=== PATIENT | female | born 1955 | race Caucasian/White ===

== ENCOUNTER 2018-12-08 11:05 | Outpatient (CLI) | payer OTHER ==
[2018-12-08] MEDS ORDERED: ISOVUE-370 76%-LOCM 1 ML ONE (15:22)
--- NOTE | 2018-12-08 16:18 | CT ---
Exam: Chest CT with contrast Abdomen CT with contrast Pelvic CT with contrast HISTORY: Breast cancer with new suspicious bone lesion. Evaluate for metastatic disease. Correlation: Abdomen and pelvic CT performed at [facility] in [place] 11/25/2018 COMPARISON: None FINDINGS: Chest CT: Mediastinum: No mass, lymphadenopathy or hematoma. Aorta: Normal caliber. No periaortic fat stranding Heart: Upper normal heart size. No significant pericardial fluid Trachea and central bronchi: Patent Pleural spaces: Small bilateral effusions Right lung: Minimal dependent atelectatic changes. Left lung:Minimal dependent atelectatic changes. Pneumothorax: None Abdomen CT: Gallbladder: Surgically absent Portal vein: Patent Liver: Enhancing focus in the anterior segment right hepatic lobe. Vessels course through this and a flash filling hemangioma is suspected.. Spleen: Appropriate enhancement Pancreas: Appropriate enhancement Adrenal glands: Appropriate enhancement Lymphadenopathy: No gastrohepatic, retrocrural or periportal lymphadenopathy Kidneys: Symmetric enhancement. Bilaterally no obstructive uropathy. Hypodensity in the upper pole of the left kidney and lower pole the right kidney are compatible with renal cortical cysts. Mesentery: No mass, lymphadenopathy, free air or free fluid Alimentary canal: No evidence of bowel obstruction. Normal caliber small bowel loops. Ileocecal junct ion is normal. Scattered fecal material in a nondistended, nondilated colon. Pelvis CT: Surgically absent uterus. No pelvic mass, lymphadenopathy, free air or free fluid. Unremarkable urina ry bladder. Osseous structures:Diffuse osseous metastases involving all of the thoracic and lumbar vertebra as we ll as multiple ribs. There is also diffuse bony metastases in the pelvis and sacrum. No evidence of a pathologic fracture. Central spinal canal is patent. IMPRESSION: 1. Diffuse osseous metastases. No pathologic fracture 2. Increased triangular-shaped density of the right hepatic lobe with vessels coursing through this region, likely representing a Bharath lesion. 3. Bilateral renal cortical cysts. No evidence of bowel obstruction 4. Dependent atelectatic changes in the lung bases Transcribed Date/Time: 12/08/2018 4:41 PM
== END 2018-12-08 11:06 | disposition home or self-care (01) ==
LOC: BICCT 11:05
PROVIDERS: ATTEND Internal Medicine Hematology & Oncology
DX: C50.919 Malignant neoplasm of unspecified site of unspecified female breast (principal); C79.51 Secondary malignant neoplasm of bone; K76.89 Other specified diseases of liver; N28.1 Cyst of kidney, acquired; R93.7 Abnormal findings on diagnostic imaging of other parts of musculoskeletal system; R97.8 Other abnormal tumor markers
CPT/HCPCS: 71260; 74177; Q9966

== ENCOUNTER 2018-12-15 10:23 | Outpatient (CLI) | payer OTHER ==
--- NOTE | 2018-12-15 15:40 | NM ---
WHOLE BODY BONE SCAN: HISTORY: Breast cancer with bone metastases RADIOPHARMACEUTICAL: 30 mCi technetium 99m-MDP injected intravenously COMPARISON: None CORRELATION: CT chest, abdomen and pelvis from 12/08/2018 FINDINGS: There is intense uptake in the axial skeleton particularly the spine and pelvis. There is heterogenei ty with foci of increased uptake in the skull and ribs and proximal femurs. Tracer excretion through the kidneys is within normal limits. IMPRESSION: Widespread osseous metastatic disease.
== END 2018-12-15 10:24 | disposition home or self-care (01) ==
LOC: NM 10:23
PROVIDERS: ATTEND Internal Medicine Hematology & Oncology
DX: C50.412 Malignant neoplasm of upper-outer quadrant of left female breast (principal); C79.51 Secondary malignant neoplasm of bone; R93.7 Abnormal findings on diagnostic imaging of other parts of musculoskeletal system
CPT/HCPCS: 78306; A9503

== ENCOUNTER 2018-12-23 11:15 | Outpatient (CLI) | payer OTHER ==
--- NOTE | 2018-12-23 14:55 | MRI ---
MRI THORACIC SPINE WITH AND WITHOUT CONTRAST: HISTORY: Metastatic breast cancer. COMPARISON: None. CORRELATION: Chest, abdomen, and pelvic CT 12/08/2018. FINDINGS: Diffuse T1 marrow signal hypointensity throughout the thoracic spine and lumbar spine. There is heter ogeneous enhancement at T7, T9, T10, T11. There is abnormal T1 marrow signal hypointensity at T12. Postcontrast images do not demonstrate any abnormal enhancement within the thecal sac including the c auda equina and conus medullaris. Mediastinum and lung parenchyma are grossly unremarkable. Small right sided pleural effusions, incomp letely evaluated. The thoracic cord has normal size and signal intensity. No cord expansion. No cord malacia. No abnorm al enhancement. Conus medullaris terminates at the T12-L1 disc space. T3-T4: Central/right paracentral disc protrusion. Mild central canal stenosis. T9 vertebral body: Mild central canal stenosis secondary to mild retropulsion from pathologic involve ment of the T9 vertebral body. T10: Moderate central canal stenosis secondary to retropulsion from a pathologic fracture at T10. Mild irregularity involving the posterior superior aspect of L1 due to pathologic fracture and result ant retropulsion. IMPRESSION: 1. Extensive osseous involvement of the visualized thoracic and upper lumbar vertebrae. There appear to be pathologic fractures at T7, T9 and T10. Mild retropulsion with associated mild central canal stenosis as described above. No additional pathologic fractures are appreciated. Varying degrees of central canal stenosis as detailed above. No abnormal enhancement with regards to the spinal cord. 2. Diffuse T1 marrow signal hypointensity. Heterogeneous enhancement is noted involving the pedicles and spinous processes throughout the thoracic spine. Transcribed Date/Time: 12/23/2018 3:06 PM
--- NOTE | 2018-12-23 15:17 | MRI ---
MRI LUMBAR SPINE WITH AND WITHOUT CONTRAST: Date: 12/23/18 INDICATION: Bone metastasis. History of breast cancer. T11 fracture. Comparison made to bone scan from 12/15/18 which exhibited diffuse abnormal activity throughout thora cic and lumbar spine. Comparison made to MRI lumbar spine dated 11/09/13. FINDINGS: There is diffuse abnormal signal throughout the visualized thoracic and lumbar vertebra. All visualiz ed vertebra exhibited abnormal low T1 signal. All vertebral bodies show abnormal enhancement on the p ostcontrast images. There are anterior compression deformities involving T10 and T11. Loss of height at T10 estimated in the 20% range. Loss of height at T11 estimated at 25-30%. Slight retropulsion at both of these levels effacing the thecal sac. At T11-T12, bony retropulsion compressions the thecal sac and abuts the conus. There is left foramina l encroachment. At T12-L1, no significant disc bulge. No central canal or foraminal stenosis. At L1-2, no significant disc bulge. Mild facet hypertrophy. No central canal or foraminal stenosis. At L2-3, mild disc bulge. Facet hypertrophy. No central canal or foraminal stenosis. At L3-4, mild disc bulge. Annular fissure with lateral bulge to the left. No significant central jocelyne l or foraminal stenosis. At L4-5, mild disc bulge. Facet hypertrophy. No significant central canal or foraminal stenosis. At L5-S1, mild disc bulge. Annular fissure with asymmetric bulge to the right. No central canal or fo raminal stenosis. IMPRESSION: Diffuse abnormal signal in all visualized thoracic, lumbar, and sacral vertebra consistent with diffu se metastatic involvement. Anterior compression deformities at T10 and T11 as described above. Mild r etropulsion at T10 and T11. The retropulsion abuts the conus at T11. There is diffuse involvement of posterior elements at all levels and involvement of the visualized sacrum bilaterally. POS: [facility]
== END 2018-12-23 11:16 | disposition home or self-care (01) ==
LOC: SCSMRI 11:15
PROVIDERS: ATTEND Neurological Surgery
DX: C79.51 Secondary malignant neoplasm of bone (principal); S22.080A Wedge compression fracture of T11-T12 vertebra, initial encounter for closed fracture
CPT/HCPCS: 72157; 72158

== ENCOUNTER 2018-12-26 09:39 | Inpatient (IN) | payer OTHER ==
[2018-12-26] MEDS ORDERED: Ondansetron PF 4 MG/2 ML Vial ONE ×3 (10:17→11:42)
[2018-12-26 11:11] LABS: Hemoglobin 10.6 g/dL (12.0-16.0); Mean Corpuscular HGB CONC 34.2 g/dL (32.0-36.0); Mean Corpuscular Hemoglobin 30.5 pg (27.0-31.0); Mean Corpuscular Volume 89.2 fL (78.0-98.0); Mean Platelet Volume 7.4 fL (7.4-10.4); Platelet Count 196 thou/uL (130-400); RBC Distribution Width 14.2 % (11.5-14.5); Red Blood Cell (RBC) Count 3.49 mill/uL (4.20-5.40)
[2018-12-26 11:28] LABS: ALT (SGPT) 43 U/L (8-55); AST (SGOT) 85 U/L (5-34); Albumin 3.8 g/dL (3.4-4.8); Alkaline Phosphatase 301 U/L (40-150); Anion Gap 19 mmol/L (10-20); BUN (Urea Nitrogen) 68 mg/dL (9.8-20.1); Bilirubin, Total 0.8 mg/dL (0.2-1.2); Calc. Creatinine Clearance 0 mL/min (70-130); Carbon Dioxide 27 mmol/L (23-31); Chloride 95 mmol/L (98-107); Estimated GFR-MDRD 16; Glucose 150 mg/dL (80-115); Magnesium 2.2 mg/dL (1.6-2.6); Potassium 3.4 mmol/L (3.5-5.1); Protein, Total 7.8 g/dL (6.0-8.3); Sodium 138 mmol/L (136-145)
[2018-12-26 11:30] LABS: Troponin I Less than 0.010 ng/mL (< 0.028)
[2018-12-26 11:32] LABS: Band 8 % (5-11); Calcium 15.6 mg/dL (7.8-10.44); Lymphocytes 13 % (21-51); MDiff Complete? YES; Metamyelocyte 1 % (0-0); Monocytes 5 % (0-10); Neutrophil 70 % (42-75); Nucleated RBC 1 % (0); Ovalocytes SLIGHT = 2-5 cells (100X) (0-1/hpf); Platelet Morphology Comment Appears Adequate; Polychromasia MODERATE = 3-4 cells (100X) (0-2/hpf); Reactive Lymphocytes 3 % (0-10); Tear Drops SLIGHT = 2-5 cells (100X) (0-1/hpf); White Blood Cell (WBC) Count 26.6 thou/uL (4.8-10.8)
[2018-12-26] MEDS ORDERED: HYDROmorphone 0.5 MG/0.5 ML SYRINGE ONE ×2 (11:41→11:42)
[2018-12-26] MEDS ORDERED: Sodium Chloride 0.9% 1,000 ML IV SCH (11:45)
[2018-12-26] MEDS ORDERED: Zoledronic Acid 4 MG in Sodium Chloride 0.9% 100 ML IVPB SCH (12:30)
[2018-12-26] MEDS ORDERED: Calcitonin,Salmon,Synthetic 200 UNITS/ML SC SCH (12:30)
[2018-12-26] MEDS: Sodium Chloride 0.9% 1,000 ML IV SCH ×2 (12:32→19:55)
[2018-12-26 13:11] LABS: Phosphorus 5.5 mg/dL (2.3-4.7)
[2018-12-26] MEDS ORDERED: Labetalol HCl 100 MG/20 ML VIAL SLOW IVP PRN (13:29)
[2018-12-26] MEDS ORDERED: Morphine 2 MG/ML SYRINGE SLOW IVP PRN (13:29)
[2018-12-26] MEDS ORDERED: Polyethylene Glycol 3350 17 GM Packet PO PRN (13:29)
[2018-12-26] MEDS: Calcitonin,Salmon,Synthetic 200 UNITS/ML SC SCH (13:32)
[2018-12-26] MEDS ORDERED: ALPRAZolam 0.25 MG TAB PO PRN (14:04)
[2018-12-26] MEDS ORDERED: HYDROcodone/Acetaminophen 5/325 mg Tablet PO PRN (14:04)
[2018-12-26] MEDS: Ondansetron PF 4 MG/2 ML Vial IVP PRN ×2 (15:35→22:38)
--- NOTE | 2018-12-26 16:32 | HP ---
PRIMARY CARE PHYSICIAN: Rafal Rodriguez. PRIMARY ONCOLOGIST: Dr. Marin. CHIEF COMPLAINT: Nausea, vomiting. HISTORY OF PRESENT ILLNESS: The patient is a 63-year-old female with breast cancer in the past, presented to the hospital with above complaints. Recently, the patient was found to have lytic lesion in the bones. She was scheduled for a bone biopsy today. However, around 7:00 am today she developed sudden onset of nausea along with several episodes of vomiting. The vomitus contained food which she had eaten. No abdominal pain, diarrhea, constipation, hematemesis, melena, or hematochezia reported. She denies any heartburn or jaundice. No recent changes in her medications. No fever, chills, dysuria, hematuria, urgency, or vertigo reported. PAST MEDICAL HISTORY: Breast cancer in the past, treated with chemotherapy. PAST SURGICAL HISTORY: 1. Cholecystectomy. 2. Hysterectomy. 3. Breast lumpectomy. ALLERGIES: THE PATIENT DENIES ANY DRUG ALLERGIES. CURRENT HOME MEDICATIONS: The patient is unable to recall all of her home medications. Family to bring accurate list of medications. SOCIAL HISTORY: The patient currently lives at home with her family. No smoking, alcohol, or drug use. FAMILY HISTORY: Positive for mother with ovarian cancer. Father with lung cancer. REVIEW OF SYSTEMS: All other review of systems were reviewed and were found negative. PHYSICAL EXAMINATION: VITAL SIGNS: In the emergency room showed temperature 97.5, respirations of 18, pulse of 91, blood pressure of 103/56, O2 saturation 91% on room air. GENERAL: A 63-year-old ill-appearing female. Current pain level is 1/10. HEENT: Head, atraumatic and normocephalic. Sclerae anicteric. Dry mucous membranes. No oral lesion. NECK: Supple. No JVD appreciated. No carotid bruit. LUNGS: Showed diminished air entry at bilateral bases. No wheezing, rales, or rhonchi. HEART: S1 and S2 present. Tachycardic. No rubs or gallops. ABDOMEN: Soft, nontender. Bowel sounds present. No rebound or guarding. No costovertebral angle tenderness. EXTREMITIES: No edema or calf tenderness. NEUROLOGIC: Grossly nonfocal. Moves all 4 extremities. Power was 5/5 in all extremities. PSYCHIATRY: Alert, awake oriented x3. SKIN: Warm and dry. LYMPH NODES: No palpable lymph nodes in the neck. PERIPHERAL VASCULAR: Radial pulses palpable bilaterally. MUSCULOSKELETAL no joint swelling tenderness. LABORATORY FINDINGS: Calcium 15.6 with phosphorus 5.5, alkaline phosphatase 301. Troponin was negative. Potassium was 3.4, sodium 138, chloride 95, bicarb 27. WBC of 26.6 with 70% neutrophils, hemoglobin 10.6. Recent bone scan by my review showed widespread osseous metastatic disease. EKG by my review showed sinus tachycardia without significant ST-T wave changes. IMPRESSION: 1. Severe hypercalcemia suspected to be secondary to metastatic disease. 2. Dehydration with acute kidney injury on chronic kidney disease stage 3. 3. Acute Metabolic Encephalopathy 4. Hypokalemia/Hyperphosphatemia. 5. Anemia, suspected chronic. 6. Leukocytosis unlikely to be infectious. 7. History of breast cancer in the past. 8. Sinus tachycardia secondary to dehydration. 9. Anxiety. 10. Constipation. 11. Chronic low back pain/ T11 Compression fracture PLAN: The patient will be monitored on the telemetry unit due to significant hypercalcemia. We will continue aggressive IV hydration. We will check vitamin D and PTH as well. We will start her on calcitonin as well as Zolendronic acid. Oncology consultation. We will hold Lovenox due to possible bone biopsy. Please note, the patient was scheduled for bone biopsy today. We will treat constipation. Urinalysis will be done. Recheck labs in a.m. Clear liquid diet and advance as tolerated. Plan of care was discussed with the patient and the family at the bedside. They stated understanding. CODE STATUS: Full code. Job ID: [id number] MTDD
[2018-12-26] MEDS ORDERED: Ondansetron HCl/PF 8 MG in Sodium Chloride 0.9% 50 ML IVPB PRN (17:50)
[2018-12-26 20:15] LABS: Bacteria/HPF 3+ HPF (None Seen); Bilirubin Negative (Negative); Blood, Urine Trace (Negative); Clarity Clear (Clear); Glucose, Urine (Dipstick) 70 mg/dL (Negative); Leukocyte Negative Leu/uL (Negative); Nitrite Negative (Negative); Protein, Urine (Dipstick) 20 mg/dL (Neg-Trace); RBC/HPF 0-3 HPF (0-3); Squamous Epithelial None Seen HPF (0-3); Urobilinogen Normal mg/dL (Less than 2)
[2018-12-26] MEDS ORDERED: Senokot S 8.6-50 MG TAB PO SCH (21:00)
[2018-12-26] MEDS ORDERED: Famotidine/PF 20 mg/2ml Vial SLOW IVP SCH (21:00)
[2018-12-26] MEDS: Senokot S 8.6-50 MG TAB PO SCH (22:18)
[2018-12-26] MEDS: HYDROcodone/Acetaminophen 10/325 mg Tablet PO PRN (22:19)
[2018-12-26] MEDS: Polyethylene Glycol 3350 17 GM Packet PO SCH (22:19)
[2018-12-26] MEDS: clonazePAM 1 MG TAB PO SCH (22:22)
[2018-12-26] MEDS: Famotidine 20 MG TAB PO SCH (22:22)
--- NOTE | 2018-12-27 00:26 | CON ---
DATE OF CONSULTATION: REASON FOR CONSULT: Breast cancer. HISTORY OF PRESENT ILLNESS: Ms. Chu is a 63-year-old female who had breast cancer initially diagnosed in 2016. She underwent treatment with chemotherapy and Femara for 5 years. She last saw Dr. Moura in 2011 and was followed by her PCP with annual mammograms. She began to have back pain 3 to 4 weeks ago and had a CT scan which showed diffuse mild appearance of her bone marrow throughout the lumbar spine and pelvis. There was a wedge compression deformity at T11. She then underwent a CT of the chest, abdomen, and pelvis, and a bone scan which showed diffuse bone mets throughout the skeleton. Her pain was a 10/10. She had a back brace ordered. Plan was to have an iliac biopsy for diagnosis. Today, unfortunately, she began to have nausea and was sent to the emergency room. Her lab on arrival showed a calcium of 15.6 and a creatinine of 2.96. Her last creatinine on 12/02 was normal. She was started on IV hydration, given Zometa and calcitonin and admitted for hypercalcemia. She complains of pain in her back with any movement. She does continue to have nausea and has had intermittent emesis since arrival. PAST MEDICAL HISTORY: 1. Invasive lobular carcinoma of the left breast status post lumpectomy, chemotherapy. 2. New T11 fracture with bone mets. 3. Dyslipidemia. 4. Migraines. 5. Spondylosis. PAST SURGICAL HISTORY: 1. Cholecystectomy. 2. DAVE-BSO. 3. Partial mastectomy and sentinel node sampling. ALLERGIES: NO KNOWN DRUG ALLERGIES. HOME MEDICATIONS: 1. Pravastatin 40 mg daily. 2. [place] 10/325 p.r.n. 3. MS Contin 30 mg b.i.d. 4. Klonopin 1 mg at bedtime. FAMILY HISTORY: Mother had cervical cancer. Father had lung, prostate, and bladder cancer. SOCIAL HISTORY: , has 2 children. Lives with her spouse. No alcohol, tobacco, or illicit drug use. REVIEW OF SYSTEMS: Positive for constipation, back pain, and nausea. Otherwise, 10-point review of systems is negative. PHYSICAL EXAMINATION: VITAL SIGNS: Temperature is 98.6, pulse is 117, respiratory rate 18, BP is 130/74, she is 96% on 2 L. GENERAL: This is a well-developed, well-nourished female, in no acute distress. HEENT: Normocephalic, atraumatic. Pupils are equal and reactive to light. NECK: Supple. CV: Regular rate and rhythm. LUNGS: Clear to auscultation. ABDOMEN: Soft and nontender. Bowel sounds are positive. EXTREMITIES: No clubbing, cyanosis, or edema. SKIN: No rash. HEMATOLOGICAL: No petechiae or purpura. NEUROLOGIC: Nonfocal. PSYCH: She is alert and oriented and appropriate. PERTINENT LABORATORY DATA AND X-RAYS: Current WBCs 26.6, hemoglobin 10.6, hematocrit 31.1, and platelet count 196,000, she has 70% neutrophils, 8% bands, 13% lymphocytes. Sodium 138, potassium 3.4, chloride 95, CO2 is 27, BUN is 68, creatinine 2.96, calcium 15.6, phosphorus 5.5, magnesium 2.2, bilirubin 0.8, AST is 85, ALT is 43, alkaline phosphatase is 301. Troponin is negative. Serum total protein 7.8, albumin 3.8, globulin 4.0, PTH is 21.7, vitamin D is normal. ASSESSMENT: 1. Diffuse osseous bone metastases. 2. Hypercalcemia. 3. Nausea and vomiting. 4. Intractable pain. DISCUSSION: The patient has received treatment for hypercalcemia. She continues on IV fluids. We will recheck her creatinine in the morning. Her baseline is a normal value. She is on IV morphine for pain with p.r.n. [place]. If her creatinine is improved in the morning, I will resume her MS Contin b.i.d. We will increase her dose of Zofran. We do want a biopsy of her iliac bone lesion prior to discharge to confirm malignancy. She has a followup appointment with Dr. Patricio for radiation for pain. Case has been discussed with Dr. Marin, who will see the patient and follow. Thank you for the consult. Job ID: [id number]
[2018-12-27] MEDS: HYDROcodone/Acetaminophen 10/325 mg Tablet PO PRN (02:49)
[2018-12-27] MEDS: Calcitonin,Salmon,Synthetic 200 UNITS/ML SC SCH ×2 (02:50→17:38)
[2018-12-27] MEDS: Sodium Chloride 0.9% 1,000 ML IV SCH ×4 (03:52→14:08)
[2018-12-27 04:26] LABS: ALT (SGPT) 39 U/L (8-55); AST (SGOT) 78 U/L (5-34); Alkaline Phosphatase 219 U/L (40-150); Anion Gap 14 mmol/L (10-20); BUN (Urea Nitrogen) 48 mg/dL (9.8-20.1); Bilirubin, Total 0.5 mg/dL (0.2-1.2); Calc. Creatinine Clearance 25 mL/min (70-130); Calcium 10.9 mg/dL (7.8-10.44); Carbon Dioxide 26 mmol/L (23-31); Chloride 108 mmol/L (98-107); Estimated GFR-MDRD 25; Glucose 102 mg/dL (80-115); Potassium 3.7 mmol/L (3.5-5.1); Sodium 144 mmol/L (136-145)
[2018-12-27 06:01] LABS: #Basophils 0.1 thou/uL (0.0-0.2); #Eosinphils 0.1 thou/uL (0.0-0.7); #Lymphocytes 3.9 thou/uL (1.20-3.40); #Monocytes 1.6 thou/uL (0.11-0.59); #Neutrophils 14.5 thou/uL (1.40-6.50); %Basophils 0.3 % (0.0-1.0); %Eosinophils 0.7 % (0.0-10.0); %Lymphocytes 19.4 % (21.0-51.0); %Monocytes 7.9 % (0.0-10.0); %Neutrophils 71.7 % (42.0-75.0); Hemoglobin 8.5 g/dL (12.0-16.0); Mean Corpuscular HGB CONC 33.3 g/dL (32.0-36.0); Mean Corpuscular Hemoglobin 30.5 pg (27.0-31.0); Mean Corpuscular Volume 91.5 fL (78.0-98.0); Mean Platelet Volume 6.9 fL (7.4-10.4); Platelet Count 165 thou/uL (130-400); RBC Distribution Width 14.4 % (11.5-14.5); Red Blood Cell (RBC) Count 2.77 mill/uL (4.20-5.40); White Blood Cell (WBC) Count 20.2 thou/uL (4.8-10.8)
[2018-12-27 08:28] LABS: INR-International Normal Ratio 1.1; Prothrombin Time 14.4 SEC (12.0-14.7)
[2018-12-27 08:29] LABS: PTT 32.2 SEC (22.9-36.1)
[2018-12-27] MEDS ORDERED: Fleet Enema 133 ML BOT PR SCH (08:45)
[2018-12-27] MEDS ORDERED: Prevnar 13-Val Conj/PF 0.5 ML SYRINGE IM ONE (09:00)
[2018-12-27] MEDS ORDERED: Morphine 4 MG/ML VIAL SLOW IVP SCH (09:00)
[2018-12-27] MEDS ORDERED: Enoxaparin Sodium 30 MG/0.3 ML SYRINGE SC SCH (09:00)
[2018-12-27] MEDS: Bisacodyl 10 MG SUPP PR SCH (09:30)
[2018-12-27] MEDS: Polyethylene Glycol 3350 17 GM Packet PO SCH (09:30)
[2018-12-27] MEDS: Senokot S 8.6-50 MG TAB PO SCH ×2 (09:31→21:33)
[2018-12-27] MEDS ORDERED: Sodium Bicarbonate 2.5 MEQ/5 ML VIAL ONE (12:39)
--- NOTE | 2018-12-27 12:59 | PDOC.HOSPP ---
- Subjective Encounter Date: 12/27/18 Encounter Time: 11:30 Subjective: Patient seen and examined for Hypercalcemia. Feels better. NPO for bone biopsy today. Nausea +. No new complaints. No overnight events - Objective Vital Signs & Weight: Vital Signs (12 hours) Temp Pulse Resp BP BP Pulse Ox 12/27/18 11:30 99 F 101 H 20 117/66 93 L 12/27/18 10:32 95 12/27/18 08:35 114/63 12/27/18 08:26 98.9 F 101 H 14 109/63 98 12/27/18 08:00 98 12/27/18 03:47 99.0 F 98 16 110/63 98 Weight Weight 121 lb 1.6 oz I&O: 12/26/18 12/27/18 12/28/18 06:59 06:59 06:59 Intake Total 50 Output Total 1550 Balance -1500 Result Diagrams: 12/27/18 05:55 12/27/18 03:36 Additional Labs: Laboratory Tests 12/26/18 12/26/18 12:43 12:43 25-OH Vitamin D Total 36.3 PTH Intact 21.7 EKG Reviewed by me: Yes (Tele SR) Hospitalist ROS - Review of Systems Respiratory: denies: cough, dry, shortness of breath, hemoptysis, SOB with excertion, pleuritic pain, sputum, wheezing, other Cardiovascular: denies: chest pain, palpitations, orthopnea, paroxysmal noc. dyspnea, edema, light headedness, other - Medication Medications: Active Medications Generic Name Dose Route Start Last Admin Trade Name Freq PRN Reason Stop Dose Admin Hydrocodone Bitart/Acetaminophen 1 tab 12/26/18 16:19 12/27/18 02:49 [place] 10/325 PO 1 tab Q4H PRN Administration Severe Pain (7-10) Bisacodyl 10 mg 12/27/18 09:00 12/27/18 09:30 Dulcolax NE Not Given DAILY REBEKAH Calcitonin [place] 200 units 12/26/18 13:00 12/27/18 02:50 [place] SC 12/28/18 01:01 180 unit 0100,1300 REBEKAH Administration Clonazepam 1 mg 12/26/18 21:00 12/26/18 22:22 Klonopin PO 1 mg Q24HR ERBEKAH Administration Famotidine 20 mg 12/26/18 21:00 12/26/18 23:25 Pepcid SLOW IVP Not Given QPM REBEKAH Famotidine 20 mg 12/26/18 21:00 12/26/18 22:22 Pepcid PO 20 mg QPM REBEKAH Administration Sodium Chloride 1,000 mls @ 200 mls/hr 12/26/18 12:22 12/27/18 09:29 Normal Saline 0.9% IV 1,000 mls .Q5H REBEKAH Administration Ondansetron HCl 4 mg 12/26/18 13:27 12/26/18 22:38 Zofran IVP 4 mg Q6H PRN Administration Nausea/Vomiting Polyethylene Glycol 17 gm 12/26/18 21:00 12/27/18 09:30 Miralax PO Not Given BID REBEKAH Senna/Docusate Sodium 2 tab 12/26/18 21:00 12/27/18 09:31 Senokot S PO Not Given BID REBEKAH - Exam General Appearance: NAD Neck: supple, no JVD Heart: RRR, no gallops, no rubs, normal peripheral pulses Respiratory: CTAB, no wheezes, no rales, no ronchi Gastrointestinal: soft, non-tender, non-distended, normal bowel sounds Extremities: no cyanosis, no clubbing, no edema Neurological: no new deficit Psychiatric: normal affect, A&O x 3 Hosp A/P - Plan IMPRESSION: 1. Severe hypercalcemia suspected to be secondary to metastatic disease. s/p Zoledronic acid and Calcitonin 2. Dehydration with acute kidney injury on chronic kidney disease stage 3. 3. Acute Metabolic Encephalopathy 4. Hypokalemia/Hyperphosphatemia. 5. Anemia, suspected chronic. 6. Leukocytosis unlikely to be infectious. 7. History of breast cancer in the past. 8. Sinus tachycardia secondary to dehydration. 9. Anxiety. 10. Constipation. 11. Chronic low back pain/ T11 Compression fracture PLAN: Reduce IVF to 150 ml/hr Add Lactulose Bone biopsy today AM labs Consult Neurosurgery for activity recommendation due to compression fracture
[2018-12-27] MEDS ORDERED: Fentanyl 100 MCG/2 ML VIAL ONE (13:01)
[2018-12-27] MEDS ORDERED: Morphine Sulfate 2 MG/ML SYRINGE SLOW IVP PRN (14:22)
[2018-12-27] MEDS ORDERED: Ondansetron HCl/PF 4 MG/2 ML Vial IVP PRN (14:22)
[2018-12-27] MEDS ORDERED: Promethazine HCl 25 MG/ML VIAL SLOW IVP PRN (14:22)
[2018-12-27] MEDS ORDERED: PACU-Morphine 4MG/ML VIAL SLOW IVP PRN (14:22)
[2018-12-27] MEDS ORDERED: Promethazine HCl 25 MG/ML VIAL IM PRN (14:22)
[2018-12-27] MEDS ORDERED: Meperidine HCl/PF 25 MG/ML VIAL SLOW IVP PRN (14:22)
[2018-12-27] MEDS ORDERED: HYDROmorphone 2 MG/ML VIAL SLOW IVP PRN (14:22)
--- NOTE | 2018-12-27 15:16 | CT ---
CT-guided bone biopsy HISTORY: Diffuse sclerotic metastatic disease. FINDINGS: Anesthesia was administered per the anesthesia department. After explaining the procedure a nd answering all questions, limited CT imaging of the pelvis was performed. Sterile technique, buffered local anesthesia, CT guidance, and a posterior approach were used to carefully advance a 11- gauge bone biopsy needle to the posterior aspect of the left iliac bone. Care was taken to avoid the sacroiliac joint. A 11-gauge specimen was obtained with the bone marrow biopsy kit. Specimen adequacy was confirmed by Dr. Lockett from pathology, and a second sample was requested. A seco nd pass was made, again yielding a good core of tissue. Needle was removed. Postprocedure imaging shows no evidence of complication. Patient tolerated procedure well and was returned in unchanged con dition. IMPRESSION: Technically successful CT-guided pelvic bone biopsy. Pathology is pending.
[2018-12-27] MEDS ORDERED: Ondansetron PF 4 MG/2 ML Vial ONE (16:56)
[2018-12-27] MEDS ORDERED: Lidocaine 1% PF 5 ML VIAL ONE (16:56)
[2018-12-27] MEDS ORDERED: Glycopyrrolate 0.2 MG/ML 5 ML SYRINGE ONE (16:56)
[2018-12-27] MEDS ORDERED: Rocuronium Bromide 10 MG/ML (10ML VIAL) ONE (16:56)
[2018-12-27] MEDS ORDERED: ePHEDrine 50 MG/ML VIAL ONE (16:56)
[2018-12-27] MEDS ORDERED: PHENYLEPHRINE-NS 100 MCG/ML 10 ML SYRINGE ONE (16:56)
[2018-12-27] MEDS ORDERED: Succinylcholine Chloride 20 MG/ML 10 ml SYRINGE FS ONE (16:56)
[2018-12-27] MEDS ORDERED: Dexamethasone 20 MG/5 ML VIAL ONE (16:56)
[2018-12-27] MEDS ORDERED: PROPOFOL 200 MG/20 ML VIAL ONE (16:56)
--- NOTE | 2018-12-27 18:38 | PDOC.MOPN ---
Interval History: Pt c/o continued pain which is 1-2/10 when lying flat and not moving but 10/10 when she does. She has nausea and severe constipation. She has had 1 BM in the last 2 weeks. Her last BM was like "concrete" so she has not been taking her stool softeners because she doesn't want to go through that again. Also with generalized weakness, especially in the legs. - Vital Signs Vital Signs: Vital Signs (12 hours) Temp Pulse Pulse Resp BP BP Pulse Ox 12/27/18 15:43 98.9 F 96 18 127/73 99 12/27/18 15:04 97.5 F L 106 H 18 146/86 H 99 12/27/18 11:30 99 F 101 H 20 117/66 93 L 12/27/18 10:32 95 12/27/18 08:35 114/63 12/27/18 08:34 98 112/68 12/27/18 08:26 98.9 F 101 H 14 109/63 98 12/27/18 08:00 98 Weight Admit Weight 121 lb 1.6 oz Weight 121 lb 1.6 oz - Physical Exam General: Alert, Oriented x3, Cooperative, No acute distress HEENT: EOMI Lungs: Normal air movement Cardiovascular: Regular rate Abdomen: Soft, No tenderness Neurological: Cranial nerves 3-12 NL - Labs Result Diagrams: 12/27/18 05:55 12/27/18 03:36 Lab results: Laboratory Results - last 24 hr 12/27/18 08:15: PT 14.4, INR 1.1, APTT 32.2 12/27/18 05:55: WBC 20.2 H, RBC 2.77 L, Hgb 8.5 L, Hct 25.4 L, MCV 91.5, MCH 30.5, MCHC 33.3, RDW 14.4, Plt Count 165, MPV 6.9 L, Neutrophils % 71.7, Lymphocytes % 19.4 L, Monocytes % 7.9, Eosinophils % 0.7, Basophils % 0.3, Neutrophils # 14.5 H, Lymphocytes # 3.9 H, Monocytes # 1.6 H, Eosinophils # 0.1 , Basophils # 0.1 12/27/18 03:36: Sodium 144, Potassium 3.7, Chloride 108 H, Carbon Dioxide 26, Anion Gap 14, BUN 48 H, Creatinine 2.04 H, Estimated GFR (MDRD) 25, Glucose 102 , Calcium 10.9 H, Total Bilirubin 0.5, AST 78 H, ALT 39, Alkaline Phosphatase 219 H, Serum Total Protein 6.0, Albumin 3.0 L, Globulin 3.0, Albumin/Globulin Ratio 1.0 L 12/26/18 20:00: Urine Color Light-Yellow, Urine Clarity Clear, Urine pH 6.0, Ur Specific [place] 1.012, Urine Protein 20, Urine Glucose (UA) 70 A, Urine Ketones Negative, Urine Blood Trace A, Urine Nitrite Negative, Urine Bilirubin Negative, Urine Urobilinogen Normal, Ur Leukocyte Esterase Negative, Urine RBC 0 -3, Urine WBC 4-6 A, Ur Squamous Epith Cells None Seen, Urine Bacteria 3+ A, Hyaline Casts 0-3 A/P - Problem (1) Hypercalcemia of malignancy Current Visit: Yes Code(s): E83.52 - HYPERCALCEMIA Status: Acute (2) Bone metastases Current Visit: Yes Code(s): C79.51 - SECONDARY MALIGNANT NEOPLASM OF BONE Status: Acute - Plan Plan: Enema today, encourage compliance with bowel regimen Bone biopsy today [place], Morphine prn pain; restart MS Contin tomorrow pending further improvement in creatinine Dr. Patricio will do simulation today or tomorrow in order to move forward with palliative XRT cont IVF for hypercalcemia - dramatically improved
[2018-12-27] MEDS: Morphine 4 MG/ML VIAL SLOW IVP PRN (20:41)
[2018-12-27] MEDS: Famotidine 20 MG TAB PO SCH ×2 (21:33→22:28)
[2018-12-27] MEDS: clonazePAM 1 MG TAB PO SCH (21:33)
[2018-12-28] MEDS: Polyethylene Glycol 3350 17 GM Packet PO SCH ×3 (00:36→21:40)
[2018-12-28] MEDS: Sodium Chloride 0.9% 1,000 ML IV SCH (00:36)
[2018-12-28] MEDS: Calcitonin,Salmon,Synthetic 200 UNITS/ML SC SCH (02:20)
[2018-12-28 05:47] LABS: #Eosinphils 0.4 thou/uL (0.0-0.7); #Lymphocytes 3.8 thou/uL (1.20-3.40); #Monocytes 1.3 thou/uL (0.11-0.59); #Neutrophils 12.3 thou/uL (1.40-6.50); %Basophils 0.3 % (0.0-1.0); %Eosinophils 2.4 % (0.0-10.0); %Lymphocytes 21.1 % (21.0-51.0); %Monocytes 7.4 % (0.0-10.0); %Neutrophils 68.8 % (42.0-75.0); Hemoglobin 7.6 g/dL (12.0-16.0); Mean Corpuscular Volume 91.2 fL (78.0-98.0); Mean Platelet Volume 6.8 fL (7.4-10.4); Platelet Count 186 thou/uL (130-400); RBC Distribution Width 14.8 % (11.5-14.5); Red Blood Cell (RBC) Count 2.44 mill/uL (4.20-5.40); White Blood Cell (WBC) Count 17.8 thou/uL (4.8-10.8)
[2018-12-28 06:13] LABS: ALT (SGPT) 39 U/L (8-55); AST (SGOT) 80 U/L (5-34); Albumin 2.9 g/dL (3.4-4.8); Alkaline Phosphatase 208 U/L (40-150); Anion Gap 13 mmol/L (10-20); BUN (Urea Nitrogen) 28 mg/dL (9.8-20.1); Bilirubin, Total 0.4 mg/dL (0.2-1.2); Calc. Creatinine Clearance 37 mL/min (70-130); Calcium 8.4 mg/dL (7.8-10.44); Carbon Dioxide 22 mmol/L (23-31); Chloride 112 mmol/L (98-107); Estimated GFR-MDRD 39; Globulin 2.8 g/dL (2.4-3.5); Glucose 116 mg/dL (80-115); Potassium 3.1 mmol/L (3.5-5.1); Protein, Total 5.7 g/dL (6.0-8.3); Sodium 144 mmol/L (136-145)
[2018-12-28] MEDS: Potassium Chloride 20 MEQ TAB PO SCH ×2 (07:57→08:19)
[2018-12-28] MEDS: HYDROcodone/Acetaminophen 10/325 mg Tablet PO PRN ×2 (07:58→17:05)
[2018-12-28] MEDS: Ondansetron PF 4 MG/2 ML Vial IVP PRN ×2 (07:58→14:23)
[2018-12-28] MEDS: 1/2 NS w/KCL 20 mEq 1,000 ML IV SCH (08:50)
[2018-12-28] MEDS ORDERED: Mineral Oil ENEMA PR SCH (09:30)
[2018-12-28] MEDS: Morphine ER 30 MG TAB PO SCH ×2 (10:01→21:41)
[2018-12-28] MEDS: Bisacodyl 10 MG SUPP PR SCH (10:11)
[2018-12-28] MEDS: Senokot S 8.6-50 MG TAB PO SCH ×2 (11:06→21:41)
--- NOTE | 2018-12-28 11:33 | PDOC.HOSPP ---
- Subjective Encounter Date: 12/28/18 Encounter Time: 09:00 Subjective: Patient seen and examined for gen weakness/hypercalcemia. Constipated/nausea +. No new complaints. No overnight events - Objective Vital Signs & Weight: Vital Signs (12 hours) Temp Pulse Pulse Pulse Resp BP BP 12/28/18 09:39 106 H 95 102/61 100/61 12/28/18 07:59 98.7 F 106 H 20 12/28/18 03:50 97.9 F 112 H 16 12/28/18 00:49 88 12/27/18 23:48 98.1 F 90 16 BP Pulse Ox 12/28/18 09:39 12/28/18 07:59 111/67 95 12/28/18 03:50 115/66 96 12/28/18 00:49 105/56 L 12/27/18 23:48 89/56 L 96 Weight Admit Weight 121 lb 1.6 oz Weight 121 lb 11.2 oz I&O: 12/27/18 12/28/18 12/29/18 06:59 06:59 06:59 Intake Total 50 3909 1300 Output Total 1550 1300 850 Balance -1500 2609 450 Result Diagrams: 12/28/18 04:40 12/28/18 04:40 EKG Reviewed by me: Yes (Tele SR) Hospitalist ROS - Review of Systems Respiratory: denies: cough, dry, shortness of breath, hemoptysis, SOB with excertion, pleuritic pain, sputum, wheezing, other Cardiovascular: denies: chest pain, palpitations, orthopnea, paroxysmal noc. dyspnea, edema, light headedness, other Gastrointestinal: denies: nausea, vomiting, abdominal pain, diarrhea, constipation, melena, hematochezia, other - Medication Medications: Active Medications Generic Name Dose Route Start Last Admin Trade Name Freq PRN Reason Stop Dose Admin Hydrocodone Bitart/Acetaminophen 1 tab 12/26/18 16:19 12/28/18 07:58 [place] 10/325 PO 1 tab Q4H PRN Administration Severe Pain (7-10) Bisacodyl 10 mg 12/27/18 09:00 12/28/18 10:11 Dulcolax [place] Not Given DAILY REBEKAH Clonazepam 1 mg 12/26/18 21:00 12/27/18 21:33 Klonopin PO 1 mg Q24HR REBEKAH Administration Famotidine 20 mg 12/26/18 21:00 12/27/18 22:28 Pepcid PO 20 mg QPM REBEKAH Administration Potassium Chloride/Sodium Chloride 1,000 mls @ 75 mls/hr 12/28/18 06:30 12/28 08:50 1/2 Ns W/Kcl 20 Meq IV 1,000 mls .[id number] REBEKAH Administration Lactulose 10 gm 12/27/18 15:00 12/28/18 08:58 Lactulose PO 10 gm TID REBEKAH Administration Mineral Oil 133 ml 12/28/18 09:30 12/28/18 10:48 Fleet Mineral Oil VA 12/28/18 11:30 Not Given NOW [facility] Morphine Sulfate 4 mg 12/26/18 17:50 12/27/18 20:41 Morphine SLOW IVP 4 mg Q4H PRN Administration Moderate to Severe Pain (6-10) Morphine Sulfate 30 mg 12/28/18 09:00 12/28/18 10:01 Ms Contin PO Not Given Q12HR [facility] Ondansetron HCl 4 mg 12/26/18 13:27 12/28/18 07:58 Zofran IVP 4 mg Q6H PRN Administration Nausea/Vomiting Polyethylene Glycol 17 gm 12/26/18 21:00 12/28/18 11:06 Miralax PO Not Given BID [facility] Senna/Docusate Sodium 2 tab 12/26/18 21:00 12/28/18 11:06 Senokot S PO Not Given BID [facility] - Exam General Appearance: NAD Neck: no JVD Heart: RRR, no gallops Respiratory: CTAB, no rales Gastrointestinal: soft, non-distended Extremities: no edema Hosp A/P - Plan IMPRESSION: 1. Severe hypercalcemia suspected to be secondary to metastatic disease. s/p Zoledronic acid and Calcitonin 2. Dehydration with acute kidney injury on chronic kidney disease stage 3. 3. Acute Metabolic Encephalopathy 4. Hypokalemia/Hyperphosphatemia. 5. Anemia, suspected chronic. 6. Leukocytosis unlikely to be infectious. 7. History of breast cancer in the past. 8. Sinus tachycardia secondary to dehydration. 9. Anxiety. 10. Constipation. 11. Chronic low back pain/ T11 Compression fracture PLAN: Cont IVF Replace potassium AM Labs Treat constipation Brace for compression fracture Bone biopsy report pending AM labs
[2018-12-28] MEDS: Morphine 4 MG/ML VIAL SLOW IVP PRN (14:23)
[2018-12-28] MEDS ORDERED: Methyl Salicylate/Menthol 85 GM TUBE TOP PRN (18:36)
[2018-12-28] MEDS: Simethicone Chewable 80 MG TAB PO PRN (21:41)
[2018-12-28] MEDS: clonazePAM 1 MG TAB PO SCH (21:42)
[2018-12-28] MEDS: Famotidine 20 MG TAB PO SCH (21:42)
[2018-12-29] MEDS: 1/2 NS w/KCL 20 mEq 1,000 ML IV SCH ×2 (00:33→17:17)
[2018-12-29] MEDS: Simethicone Chewable 80 MG TAB PO PRN (05:54)
[2018-12-29] MEDS: HYDROcodone/Acetaminophen 10/325 mg Tablet PO PRN ×2 (05:54→13:11)
[2018-12-29 06:17] VITALS: BMI 21.1
--- NOTE | 2018-12-29 08:07 | CON ---
DATE OF CONSULTATION: HISTORY OF PRESENT ILLNESS: Ms. Chu is a 63-year-old female, who presented to the emergency department on Wednesday for generalized weakness, pain, nausea, and vomiting. She has known breast cancer that was treated in 2005. She has been doing well until approximately October when she started having lumbar back pain and thoracic back pain. Workup has been done showing metastasis to her bones. We saw her in the office on December 19 of this month, wanting to know if there is any surgical intervention that we could offer her. She has compression fractures in T11 and T10 and lytic lesions in 7 to 10 vertebra that would need treatment. At this point, we recommended bracing with a clamshell brace. The patient was admitted on Wednesday. She was supposed to get a biopsy on Wednesday, however, that was delayed until yesterday. Neurosurgery has been consulted for these compression fractures. She is currently resting in hospital bed when I see her. Her and her son are at the bedside. She seems to be in relatively good spirits. However, if she moves upper or lower extremities or tries to sit up more, she has an extreme pain in her back. She has not been able to get out of bed and not eating, most of the time she has not been walking since approximately Wednesday due to pain. She is scheduled to start radiation tomorrow and is hoping that this will make a significant difference in her pain. When she is not moving, her pain is relatively well controlled with pain medication. She is able to move all 4 extremities well, however, any resistance does cause increased pain in her spine. She has normal sensation in her extremities as well . REVIEW OF SYSTEMS: A 10-point review of systems has been completed and is negative other than stated in the above HPI. PAST MEDICAL HISTORY: Breast cancer, hyperlipidemia. PAST SURGICAL HISTORY: Cholecystectomy, hysterectomy, breast cancer. FAMILY HISTORY: Father was , diagnosed with cancer. Mother was , diagnosed with cancer. SOCIAL HISTORY: Former smoker, quit over 40 years ago. She is . She has children. She drinks alcohol occasionally. Denies other illicit drug use. MEDICATIONS: Klonopin, hydrocodone-acetaminophen. ALLERGIES: NO KNOWN DRUG ALLERGIES. PHYSICAL EXAMINATION: VITAL SIGNS: Temperature 97.4, heart rate 96, respirations 16, O2 saturations 95% on room air, blood pressure 101/55. CONSTITUTIONAL: The patient is awake, alert, and oriented. She does appear to be in pain, but nontoxic. HEENT. Head is normocephalic and atraumatic. Pupils are equal, round, and reactive to light. Extraocular movements are intact. Hearing is intact. Moist mucous membranes. RESPIRATIONS: Normal work of breathing on room air. Symmetric chest rise. EXTREMITIES: Upper and lower extremities have normal range of motion. Generalized weakness due to increased pain. She has strong contact worker lithography strength, biceps, triceps, deltoids, and more hip flexion and extension, knee flexion, extension, dorsiflexion, plantar flexion, but pain is increased with these motions. She has normal sensation bilaterally. Reflexes are symmetric. NEUROLOGIC: The patient is awake, alert, and oriented x3. Speech is spontaneous and fluent. Normal fund of knowledge. Cranial nerves are tested and intact. There are no lateralizing sensory or motor deficits. ASSESSMENT/PLAN: Ms. 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 She is in significant pain due to this cancer and has been unable to walk. She had significant nausea and vomiting and medications are helping now that she is in the hospital and on IV fluids as well. She had a biopsy done yesterday, starting radiation today. We have ordered a clamshell thoracolumbar brace for support. This should give her better support than her previous brace that was not controlling her pain. Regular kyphoplasty is not recommended at this time. The brace and radiation should help significantly. There is an [employer] bone tumor ablation system by [employer] that could possibly be used for this patient; however, [facility] does not have this. If the patient desires treatment with this product, she will need to be transferred to [facility]. This procedure is a combination that kills the tumor and provides kyphoplasty. She has 7 to 10 vertebra with tumor in it. This would be an extensive treatment. At this time, there is no other neurosurgical interventions that are necessary and if there are any other questions, please contact the neurosurgery team. Job ID: [id number]
[2018-12-29] MEDS: Polyethylene Glycol 3350 17 GM Packet PO SCH ×2 (10:10→22:05)
[2018-12-29] MEDS: Bisacodyl 10 MG SUPP PR SCH (10:10)
[2018-12-29] MEDS: Morphine ER 30 MG TAB PO SCH ×2 (10:11→22:05)
[2018-12-29] MEDS: Senokot S 8.6-50 MG TAB PO SCH ×2 (10:11→22:08)
[2018-12-29] MEDS: Ondansetron ODT 4 MG TAB PO PRN ×2 (10:16→16:37)
--- NOTE | 2018-12-29 10:27 | PDOC.MOPN ---
Interval History: Patient better with MS Contin, norco. Still no BM - Vital Signs Vital Signs: Vital Signs (12 hours) Temp Pulse Resp BP Pulse Ox 12/29/18 07:53 99.2 F 116 H 20 106/62 91 L 12/29/18 06:43 92 L 12/29/18 04:00 99.2 F 112 H 18 121/68 91 L 12/28/18 23:41 98.8 F 116 H 18 110/62 93 L Weight Admit Weight 121 lb 1.6 oz Weight 122 lb 14.4 oz - Physical Exam General: Alert, Oriented x3, No acute distress HEENT: Atraumatic, PERRLA, EOMI, Mucous membr. moist/pink Lungs: Clear to auscultation, Normal air movement Cardiovascular: Regular rate, Normal S1, Normal S2, No murmurs, Gallops, Rubs Abdomen: Other Extremities: No clubbing, No cyanosis, No edema, Normal pulses, No tenderness/ swelling Skin: No rashes, No breakdown, No significant lesion Neurological: Normal speech Psych/Mental Status: Mental status NL - Labs Result Diagrams: 12/28/18 04:40 12/28/18 04:40 Status: lab reviewed by me A/P - Problem (1) Breast cancer metastasized to bone Current Visit: Yes Code(s): C50.919 - MALIGNANT NEOPLASM OF UNSP SITE OF UNSPECIFIED FEMALE BREAST; C79.51 - SECONDARY MALIGNANT NEOPLASM OF BONE Status: Acute (2) Bone metastases Current Visit: Yes Code(s): C79.51 - SECONDARY MALIGNANT NEOPLASM OF BONE Status: Acute (3) Hypercalcemia of malignancy Current Visit: Yes Code(s): E83.52 - HYPERCALCEMIA Status: Acute - Plan Plan: Miralax today, encourage compliance with bowel regimen Bone biopsy results pending [place], Morphine prn pain; continue MS Contin palliative XRT cont IVF for hypercalcemia - dramatically improved
[2018-12-29 12:21] LABS: Hemoglobin 8.1 g/dL (12.0-16.0); Mean Corpuscular HGB CONC 35.1 g/dL (32.0-36.0); Mean Corpuscular Hemoglobin 31.5 pg (27.0-31.0); Mean Corpuscular Volume 89.7 fL (78.0-98.0); Mean Platelet Volume 6.4 fL (7.4-10.4); Platelet Count 188 thou/uL (130-400); RBC Distribution Width 14.9 % (11.5-14.5); Red Blood Cell (RBC) Count 2.58 mill/uL (4.20-5.40); White Blood Cell (WBC) Count 19.6 thou/uL (4.8-10.8)
[2018-12-29 12:40] LABS: ALT (SGPT) 41 U/L (8-55); AST (SGOT) 77 U/L (5-34); Albumin 2.9 g/dL (3.4-4.8); Alkaline Phosphatase 204 U/L (40-150); Anion Gap 9 mmol/L (10-20); BUN (Urea Nitrogen) 19 mg/dL (9.8-20.1); Bilirubin, Total 0.6 mg/dL (0.2-1.2); Calc. Creatinine Clearance 51 mL/min (70-130); Calcium 8.3 mg/dL (7.8-10.44); Carbon Dioxide 24 mmol/L (23-31); Chloride 108 mmol/L (98-107); Estimated GFR-MDRD 56; Globulin 2.7 g/dL (2.4-3.5); Glucose 93 mg/dL (80-115); Potassium 3.3 mmol/L (3.5-5.1); Protein, Total 5.6 g/dL (6.0-8.3); Sodium 138 mmol/L (136-145)
--- NOTE | 2018-12-29 12:45 | PDOC.HOSPP ---
- Subjective Encounter Date: 12/29/18 Encounter Time: 12:00 Subjective: Patient seen and examined for gen weakness/hypercalcemia. No BM. No new complaints. No overnight events - Objective Vital Signs & Weight: Vital Signs (12 hours) Temp Pulse Resp BP Pulse Ox 12/29/18 08:00 92 L 12/29/18 07:53 99.2 F 116 H 20 106/62 91 L 12/29/18 06:43 92 L 12/29/18 04:00 99.2 F 112 H 18 121/68 91 L Weight Admit Weight 111 lb Weight 122 lb 14.4 oz I&O: 12/28/18 12/29/18 12/30/18 06:59 06:59 06:59 Intake Total 3909 5250 240 Output Total 1300 2350 Balance 2609 2900 240 Result Diagrams: 12/29/18 10:58 12/29/18 10:58 EKG Reviewed by me: Yes (Tele SR) Hospitalist ROS - Review of Systems Respiratory: denies: cough, dry, shortness of breath, hemoptysis, SOB with excertion, pleuritic pain, sputum, wheezing, other Cardiovascular: denies: chest pain, palpitations, orthopnea, paroxysmal noc. dyspnea, edema, light headedness, other - Medication Medications: Active Medications Generic Name Dose Route Start Last Admin Trade Name Freq PRN Reason Stop Dose Admin Hydrocodone Bitart/Acetaminophen 1 tab 12/26/18 16:19 12/29/18 05:54 [facility] 10/325 PO 1 tab Q4H PRN Administration Severe Pain (7-10) Bisacodyl 10 mg 12/27/18 09:00 12/29/18 10:10 Dulcolax OK Not Given DAILY REBEKAH Clonazepam 1 mg 12/26/18 21:00 12/28/18 21:42 Klonopin PO 1 mg Q24HR REBEKAH Administration Famotidine 20 mg 12/26/18 21:00 12/28/18 21:42 Pepcid PO 20 mg QPM REBEKAH Administration Potassium Chloride/Sodium Chloride 1,000 mls @ 75 mls/hr 12/28/18 06:30 12/29 00:33 1/2 Ns W/Kcl 20 Meq IV 1,000 mls .[id number] REBEKAH Administration Lactulose 10 gm 12/27/18 15:00 12/29/18 10:10 Lactulose PO Not Given TID REBEKAH Menthol/Methyl Salicylate 0 gm 12/28/18 18:36 12/29/18 00:27 Muscle Rub Cream (Bengay) TOP 85 gm QID PRN Administration Muscle Pain Morphine Sulfate 4 mg 12/26/18 17:50 12/28/18 14:23 Morphine SLOW IVP 4 mg Q4H PRN Administration Moderate to Severe Pain (6-10) Morphine Sulfate 30 mg 12/28/18 09:00 12/29/18 10:11 Ms Contin PO 30 mg Q12HR REBEKAH Administration Ondansetron HCl 4 mg 12/26/18 13:27 12/29/18 10:16 Zofran Odt PO 4 mg Q6H PRN Administration Nausea/Vomiting Ondansetron HCl 4 mg 12/26/18 13:27 12/28/18 14:23 Zofran IVP 4 mg Q6H PRN Administration Nausea/Vomiting Polyethylene Glycol 17 gm 12/26/18 21:00 12/29/18 10:10 Miralax PO 17 gm BID REBEKAH Administration Senna/Docusate Sodium 2 tab 12/26/18 21:00 12/29/18 10:11 Senokot S PO 2 tab BID REBEKAH Administration Simethicone 80 mg 12/28/18 20:41 12/29/18 05:54 Mylicon Chewable PO 80 mg PCHS PRN Administration Gas Pain - Exam General Appearance: NAD Neck: supple, no JVD Heart: RRR, no gallops Respiratory: CTAB, no rales Gastrointestinal: soft, non-tender, normal bowel sounds Extremities: no edema Psychiatric: normal affect, A&O x 3 Hosp A/P - Plan IMPRESSION: 1. Severe hypercalcemia suspected to be secondary to metastatic disease. s/p Zoledronic acid and Calcitonin 2. Dehydration with acute kidney injury on chronic kidney disease stage 3. 3. Acute Metabolic Encephalopathy - improved 4. Hypokalemia/Hyperphosphatemia. 5. Anemia, suspected chronic. 6. Leukocytosis unlikely to be infectious. 7. History of breast cancer in the past. 8. Sinus tachycardia secondary to dehydration. 9. Anxiety. 10. Constipation. 11. Chronic low back pain/ T11 Compression fracture PLAN: Cont 1/2 NS with KCL @ 75 ml/hr AM Labs Cont Lactulose/Sen-s and Miralax Brace for compression fracture pending Await Bone biopsy report pending labs
[2018-12-29 13:18] LABS: Anisocytosis SLIGHT = 6-15 cells (100X) (0-5/hpf); Band 7 % (5-11); Basophilic Stippling SLIGHT = 1-2 cells (100X) (None Seen); Lymphocytes 23 % (21-51); MDiff Complete? YES; Metamyelocyte 2 % (0-0); Monocytes 4 % (0-10); Myelocyte 2 % (0-0); Neutrophil 62 % (42-75); Nucleated RBC 3 % (0); Ovalocytes SLIGHT = 2-5 cells (100X) (0-1/hpf); Platelet Morphology Comment Appears Adequate; Polychromasia SLIGHT = 2-3 cells (100X) (0-2/hpf); Spherocytes SLIGHT = 1-5 cells (100X) (None Seen)
[2018-12-29] MEDS: Ondansetron PF 4 MG/2 ML Vial IVP PRN ×2 (14:41→22:13)
[2018-12-29] MEDS: Morphine 4 MG/ML VIAL SLOW IVP PRN ×2 (14:41→20:39)
[2018-12-29] MEDS: clonazePAM 1 MG TAB PO SCH (22:05)
[2018-12-29] MEDS: Acetaminophen 325 MG TAB PO PRN (22:07)
[2018-12-29] MEDS: Famotidine 20 MG TAB PO SCH (22:08)
[2018-12-30 04:55] LABS: Anion Gap 11 mmol/L (10-20); BUN (Urea Nitrogen) 17 mg/dL (9.8-20.1); Calc. Creatinine Clearance 64 mL/min (70-130); Calcium 8.1 mg/dL (7.8-10.44); Carbon Dioxide 21 mmol/L (23-31); Chloride 108 mmol/L (98-107); Estimated GFR-MDRD 72; Glucose 91 mg/dL (80-115); Potassium 3.2 mmol/L (3.5-5.1); Sodium 137 mmol/L (136-145)
[2018-12-30 04:56] LABS: Band 5 % (5-11); Hemoglobin 8.4 g/dL (12.0-16.0); Lymphocytes 16 % (21-51); MDiff Complete? YES; Mean Corpuscular HGB CONC 35.1 g/dL (32.0-36.0); Mean Corpuscular Hemoglobin 31.3 pg (27.0-31.0); Mean Corpuscular Volume 89.2 fL (78.0-98.0); Mean Platelet Volume 6.1 fL (7.4-10.4); Metamyelocyte 5 % (0-0); Monocytes 2 % (0-10); Neutrophil 72 % (42-75); Nucleated RBC 8 % (0); Platelet Count 164 thou/uL (130-400); Platelet Morphology Comment Appears Adequate; Red Blood Cell (RBC) Count 2.67 mill/uL (4.20-5.40); White Blood Cell (WBC) Count 19.6 thou/uL (4.8-10.8)
[2018-12-30] MEDS: Morphine ER 30 MG TAB PO SCH ×2 (09:34→20:42)
[2018-12-30] MEDS: 1/2 NS w/KCL 20 mEq 1,000 ML IV SCH ×3 (09:34→20:45)
[2018-12-30] MEDS: Ondansetron PF 4 MG/2 ML Vial IVP PRN ×2 (09:36→14:40)
[2018-12-30] MEDS: HYDROcodone/Acetaminophen 10/325 mg Tablet PO PRN ×3 (10:31→19:14)
[2018-12-30] MEDS ORDERED: Promethazine 25 MG TAB PO PRN (12:18)
[2018-12-30] MEDS ORDERED: Morphine 4 MG/ML VIAL SLOW IVP SCH (12:30)
--- NOTE | 2018-12-30 14:04 | RAD ---
ABDOMEN 2 VIEWS: Date: 12/30/18 HISTORY: Abdominal pain. No bowel movement for 2 weeks. FINDINGS/IMPRESSION: There are postop changes of cholecystectomy. No free air or differential fluid levels are seen. There is residual contrast in the colon. POS: TPC
--- NOTE | 2018-12-30 14:29 | PDOC.MOPN ---
Interval History: Pain controlled. Had XRT yesterday. Again later today. - Vital Signs Vital Signs: Vital Signs (12 hours) Temp Pulse Resp BP Pulse Ox 12/30/18 12:00 99.4 F 119 H 18 122/65 94 L 12/30/18 08:27 98.3 F 119 H 18 130/73 93 L 12/30/18 04:00 99.1 F 121 H 16 124/66 92 L Weight Admit Weight 111 lb Weight 122 lb 14.4 oz - Physical Exam General: Alert, Oriented x3, No acute distress HEENT: Atraumatic, PERRLA, EOMI, Mucous membr. moist/pink Lungs: Clear to auscultation, Normal air movement Cardiovascular: Regular rate, Normal S1, Normal S2, No murmurs, Gallops, Rubs Abdomen: No tenderness Extremities: No clubbing, No cyanosis, No edema, Normal pulses, No tenderness/ swelling Skin: No rashes, No breakdown, No significant lesion Neurological: Normal speech Psych/Mental Status: Mental status NL - Labs Result Diagrams: 12/30/18 04:19 12/30/18 04:19 Lab results: Laboratory Results - last 24 hr 12/30/18 04:19: WBC 19.6 H, RBC 2.67 L, Hgb 8.4 L, Hct 23.8 L, MCV 89.2, MCH 31.3 H, MCHC 35.1, RDW 15.0 H, Plt Count 164, MPV 6.1 L, Neutrophils % (Manual) 72, Band Neuts % (Manual) 5, Lymphocytes % (Manual) 16 L, Monocytes % (Manual) 2 , Metamyelocytes % (Man) 5 H, Nucleated RBCs # (Man) 8 H, Plt Morphology Comment Appears Adequate 12/30/18 04:19: Sodium 137, Potassium 3.2 L, Chloride 108 H, Carbon Dioxide 21 L , Anion Gap 11, BUN 17, Creatinine 0.81, Estimated GFR (MDRD) 72, Glucose 91, Calcium 8.1 Status: lab reviewed by me - Pathology Pathology: path pending A/P - Problem (1) Breast cancer metastasized to bone Current Visit: Yes Code(s): C50.919 - MALIGNANT NEOPLASM OF UNSP SITE OF UNSPECIFIED FEMALE BREAST; C79.51 - SECONDARY MALIGNANT NEOPLASM OF BONE Status: Acute (2) Bone metastases Current Visit: Yes Code(s): C79.51 - SECONDARY MALIGNANT NEOPLASM OF BONE Status: Acute (3) Hypercalcemia of malignancy Current Visit: Yes Code(s): E83.52 - HYPERCALCEMIA Status: Acute - Plan Plan: Continue pain medications continue XRT Mag citrate after radiation
[2018-12-30] MEDS: Morphine 4 MG/ML VIAL SLOW IVP PRN (14:39)
[2018-12-30] MEDS ORDERED: Magnesium Citrate 300 ML BOT PO SCH (16:00)
[2018-12-30] MEDS ORDERED: Mineral Oil ENEMA PR SCH (16:00)
[2018-12-30] MEDS: Polyethylene Glycol 3350 17 GM Packet PO SCH ×2 (16:08→20:49)
[2018-12-30] MEDS: Senokot S 8.6-50 MG TAB PO SCH ×2 (16:08→20:43)
[2018-12-30] MEDS: Bisacodyl 10 MG SUPP PR SCH (16:12)
--- NOTE | 2018-12-30 18:01 | PDOC.HOSPP ---
- Subjective Encounter Date: 12/30/18 Encounter Time: 18:45 Subjective: Patient seen and examined for hypercalcemia/bone mets. No new complaints. No overnight events - Objective Vital Signs & Weight: Vital Signs (12 hours) Temp Pulse Resp BP Pulse Ox 12/30/18 16:45 97.7 F 127 H 16 139/73 91 L 12/30/18 12:00 99.4 F 119 H 18 122/65 94 L 12/30/18 08:27 98.3 F 119 H 18 130/73 93 L Weight Admit Weight 111 lb Weight 122 lb 14.4 oz I&O: 12/29/18 12/30/18 12/31/18 06:59 06:59 06:59 Intake Total 5250 2020 Output Total 2350 250 375 Balance 2900 1770 -375 Result Diagrams: 12/30/18 04:19 12/31/18 03:59 Hospitalist ROS - Review of Systems Respiratory: denies: cough, dry, shortness of breath, hemoptysis, SOB with excertion, pleuritic pain, sputum, wheezing, other Cardiovascular: denies: chest pain, palpitations, orthopnea, paroxysmal noc. dyspnea, edema, light headedness, other Gastrointestinal: reports: constipation. denies: nausea, vomiting, abdominal pain, diarrhea, melena, hematochezia, other - Medication Medications: Active Medications Generic Name Dose Route Start Last Admin Trade Name Freq PRN Reason Stop Dose Admin Acetaminophen 650 mg 12/26/18 13:27 12/29/18 22:07 Tylenol PO 650 mg Q4H PRN Administration Headache/Fever/Mild Pain (1-3) Hydrocodone Bitart/Acetaminophen 1 tab 12/26/18 16:19 12/30/18 14:35 [place] 10/325 PO 1 tab Q4H PRN Administration Severe Pain (7-10) Bisacodyl 10 mg 12/27/18 09:00 12/30/18 16:12 Dulcolax [place] Not Given DAILY REBEKAH Clonazepam 1 mg 12/26/18 21:00 12/29/18 22:05 Klonopin PO 1 mg Q24HR REBEKAH Administration Famotidine 20 mg 12/26/18 21:00 12/29/18 22:08 Pepcid PO 20 mg QPM REBEKAH Administration Potassium Chloride/Sodium Chloride 1,000 mls @ 75 mls/hr 12/28/18 06:30 12/30 09:34 1/2 Ns W/Kcl 20 Meq IV 1,000 mls .[id number] REBEKAH Administration Lactulose 10 gm 12/27/18 15:00 12/30/18 16:30 Lactulose PO Not Given TID REBEKAH Menthol/Methyl Salicylate 0 gm 12/28/18 18:36 12/29/18 00:27 Muscle Rub Cream (Bengay) TOP 85 gm QID PRN Administration Muscle Pain Morphine Sulfate 4 mg 12/26/18 17:50 12/30/18 14:39 Morphine SLOW IVP 4 mg Q4H PRN Administration Moderate to Severe Pain (6-10) Morphine Sulfate 30 mg 12/28/18 09:00 12/30/18 09:34 Ms Contin PO 30 mg Q12HR REBEKAH Administration Ondansetron HCl 4 mg 12/26/18 13:27 12/29/18 16:37 Zofran Odt PO 4 mg Q6H PRN Administration Nausea/Vomiting Ondansetron HCl 4 mg 12/26/18 13:27 12/30/18 14:40 Zofran IVP 4 mg Q6H PRN Administration Nausea/Vomiting Polyethylene Glycol 17 gm 12/26/18 21:00 12/30/18 16:08 Miralax PO 17 gm BID REBEKAH Administration Potassium Chloride 20 meq 12/30/18 08:00 12/30/18 10:34 Klor-Con PO 20 meq BID-WM REBEKAH Administration Senna/Docusate Sodium 2 tab 12/26/18 21:00 12/30/18 16:08 Senokot S PO 2 tab BID REBEKAH Administration Simethicone 80 mg 12/28/18 20:41 12/29/18 05:54 Mylicon Chewable PO 80 mg PCHS PRN Administration Gas Pain - Exam General Appearance: NAD Heart: RRR, no rubs Respiratory: CTAB, no ronchi Gastrointestinal: soft, non-distended, normal bowel sounds Extremities: no edema Hosp A/P - Plan IMPRESSION: 1. Severe hypercalcemia suspected to be secondary to metastatic disease. s/p Zoledronic acid and Calcitonin 2. Dehydration with acute kidney injury on chronic kidney disease stage 3. 3. Acute Metabolic Encephalopathy - improved 4. Hypokalemia/Hyperphosphatemia. 5. Anemia, suspected chronic. 6. Leukocytosis unlikely to be infectious. 7. History of breast cancer in the past. 8. Sinus tachycardia secondary to dehydration. 9. Anxiety. 10. Constipation. 11. Chronic low back pain/ T11 Compression fracture PLAN: Cont IVF Bone biopsy report pending Pain control Enema Cont lactulose AM labs
[2018-12-30] MEDS: Famotidine 20 MG TAB PO SCH (20:42)
[2018-12-30] MEDS: clonazePAM 1 MG TAB PO SCH (22:30)
[2018-12-31] MEDS ORDERED: Aquaphor 10 GM TUBE TOP PRN (00:51)
[2018-12-31 04:25] LABS: Anion Gap 11 mmol/L (10-20); BUN (Urea Nitrogen) 12 mg/dL (9.8-20.1); Calc. Creatinine Clearance 73 mL/min (70-130); Calcium 8.3 mg/dL (7.8-10.44); Carbon Dioxide 22 mmol/L (23-31); Chloride 109 mmol/L (98-107); Estimated GFR-MDRD 84; Glucose 92 mg/dL (80-115); Potassium 3.7 mmol/L (3.5-5.1); Sodium 138 mmol/L (136-145)
[2018-12-31] MEDS: Morphine ER 30 MG TAB PO SCH ×2 (08:13→21:33)
[2018-12-31] MEDS: Morphine 4 MG/ML VIAL SLOW IVP PRN ×2 (08:14→15:59)
[2018-12-31] MEDS: Ondansetron PF 4 MG/2 ML Vial IVP PRN ×2 (08:14→15:59)
[2018-12-31] MEDS: Famotidine 20 MG TAB PO SCH ×2 (08:18→21:33)
[2018-12-31] MEDS: Senokot S 8.6-50 MG TAB PO SCH ×2 (09:00→21:33)
[2018-12-31] MEDS: Bisacodyl 10 MG SUPP PR SCH (09:00)
[2018-12-31] MEDS: 1/2 NS w/KCL 20 mEq 1,000 ML IV SCH ×2 (10:06→18:09)
--- NOTE | 2018-12-31 11:21 | PDOC.HOSPP ---
- Subjective Encounter Date: 12/31/18 Encounter Time: 10:45 Subjective: Patient seen and examined for Hypercalcemia. No CP or SOB. Had BM. No new complaints. No overnight events - Objective Vital Signs & Weight: Vital Signs (12 hours) Temp Pulse Resp BP Pulse Ox 12/31/18 08:47 98.9 F 121 H 18 126/71 91 L 12/30/18 23:48 99.2 F 117 H 16 110/67 94 L Weight Admit Weight 111 lb Weight 122 lb 14.4 oz I&O: 12/30/18 12/31/18 01/01/19 06:59 06:59 06:59 Intake Total 2019 114 Output Total 250 2375 Balance 1770 -1235 Result Diagrams: 12/30/18 04:19 12/31/18 03:59 Hospitalist ROS - Review of Systems Respiratory: denies: cough, dry, shortness of breath, hemoptysis, SOB with excertion, pleuritic pain, sputum, wheezing, other Cardiovascular: denies: chest pain, palpitations, orthopnea, paroxysmal noc. dyspnea, edema, light headedness, other - Medication Medications: Active Medications Generic Name Dose Route Start Last Admin Trade Name Freq PRN Reason Stop Dose Admin Acetaminophen 650 mg 12/26/18 13:27 12/29/18 22:07 Tylenol PO 650 mg Q4H PRN Administration Headache/Fever/Mild Pain (1-3) Hydrocodone Bitart/Acetaminophen 1 tab 12/26/18 16:19 12/30/18 19:14 [place] 10/325 PO 1 tab Q4H PRN Administration Severe Pain (7-10) Bisacodyl 10 mg 12/27/18 09:00 12/30/18 16:12 Dulcolax MD Not Given DAILY REBEKAH Clonazepam 1 mg 12/26/18 21:00 12/30/18 22:30 Klonopin PO 1 mg Q24HR REBEKAH Administration Famotidine 20 mg 12/31/18 09:00 12/31/18 08:18 Pepcid PO 20 mg BID REBEKAH Administration Menthol/Methyl Salicylate 0 gm 12/28/18 18:36 12/29/18 00:27 Muscle Rub Cream (Bengay) TOP 85 gm QID PRN Administration Muscle Pain Morphine Sulfate 4 mg 12/26/18 17:50 12/31/18 08:14 Morphine SLOW IVP 4 mg Q4H PRN Administration Moderate to Severe Pain (6-10) Morphine Sulfate 30 mg 12/28/18 09:00 12/31/18 08:13 Ms Contin PO 30 mg Q12HR REBEKAH Administration Ondansetron HCl 4 mg 12/26/18 13:27 12/29/18 16:37 Zofran Odt PO 4 mg Q6H PRN Administration Nausea/Vomiting Ondansetron HCl 4 mg 12/26/18 13:27 12/31/18 08:14 Zofran IVP 4 mg Q6H PRN Administration Nausea/Vomiting Senna/Docusate Sodium 2 tab 12/26/18 21:00 12/30/18 20:43 Senokot S PO 2 tab BID REBEKAH Administration Simethicone 80 mg 12/28/18 20:41 12/29/18 05:54 Mylicon Chewable PO 80 mg PCHS PRN Administration Gas Pain - Exam General Appearance: NAD Heart: RRR, no gallops, no rubs Heart - other findings: tachycardic Respiratory: CTAB, no rales Gastrointestinal: soft, non-tender, normal bowel sounds Extremities: no cyanosis, no edema Hosp A/P - Plan DVT proph w/lovenox, DVT proph w/SCDs IMPRESSION: 1. Severe hypercalcemia suspected to be secondary to metastatic disease. s/p Zoledronic acid and Calcitonin 2. Dehydration with acute kidney injury on chronic kidney disease stage 3. 3. Tachycardia 4. Hypokalemia/Hyperphosphatemia. 5. Anemia, suspected chronic. 6. Leukocytosis unlikely to be infectious. 7. History of breast cancer in the past. 8. Sinus tachycardia secondary to dehydration. 9. Anxiety. 10. Constipation. 11. Chronic low back pain/ T11 Compression fracture 12. Acute Metabolic Encephalopathy - improved PLAN: Cont IVF - reduce rate to 50 ml/hr Await Bone biopsy report EKG due to tachycardia DC lactulose
[2018-12-31] MEDS ORDERED: Polyethylene Glycol 3350 17 GM Packet PO SCH (12:15)
--- NOTE | 2018-12-31 12:19 | PDOC.MOPN ---
Interval History: Having bowel movements. pain controlled - Vital Signs Vital Signs: Vital Signs (12 hours) Temp Pulse Resp BP Pulse Ox 12/31/18 08:47 98.9 F 121 H 18 126/71 91 L Weight Admit Weight 111 lb Weight 122 lb 14.4 oz - Physical Exam General: Alert, Oriented x3, No acute distress HEENT: Atraumatic, PERRLA, EOMI, Mucous membr. moist/pink Lungs: Clear to auscultation, Normal air movement Cardiovascular: Regular rate, Normal S1, Normal S2, No murmurs, Gallops, Rubs Abdomen: Normal bowel sounds, Soft, No tenderness, No hepatospenomegaly, No masses Extremities: No clubbing, No cyanosis, No edema, Normal pulses, No tenderness/ swelling Skin: No rashes, No breakdown, No significant lesion Neurological: Normal speech Psych/Mental Status: Mental status NL - Labs Result Diagrams: 12/30/18 04:19 12/31/18 03:59 Lab results: Laboratory Results - last 24 hr 12/31/18 03:59: Sodium 138, Potassium 3.7, Chloride 109 H, Carbon Dioxide 22 L, Anion Gap 11, BUN 12, Creatinine 0.71, Estimated GFR (MDRD) 84, Glucose 92, Calcium 8.3 Status: lab reviewed by me A/P - Problem (1) Breast cancer metastasized to bone Current Visit: Yes Code(s): C50.919 - MALIGNANT NEOPLASM OF UNSP SITE OF UNSPECIFIED FEMALE BREAST; C79.51 - SECONDARY MALIGNANT NEOPLASM OF BONE Status: Acute (2) Bone metastases Current Visit: Yes Code(s): C79.51 - SECONDARY MALIGNANT NEOPLASM OF BONE Status: Acute (3) Hypercalcemia of malignancy Current Visit: Yes Code(s): E83.52 - HYPERCALCEMIA Status: Acute - Plan Plan: Continue XRT to spine pain control supportive care
--- NOTE | 2018-12-31 13:28 | EKG ---
Test Reason : Blood Pressure : / mmHG Vent. Rate : 105 BPM Atrial Rate : 105 BPM P-R Int : 172 ms QRS Dur : 084 ms QT Int : 328 ms P-R-T Axes : 047 050 026 degrees QTc Int : 433 ms Sinus tachycardia Otherwise normal ECG Confirmed by ZENOBIA COATES, BECKI ([id number]), editor in chief newspaper VEDA DUONG ([id number]) on 12/31/2018 1:28:02 PM Referred By: Confirmed By:BECKI FREGOSO MD
[2018-12-31] MEDS: Polyethylene Glycol 3350 17 GM Packet PO SCH (18:11)
[2018-12-31] MEDS ORDERED: Docusate 100 MG CAP PO SCH (21:00)
[2018-12-31] MEDS: HYDROcodone/Acetaminophen 10/325 mg Tablet PO PRN (21:13)
[2018-12-31] MEDS: Enoxaparin Sodium 30 MG/0.3 ML SYRINGE SC SCH (21:33)
[2018-12-31] MEDS: clonazePAM 1 MG TAB PO SCH (23:31)
[2019-01-01] MEDS: HYDROcodone/Acetaminophen 10/325 mg Tablet PO PRN ×4 (01:29→20:55)
[2019-01-01] MEDS: 1/2 NS w/KCL 20 mEq 1,000 ML IV SCH (05:25)
[2019-01-01] MEDS: Morphine ER 30 MG TAB PO SCH ×2 (10:03→20:47)
[2019-01-01] MEDS: Senokot S 8.6-50 MG TAB PO SCH ×2 (10:03→20:47)
[2019-01-01] MEDS: Polyethylene Glycol 3350 17 GM Packet PO SCH (10:03)
[2019-01-01] MEDS: Famotidine 20 MG TAB PO SCH ×2 (10:06→20:47)
--- NOTE | 2019-01-01 12:15 | PDOC.HOSPP ---
- Subjective Encounter Date: 01/01/19 Encounter Time: 11:00 Subjective: Patient seen and examined for gen weakness. Feels better. Having BMs. Back pain +. No other complaints. No overnight events - Objective Vital Signs & Weight: Vital Signs (12 hours) Temp Pulse Resp BP Pulse Ox 01/01/19 07:55 98.3 F 121 H 20 120/61 94 L 01/01/19 03:43 97.6 F 111 H 16 106/66 96 Weight Admit Weight 111 lb Weight 122 lb 14.4 oz I&O: 12/31/18 01/01/19 01/02/19 06:59 06:59 06:59 Intake Total 1140 480 Output Total 8848 7000 Balance -1235 -1220 Result Diagrams: 12/30/18 04:19 12/31/18 03:59 Hospitalist ROS - Review of Systems Respiratory: denies: cough, dry, shortness of breath, hemoptysis, SOB with excertion, pleuritic pain, sputum, wheezing, other Cardiovascular: denies: chest pain, palpitations, orthopnea, paroxysmal noc. dyspnea, edema, light headedness, other Gastrointestinal: denies: nausea, vomiting, abdominal pain, diarrhea, constipation, melena, hematochezia, other - Medication Medications: Active Medications Generic Name Dose Route Start Last Admin Trade Name Freq PRN Reason Stop Dose Admin Acetaminophen 650 mg 12/26/18 13:27 12/29/18 22:07 Tylenol PO 650 mg Q4H PRN Administration Headache/Fever/Mild Pain (1-3) Hydrocodone Bitart/Acetaminophen 1 tab 12/26/18 16:19 01/01/19 05:25 [place] 10/325 PO 1 tab Q4H PRN Administration Severe Pain (7-10) Bisacodyl 10 mg 12/27/18 09:00 12/31/18 09:00 Dulcolax MD Not Given DAILY REBEKAH Clonazepam 1 mg 12/26/18 21:00 12/31/18 23:31 Klonopin PO 1 mg Q24HR REBEKAH Administration Enoxaparin Sodium 30 mg 12/31/18 21:00 12/31/18 21:33 Lovenox SC 30 mg 2100 REBEKAH Administration Famotidine 20 mg 12/31/18 09:00 01/01/19 10:06 Pepcid PO 20 mg BID REBEKAH Administration Potassium Chloride/Sodium Chloride 1,000 mls @ 50 mls/hr 12/31/18 10:55 01/01 05:25 1/2 Ns W/Kcl 20 Meq IV 1,000 mls .Q20H REBEKAH Administration Menthol/Methyl Salicylate 0 gm 12/28/18 18:36 12/29/18 00:27 Muscle Rub Cream (Bengay) TOP 85 gm QID PRN Administration Muscle Pain Morphine Sulfate 4 mg 12/26/18 17:50 12/31/18 15:59 Morphine SLOW IVP 4 mg Q4H PRN Administration Moderate to Severe Pain (6-10) Morphine Sulfate 30 mg 12/28/18 09:00 01/01/19 10:03 Ms Contin PO 30 mg Q12HR REBEKAH Administration Ondansetron HCl 4 mg 12/26/18 13:27 12/29/18 16:37 Zofran Odt PO 4 mg Q6H PRN Administration Nausea/Vomiting Ondansetron HCl 4 mg 12/26/18 13:27 12/31/18 15:59 Zofran IVP 4 mg Q6H PRN Administration Nausea/Vomiting Polyethylene Glycol 17 gm 12/26/18 13:29 12/31/18 21:33 Miralax PO 17 gm DAILY PRN Administration Constipation Polyethylene Glycol 17 gm 01/01/19 09:00 01/01/19 10:03 Miralax PO 17 gm DAILY REBEKAH Administration Senna/Docusate Sodium 2 tab 12/26/18 21:00 01/01/19 10:03 Senokot S PO 2 tab BID REBEKAH Administration Simethicone 80 mg 12/28/18 20:41 12/29/18 05:54 Mylicon Chewable PO 80 mg PCHS PRN Administration Gas Pain - Exam General Appearance: NAD Neck: supple, no JVD Heart: RRR (tachycardic), no gallops Respiratory: CTAB, no rales Gastrointestinal: soft, non-distended, normal bowel sounds Extremities: no edema Neurological: no new deficit Hosp A/P - Plan DVT proph w/lovenox, DVT proph w/SCDs IMPRESSION: 1. Severe hypercalcemia suspected to be secondary to metastatic disease. s/p Zoledronic acid and Calcitonin 2. Dehydration with acute kidney injury on chronic kidney disease stage 3. 3. Sinus tachycardia - prob due to pain 4. Hypokalemia/Hyperphosphatemia. 5. Anemia, suspected chronic. 6. Leukocytosis unlikely to be infectious. 7. History of breast cancer in the past. 8. Sinus tachycardia secondary to dehydration. 9. Anxiety. 10. Constipation. 11. Chronic low back pain/ T11 Compression fracture 12. Acute Metabolic Encephalopathy - improved PLAN: Cont IVF @ 50 ml/hr Await Bone biopsy report Cont current pain meds Echo pending AM labs
[2019-01-01] MEDS: Bisacodyl 10 MG SUPP PR SCH (17:31)
[2019-01-01] MEDS: Enoxaparin Sodium 30 MG/0.3 ML SYRINGE SC SCH (20:47)
[2019-01-01] MEDS: clonazePAM 1 MG TAB PO SCH (20:48)
[2019-01-02] MEDS: 1/2 NS w/KCL 20 mEq 1,000 ML IV SCH (00:49)
[2019-01-02] MEDS: HYDROcodone/Acetaminophen 10/325 mg Tablet PO PRN ×4 (00:49→20:16)
[2019-01-02 05:57] LABS: ALT (SGPT) 40 U/L (8-55); AST (SGOT) 88 U/L (5-34); Albumin 2.6 g/dL (3.4-4.8); Alkaline Phosphatase 185 U/L (40-150); Anion Gap 9 mmol/L (10-20); BUN (Urea Nitrogen) 9 mg/dL (9.8-20.1); Bilirubin, Total 0.6 mg/dL (0.2-1.2); Calc. Creatinine Clearance 79 mL/min (70-130); Calcium 8.5 mg/dL (7.8-10.44); Carbon Dioxide 27 mmol/L (23-31); Chloride 107 mmol/L (98-107); Estimated GFR-MDRD Greater than 90; Globulin 2.8 g/dL (2.4-3.5); Glucose 88 mg/dL (80-115); Magnesium 1.7 mg/dL (1.6-2.6); Phosphorus 2.2 mg/dL (2.3-4.7); Potassium 3.7 mmol/L (3.5-5.1); Protein, Total 5.4 g/dL (6.0-8.3); Sodium 139 mmol/L (136-145)
[2019-01-02 06:04] LABS: Band 2 % (5-11); Eosinophils 3 % (0-10); Hemoglobin 8.4 g/dL (12.0-16.0); Hypochromia SLIGHT = 6-15 cells (100X) (0-5/hpf); Lymphocytes 16 % (21-51); MDiff Complete? YES; Mean Corpuscular HGB CONC 34.8 g/dL (32.0-36.0); Mean Corpuscular Hemoglobin 31.2 pg (27.0-31.0); Mean Corpuscular Volume 89.7 fL (78.0-98.0); Mean Platelet Volume 7.1 fL (7.4-10.4); Monocytes 5 % (0-10); Neutrophil 74 % (42-75); Nucleated RBC 5 % (0); Platelet Count 132 thou/uL (130-400); Platelet Morphology Comment Appears Adequate; RBC Distribution Width 15.7 % (11.5-14.5); Red Blood Cell (RBC) Count 2.68 mill/uL (4.20-5.40); White Blood Cell (WBC) Count 15.5 thou/uL (4.8-10.8)
[2019-01-02] MEDS: Morphine ER 30 MG TAB PO SCH ×2 (09:24→20:12)
[2019-01-02] MEDS ORDERED: Magnesium 2 GM/50 ML 2 GM in Premix Bag 1 BAG IVPB SCH (09:30)
[2019-01-02] MEDS: Morphine 4 MG/ML VIAL SLOW IVP PRN (12:33)
[2019-01-02] MEDS: Ondansetron PF 4 MG/2 ML Vial IVP PRN (12:34)
--- NOTE | 2019-01-02 13:38 | NM ---
EXAM: Nuclear medicine VQ scan COMPARISON: Chest x-ray 01/02/2019 HISTORY: Shortness of breath TECHNIQUE: A VQ scan was performed in standard fashion. Ventilation images were obtained using 4.8 mC i of xenon-[id number]. Perfusion images were obtained using 6.4 mCi of technetium 99m MAA. FINDINGS: Ventilation: Breath hold, equilibrium, and washout phases are unremarkable. No ventilatory defects ar e seen. No air trapping is seen. Perfusion: No small, medium, or large perfusion defects are seen. IMPRESSION: Normal VQ scan
--- NOTE | 2019-01-02 14:29 | RAD ---
CHEST TWO VIEWS: HISTORY: Persistent tachycardia. Abdominal pain. COMPARISON: Chest, abdomen and pelvis CT from 12/08/2018. FINDINGS: Bilateral vascular congestion and moderate bilateral pleural effusions developing since the prior CT. Heart size within normal limits in size. No confluent lobar pneumonia. IMPRESSION: 1. Developing vascular congestion and moderate bilateral pleural effusions with possible mild edema. 2. No new confluent lobar pneumonia. 3. Evidence for bone metastasis. Continued short-term followup for clearing or stability. POS: OFF
[2019-01-02] MEDS ORDERED: Morphine 4 MG/ML VIAL SLOW IVP SCH (14:30)
[2019-01-02] MEDS: Famotidine 20 MG TAB PO SCH ×2 (14:40→20:12)
[2019-01-02] MEDS: K-Phos Neutral 250 MG TAB PO SCH ×4 (14:40→23:59)
--- NOTE | 2019-01-02 14:49 | PDOC.MOPN ---
Interval History: Pain controlled with meds path confirms breast cancer continue XRT to spine workup in progress for elevated HR. - Vital Signs Vital Signs: Vital Signs (12 hours) Temp Pulse Resp BP Pulse Ox 01/02/19 08:03 98.3 F 118 H 18 120/68 97 Weight Admit Weight 111 lb Weight 122 lb 14.4 oz - Labs Result Diagrams: 01/02/19 05:17 01/02/19 05:17 Lab results: Laboratory Results - last 24 hr 01/02/19 05:17: WBC 15.5 H, RBC 2.68 L, Hgb 8.4 L, Hct 24.0 L, MCV 89.7, MCH 31.2 H, MCHC 34.8, RDW 15.7 H, Plt Count 132, MPV 7.1 L, Neutrophils % (Manual) 74, Band Neuts % (Manual) 2 L, Lymphocytes % (Manual) 16 L, Monocytes % (Manual ) 5, Eosinophils % (Manual) 3, Nucleated RBCs # (Man) 5 H, Hypochromia SLIGHT = 6-15 cells, Plt Morphology Comment Appears Adequate 01/02/19 05:17: Sodium 139, Potassium 3.7, Chloride 107, Carbon Dioxide 27, Anion Gap 9 L, BUN 9 L, Creatinine 0.66, Estimated GFR (MDRD) Greater than 90, Glucose 88, Calcium 8.5, Phosphorus 2.2 L, Magnesium 1.7, Total Bilirubin 0.6, AST 88 H, ALT 40, Alkaline Phosphatase 185 H, Serum Total Protein 5.4 L, Albumin 2.6 L, Globulin 2.8, Albumin/Globulin Ratio 0.9 L A/P - Problem (1) Breast cancer metastasized to bone Current Visit: Yes Code(s): C50.919 - MALIGNANT NEOPLASM OF UNSP SITE OF UNSPECIFIED FEMALE BREAST; C79.51 - SECONDARY MALIGNANT NEOPLASM OF BONE Status: Acute (2) Bone metastases Current Visit: Yes Code(s): C79.51 - SECONDARY MALIGNANT NEOPLASM OF BONE Status: Acute (3) Hypercalcemia of malignancy Current Visit: Yes Code(s): E83.52 - HYPERCALCEMIA Status: Acute
[2019-01-02] MEDS: Polyethylene Glycol 3350 17 GM Packet PO SCH (17:12)
[2019-01-02] MEDS: Senokot S 8.6-50 MG TAB PO SCH ×2 (17:14→20:12)
[2019-01-02] MEDS: Bisacodyl 10 MG SUPP PR SCH (17:20)
--- NOTE | 2019-01-02 17:31 | PDOC.HOSPP ---
- Subjective Encounter Date: 01/02/19 Encounter Time: 08:00 Subjective: Patient seen and examined for gen weakness/hypercalcemia. No CP or SOB. On O2 NC. No new complaints. No overnight events - Objective Vital Signs & Weight: Vital Signs (12 hours) Temp Pulse Resp BP Pulse Ox 01/02/19 08:03 98.3 F 118 H 18 120/68 97 Weight Admit Weight 111 lb Weight 122 lb 14.4 oz I&O: 01/01/19 01/02/19 01/03/19 06:59 06:59 06:59 Intake Total 480 480 Output Total 1700 6365 Balance -1220 -995 Result Diagrams: 01/02/19 05:17 01/02/19 05:17 Radiology Reviewed by me: Yes (CXR - pulm vas congestion) Hospitalist ROS - Review of Systems Respiratory: denies: cough, dry, shortness of breath, hemoptysis, SOB with excertion, pleuritic pain, sputum, wheezing, other Cardiovascular: denies: chest pain, palpitations, orthopnea, paroxysmal noc. dyspnea, edema, light headedness, other - Medication Medications: Active Medications Generic Name Dose Route Start Last Admin Trade Name Freq PRN Reason Stop Dose Admin Acetaminophen 650 mg 12/26/18 13:27 12/29/18 22:07 Tylenol PO 650 mg Q4H PRN Administration Headache/Fever/Mild Pain (1-3) Hydrocodone Bitart/Acetaminophen 1 tab 12/26/18 16:19 01/02/19 06:02 [place] 10/325 PO 1 tab Q4H PRN Administration Severe Pain (7-10) Alprazolam 0.25 mg 12/26/18 14:04 01/02/19 12:29 Xanax PO 0.25 mg BIDPRN PRN Administration Anxiety Bisacodyl 10 mg 12/27/18 09:00 01/02/19 17:20 Dulcolax DE Not Given DAILY REBEKAH Clonazepam 1 mg 12/26/18 21:00 01/01/19 20:48 Klonopin PO 1 mg Q24HR REBEKAH Administration Enoxaparin Sodium 30 mg 12/31/18 21:00 01/01/19 20:47 Lovenox SC 30 mg 2100 REBEKAH Administration Famotidine 20 mg 12/31/18 09:00 01/02/19 14:40 Pepcid PO 20 mg BID REBEKAH Administration Menthol/Methyl Salicylate 0 gm 12/28/18 18:36 12/29/18 00:27 Muscle Rub Cream (Bengay) TOP 85 gm QID PRN Administration Muscle Pain Morphine Sulfate 4 mg 12/26/18 17:50 01/02/19 12:33 Morphine SLOW IVP 4 mg Q4H PRN Administration Moderate to Severe Pain (6-10) Morphine Sulfate 30 mg 12/28/18 09:00 01/02/19 09:24 Ms Contin PO 30 mg Q12HR REBEKAH Administration Ondansetron HCl 4 mg 12/26/18 13:27 12/29/18 16:37 Zofran Odt PO 4 mg Q6H PRN Administration Nausea/Vomiting Ondansetron HCl 4 mg 12/26/18 13:27 01/02/19 12:34 Zofran IVP 4 mg Q6H PRN Administration Nausea/Vomiting Phosphorus 250 mg 01/02/19 08:00 01/02/19 14:40 Kphos Neutral PO 250 mg TID-WM REBEKAH Administration Polyethylene Glycol 17 gm 12/26/18 13:29 12/31/18 21:33 Miralax PO 17 gm DAILY PRN Administration Constipation Polyethylene Glycol 17 gm 01/01/19 09:00 01/02/19 17:12 Miralax PO 17 gm DAILY REBEKAH Administration Senna/Docusate Sodium 2 tab 12/26/18 21:00 01/02/19 17:14 Senokot S PO 2 tab BID REBEKAH Administration Simethicone 80 mg 12/28/18 20:41 12/29/18 05:54 Mylicon Chewable PO 80 mg PCHS PRN Administration Gas Pain - Exam General Appearance: NAD Neck: supple, no JVD Heart: RRR (tachycardic), no rubs Respiratory: CTAB, no rales Respiratory - other findings: dec AE at bases Gastrointestinal: soft, non-tender, normal bowel sounds Extremities: no edema Neurological: no new deficit Hosp A/P - Plan plan discussed w/ family, PT/OT, DVT proph w/lovenox IMPRESSION: 1. Severe hypercalcemia suspected to be secondary to metastatic disease. s/p Zoledronic acid and Calcitonin 2. Dehydration with acute kidney injury on chronic kidney disease stage 3. 3. Sinus tachycardia - prob due to pain 4. Acute hypoxic resp failure 5. Breast CA with mets 6. Hypokalemia/Hyperphosphatemia. 7. Anemia, suspected chronic. 8. Sinus tachycardia secondary to dehydration. 9. Anxiety. 10. Constipation. 11. Chronic low back pain/ T11 Compression fracture 12. Acute Metabolic Encephalopathy - improved 13. 14. Leukocytosis unlikely to be infectious. PLAN: DC IVF Replace Phosphorus Add IS Wean O@ V/Q scan to r/o PE Bone biopsy report reviewed Cont current pain meds
[2019-01-02] MEDS: clonazePAM 1 MG TAB PO SCH (20:14)
[2019-01-02] MEDS: Enoxaparin Sodium 30 MG/0.3 ML SYRINGE SC SCH (20:15)
[2019-01-03] MEDS: HYDROcodone/Acetaminophen 10/325 mg Tablet PO PRN ×4 (00:13→20:44)
[2019-01-03] MEDS ORDERED: CEFAZOLIN 2 GM in Premix Bag 1 BAG IVPB SCH (07:15)
--- NOTE | 2019-01-03 08:15 | CON ---
DATE OF CONSULTATION: HISTORY OF PRESENT ILLNESS: A 63-year-old female lives in [place], had lobular carcinoma left breast, diagnosed in 2005, undergone partial mastectomy in April 23, 2006, along with sentinel node biopsy for a T1 N0 M0 left breast lobular carcinoma. She underwent chemo and radiation therapy. She had negative margins, ER receptor positive 10%, progesterone receptor positive 34%, HER-2 zero, Ki-67 low 0%, P53 negative. The patient saw Dr. Moura on a regular basis until being determined cancer-free in 2010, at which time, she was released. She then reported in the last few weeks in [place] for back pain, treated initially as the UTI thinking that she had urolithiasis. There was no improvement in her back pain. She reported back to the emergency room and CAT scan of the abdomen and pelvis revealed compression fracture and metastatic findings, and she was referred. She has had an MRI scan of her T-spine on 12/23 revealing extensive ostium involvement of thoracic, upper lumbar vertebrae, pathologic fractures, T7, T9, T10, and mild central canal stenosis. Lumbar MRI on 12/23/2018, noting diffuse metastasis, thoracic, lumbar, sacral vertebrae, mild retropulsion T10 and T11. Bone scan on 12/15/2018, revealed widespread osseous metastases in spine and pelvis, ribs, proximal femur. CAT scan of the abdomen and pelvis on 12/08/2018, revealing diffuse osseous metastases. Since been started on outpatient oral morphine, she has had problems with abdominal distention and constipation. Neurosurgery has seen her. Bonnie Oviedo PA-C recommended clamshell brace. I recommend proceeding with chemo and radiation therapy. Oncology has seen her and asked me to place a MediPort. She has difficult IV access. She had a colonoscopy 3 to 4 years ago, she reports is normal. ALLERGIES: NONE. SOCIAL HISTORY: Tobacco, none. Alcohol, none. MEDICATIONS: Outpatient, 1. Clonazepam. 2. Morphine ER. 3. MS Contin. 4. Hydrocodone 10/325. PAST SURGICAL HISTORY: Hysterectomy, cholecystectomy, left breast cancer, wide local excision, sentinel node biopsy, chemo and radiation therapy. REVIEW OF SYSTEMS: Noncontributory. PHYSICAL EXAMINATION: VITAL SIGNS: Height 5 foot, 422 pounds, 21 BMI, 98 degrees, pulse 118, and blood pressure 114/58. HEAD, EARS, EYES, NOSE, AND THROAT: Unremarkable. LUNGS: Clear to auscultation. CARDIAC: Regular rate and rhythm. No murmur or gallop. ABDOMEN: Soft, slightly tympanitic, distended. EXTREMITIES: Unremarkable. ASSESSMENT: Metastatic breast cancer. PLAN: We will plan placement of a MediPort. We will determine whether this could be done today or tomorrow. If she has IV access problems in the interim, central line can be placed and nurse can call me for that. Job ID: [id number]
[2019-01-03] MEDS: K-Phos Neutral 250 MG TAB PO SCH ×3 (08:25→18:15)
[2019-01-03] MEDS ORDERED: Midazolam HCl 2 mg/2 ml Vial ONE ×2 (08:49→09:07)
[2019-01-03] MEDS ORDERED: Fentanyl 100 MCG/2 ML VIAL ONE (09:07)
[2019-01-03] MEDS ORDERED: Propofol 500 MG/50 ML VIAL ONE (09:18)
[2019-01-03] MEDS ORDERED: Bupivacaine HCl 0.5%/Epinephrine 1:200,000/PF 30 ml Vial ONE (09:22)
[2019-01-03] MEDS ORDERED: Heparin 5,000 UNITS/ML VIAL ONE (09:22)
[2019-01-03] MEDS ORDERED: Lidocaine 2% PF 5 ML VIAL ONE (09:22)
[2019-01-03] MEDS: Famotidine 20 MG TAB PO SCH ×2 (09:38→20:44)
[2019-01-03] MEDS ORDERED: Promethazine HCl 25 MG/ML VIAL SLOW IVP PRN (10:26)
[2019-01-03] MEDS ORDERED: Ondansetron HCl/PF 4 MG/2 ML Vial IVP PRN (10:26)
[2019-01-03] MEDS ORDERED: Promethazine HCl 25 MG/ML VIAL IM PRN (10:26)
--- NOTE | 2019-01-03 11:00 | RAD ---
CHEST ONE VIEW: HISTORY: Mediport placement. Persistent tachycardia. COMPARISON: 01/02/2019 FINDINGS: Bilateral pleural effusions and vascular congestion, probably slightly improved from prior study. Rig ht-sided central line placement and injection port. Evidence for some right-sided rib fractures, age indeterminate. No pneumothorax. IMPRESSION: 1. Bilateral pleural effusions. 2. Bilateral vascular congestion, possibly slightly improved. 3. Right central line placement without pneumothorax. 4. Evidence for some right lateral rib fractures, age indeterminate. 5. No pneumothorax. POS: OFF
--- NOTE | 2019-01-03 11:29 | OP ---
DATE OF PROCEDURE: 01/03/2019 PREOPERATIVE DIAGNOSIS: Metastatic breast cancer, poor intravenous access, and need of chemotherapy access. ANESTHESIA: TIVA, local 0.5% Marcaine with epinephrine 30 mL mixed with 2% Xylocaine 10 mL. PROCEDURE PERFORMED: Right subclavian vein low-profile power MediPort fluoroscopy used. DESCRIPTION OF PROCEDURE: The patient was taken to the operating room, where under intravenous sedation, neck and chest prepared with ChloraPrep, draped in routine fashion. Local anesthetic was infiltrated in the skin and subcutaneous tissue about the operative site. Right subclavian vein cannulated with a trocar catheter and introducing a J-wire, removing the trocar catheter, enlarging the skin site sharply, creating a subcutaneous pocket to accommodate the MediPort. Dilator and peel-away sheath placed with J-wire in the superior vena cava, and dilator and J-wire were removed. Catheter placed through the peel-away sheath. Peel-away sheath removed. Fluoroscopically, the catheter tip was placed in the superior vena cava and tailored to length, connected to the MediPort, placed in subcutaneous pocket and secured with 2 interrupted suture of 3-0 Prolene. Subcutaneous tissue was approximated with 3-0 Monocryl, skin with subdermal 4-0 Monocryl, and Ladd glue applied. MediPort accessed with a Em needle, aspirated blood, flushed with heparinized saline solution. Fluoroscopic images revealed good line placement. Job ID: [id number]
--- NOTE | 2019-01-03 11:38 | PDOC.HOSPP ---
- Subjective Encounter Date: 01/03/19 Encounter Time: 10:00 Subjective: no sob or pain had mediport placed this am back pain is better - Objective Vital Signs & Weight: Vital Signs (12 hours) Temp Pulse Resp BP Pulse Ox 01/03/19 11:26 99.0 F 123 H 18 123/60 92 L 01/03/19 04:13 98.0 F 118 H 16 114/58 L 93 L 01/03/19 00:29 97.7 F 117 H 16 153/64 H 92 L Weight Admit Weight 111 lb Weight 122 lb 14.4 oz I&O: 01/02/19 01/03/19 01/04/19 06:59 06:59 06:59 Intake Total 480 480 Output Total 1475 900 Balance -935 420 Result Diagrams: 01/02/19 05:17 01/02/19 05:17 Hospitalist ROS - Medication Medications: Active Medications Generic Name Dose Route Start Last Admin Trade Name Freq PRN Reason Stop Dose Admin Acetaminophen 650 mg 12/26/18 13:27 12/29/18 22:07 Tylenol PO 650 mg Q4H PRN Administration Headache/Fever/Mild Pain (1-3) Hydrocodone Bitart/Acetaminophen 1 tab 12/26/18 16:19 01/03/19 04:07 [place] 10/325 PO 1 tab Q4H PRN Administration Severe Pain (7-10) Alprazolam 0.25 mg 12/26/18 14:04 01/02/19 12:29 Xanax PO 0.25 mg BIDPRN PRN Administration Anxiety Bisacodyl 10 mg 12/27/18 09:00 01/02/19 17:20 Dulcolax MS Not Given DAILY REBEKAH Clonazepam 1 mg 12/26/18 21:00 01/02/19 20:14 Klonopin PO 1 mg Q24HR REBEKAH Administration Enoxaparin Sodium 30 mg 12/31/18 21:00 01/02/19 20:15 Lovenox SC 30 mg 2100 REBEKAH Administration Famotidine 20 mg 12/31/18 09:00 01/02/19 20:12 Pepcid PO 20 mg BID REBEKAH Administration Menthol/Methyl Salicylate 0 gm 12/28/18 18:36 12/29/18 00:27 Muscle Rub Cream (Bengay) TOP 85 gm QID PRN Administration Muscle Pain Morphine Sulfate 4 mg 12/26/18 17:50 01/02/19 12:33 Morphine SLOW IVP 4 mg Q4H PRN Administration Moderate to Severe Pain (6-10) Morphine Sulfate 30 mg 12/28/18 09:00 01/02/19 20:12 Ms Contin PO 30 mg Q12HR REBEKAH Administration Ondansetron HCl 4 mg 12/26/18 13:27 12/29/18 16:37 Zofran Odt PO 4 mg Q6H PRN Administration Nausea/Vomiting Ondansetron HCl 4 mg 12/26/18 13:27 01/02/19 12:34 Zofran IVP 4 mg Q6H PRN Administration Nausea/Vomiting Phosphorus 250 mg 01/02/19 08:00 01/03/19 08:25 Kphos Neutral PO Not Given TID-WM REBEKAH Polyethylene Glycol 17 gm 12/26/18 13:29 12/31/18 21:33 Miralax PO 17 gm DAILY PRN Administration Constipation Polyethylene Glycol 17 gm 01/01/19 09:00 01/02/19 17:12 Miralax PO 17 gm DAILY REBEKAH Administration Senna/Docusate Sodium 2 tab 12/26/18 21:00 01/02/19 20:12 Senokot S PO 2 tab BID REBEKAH Administration Simethicone 80 mg 12/28/18 20:41 12/29/18 05:54 Mylicon Chewable PO 80 mg PCHS PRN Administration Gas Pain - Exam General Appearance: NAD, awake alert Eye: PERRL, anicteric sclera ENT: no oropharyngeal lesions, moist mucosa Neck: supple, no JVD Heart: RRR, no murmur Respiratory: no wheezes, no rales Gastrointestinal: soft, non-tender, non-distended, normal bowel sounds Extremities: no cyanosis, no edema Neurological: cranial nerve grossly intact, no focal deficits Psychiatric: normal affect, A&O x 3 Hosp A/P (1) Breast cancer metastasized to bone Code(s): C50.919 - MALIGNANT NEOPLASM OF UNSP SITE OF UNSPECIFIED FEMALE BREAST ; C79.51 - SECONDARY MALIGNANT NEOPLASM OF BONE Status: Acute Qualifiers: Laterality: left Qualified Code(s): C50.912 - Malignant neoplasm of unspecified site of left female breast; C79.51 - Secondary malignant neoplasm of bone (2) Dyslipidemia Code(s): E78.5 - HYPERLIPIDEMIA, UNSPECIFIED Status: Chronic (3) Chronic anemia Code(s): D64.9 - ANEMIA, UNSPECIFIED Status: Chronic (4) Compression fracture of T11 vertebra Code(s): S22.080A - WEDGE COMPRESSION FRACTURE OF T11-T12 VERTEBRA, INIT Status: Chronic Qualifiers: Encounter type: subsequent encounter (5) Hypercalcemia of malignancy Code(s): E83.52 - HYPERCALCEMIA Status: Resolved - Plan invasive adenocarcinoma left breast with prior chemotherapy now with mets to bone on palliative radiation therapy, 4th dose today had mediport 01/03/2019 calcium levels have normalized after zoledronic acid and calcitonin administration hemostable needs to ambulate with PT echo showed normal ef CT guided biopsy of left iliac bone revealed metastatic carcinoma of breast origin is on morphine prn, miralax and senna dc plan per onc/rad onc adv
[2019-01-03] MEDS: Senokot S 8.6-50 MG TAB PO SCH ×2 (11:45→20:43)
[2019-01-03] MEDS: Morphine ER 30 MG TAB PO SCH ×2 (11:46→20:44)
[2019-01-03] MEDS: Bisacodyl 10 MG SUPP PR SCH (11:47)
[2019-01-03] MEDS: Polyethylene Glycol 3350 17 GM Packet PO SCH (11:52)
[2019-01-03] MEDS: Morphine 4 MG/ML VIAL SLOW IVP PRN (14:50)
[2019-01-03] MEDS: clonazePAM 1 MG TAB PO SCH (20:45)
[2019-01-03] MEDS: Enoxaparin Sodium 30 MG/0.3 ML SYRINGE SC SCH (20:46)
[2019-01-03] MEDS ORDERED: PROPOFOL 200 MG/20 ML VIAL ONE (22:35)
[2019-01-04] MEDS: HYDROcodone/Acetaminophen 10/325 mg Tablet PO PRN ×3 (00:51→14:12)
[2019-01-04] MEDS: Polyethylene Glycol 3350 17 GM Packet PO SCH (09:30)
[2019-01-04] MEDS: Morphine ER 30 MG TAB PO SCH ×2 (09:31→20:30)
[2019-01-04] MEDS: Senokot S 8.6-50 MG TAB PO SCH ×2 (09:33→21:26)
[2019-01-04] MEDS: K-Phos Neutral 250 MG TAB PO SCH ×3 (09:33→17:45)
[2019-01-04] MEDS: Bisacodyl 10 MG SUPP PR SCH (09:34)
[2019-01-04] MEDS: Famotidine 20 MG TAB PO SCH ×2 (09:34→21:28)
--- NOTE | 2019-01-04 11:55 | PDOC.MOPN ---
Interval History: pain after mediport placement but otherwise controlled with meds - Vital Signs Vital Signs: Vital Signs (12 hours) Temp Pulse Resp BP Pulse Ox 01/04/19 08:00 98.0 F 117 H 18 126/65 93 L 01/04/19 04:58 98.4 F 115 H 16 130/75 92 L 01/04/19 00:57 98.1 F 113 H 16 116/63 95 Weight Admit Weight 111 lb Weight 122 lb 14.4 oz - Physical Exam General: Alert, Oriented x3, No acute distress HEENT: Atraumatic, PERRLA, EOMI, Mucous membr. moist/pink Lungs: Clear to auscultation, Normal air movement Cardiovascular: Regular rate, Normal S1, Normal S2, No murmurs, Gallops, Rubs Abdomen: Normal bowel sounds, Soft, No tenderness, No hepatospenomegaly, No masses Extremities: No clubbing, No cyanosis, No edema, Normal pulses, No tenderness/ swelling Skin: No rashes, No breakdown, No significant lesion Neurological: Normal gait, Normal speech, Strength at 5/5 X4 ext, Normal tone, Sensation intact, Cranial nerves 3-12 NL, Reflexes 2+ Psych/Mental Status: Mental status NL, Mood NL - Labs Result Diagrams: 01/02/19 05:17 01/02/19 05:17 Status: lab reviewed by me, discussed w/pathologist - Pathology Pathology: breast A/P - Problem (1) Breast cancer metastasized to bone Current Visit: Yes Code(s): C50.919 - MALIGNANT NEOPLASM OF UNSP SITE OF UNSPECIFIED FEMALE BREAST; C79.51 - SECONDARY MALIGNANT NEOPLASM OF BONE Status: Acute Qualifiers: Laterality: left Qualified Code(s): C50.912 - Malignant neoplasm of unspecified site of left female breast; C79.51 - Secondary malignant neoplasm of bone (2) Bone metastases Current Visit: Yes Code(s): C79.51 - SECONDARY MALIGNANT NEOPLASM OF BONE Status: Acute (3) Hypercalcemia of malignancy Current Visit: Yes Code(s): E83.52 - HYPERCALCEMIA Status: Resolved - Plan Plan: xrt, pain control PDL-1 on tissue pending.
[2019-01-04] MEDS: Ondansetron PF 4 MG/2 ML Vial IVP PRN (14:34)
[2019-01-04] MEDS: Morphine 4 MG/ML VIAL SLOW IVP PRN (14:34)
--- NOTE | 2019-01-04 18:09 | PDOC.HOSPP ---
- Subjective Encounter Date: 01/04/19 Encounter Time: 14:00 Subjective: is getting ready to go to radiation therapy has not ambulated yet, back pain is better no sob - Objective Vital Signs & Weight: Vital Signs (12 hours) Temp Pulse Resp BP Pulse Ox 01/04/19 16:00 98.6 F 108 H 18 117/63 94 L 01/04/19 12:05 98.9 F 116 H 18 117/62 93 L 01/04/19 08:00 98.0 F 117 H 18 126/65 93 L Weight Admit Weight 111 lb Weight 122 lb 14.4 oz I&O: 01/03/19 01/04/19 01/05/19 06:59 06:59 06:59 Intake Total 480 590 Output Total 900 800 Balance -420 -210 Result Diagrams: 01/02/19 05:17 01/02/19 05:17 Hospitalist ROS - Medication Medications: Active Medications Generic Name Dose Route Start Last Admin Trade Name Freq PRN Reason Stop Dose Admin Acetaminophen 650 mg 12/26/18 13:27 12/29/18 22:07 Tylenol PO 650 mg Q4H PRN Administration Headache/Fever/Mild Pain (1-3) Hydrocodone Bitart/Acetaminophen 1 tab 12/26/18 16:19 01/04/19 14:12 [place] 10/325 PO 1 tab Q4H PRN Administration Severe Pain (7-10) Alprazolam 0.25 mg 12/26/18 14:04 01/02/19 12:29 Xanax PO 0.25 mg BIDPRN PRN Administration Anxiety Bisacodyl 10 mg 12/27/18 09:00 01/04/19 09:34 Dulcolax ID Not Given DAILY REBEKAH Clonazepam 1 mg 12/26/18 21:00 01/03/19 20:45 Klonopin PO 1 mg Q24HR REBEKAH Administration Enoxaparin Sodium 30 mg 12/31/18 21:00 01/03/19 20:46 Lovenox SC 30 mg 2100 REBEKAH Administration Famotidine 20 mg 12/31/18 09:00 01/04/19 09:34 Pepcid PO 20 mg BID REBEKAH Administration Menthol/Methyl Salicylate 0 gm 12/28/18 18:36 12/29/18 00:27 Muscle Rub Cream (Bengay) TOP 85 gm QID PRN Administration Muscle Pain Morphine Sulfate 4 mg 12/26/18 17:50 01/04/19 14:34 Morphine SLOW IVP 4 mg Q4H PRN Administration Moderate to Severe Pain (6-10) Morphine Sulfate 30 mg 12/28/18 09:00 01/04/19 09:31 Ms Contin PO 30 mg Q12HR REBEKAH Administration Ondansetron HCl 4 mg 12/26/18 13:27 12/29/18 16:37 Zofran Odt PO 4 mg Q6H PRN Administration Nausea/Vomiting Ondansetron HCl 4 mg 12/26/18 13:27 01/04/19 14:34 Zofran IVP 4 mg Q6H PRN Administration Nausea/Vomiting Phosphorus 250 mg 01/02/19 08:00 01/04/19 12:00 Kphos Neutral PO Not Given TID-WM REBEKAH Polyethylene Glycol 17 gm 12/26/18 13:29 12/31/18 21:33 Miralax PO 17 gm DAILY PRN Administration Constipation Polyethylene Glycol 17 gm 01/01/19 09:00 01/04/19 09:30 Miralax PO Not Given DAILY REBEKAH Senna/Docusate Sodium 2 tab 12/26/18 21:00 01/04/19 09:33 Senokot S PO 2 tab BID REBEKAH Administration Simethicone 80 mg 12/28/18 20:41 12/29/18 05:54 Mylicon Chewable PO 80 mg PCHS PRN Administration Gas Pain - Exam General Appearance: awake alert, ill appearing Eye: PERRL, anicteric sclera ENT: no oropharyngeal lesions, moist mucosa Neck: supple, no JVD Heart: RRR, no murmur Respiratory: no wheezes, no rales, rhonchi Gastrointestinal: soft, non-tender, normal bowel sounds Extremities: no cyanosis, no edema Neurological: cranial nerve grossly intact, no focal deficits Psychiatric: normal affect, A&O x 3 Hosp A/P (1) Breast cancer metastasized to bone Code(s): C50.919 - MALIGNANT NEOPLASM OF UNSP SITE OF UNSPECIFIED FEMALE BREAST ; C79.51 - SECONDARY MALIGNANT NEOPLASM OF BONE Status: Acute Qualifiers: Laterality: left Qualified Code(s): C50.912 - Malignant neoplasm of unspecified site of left female breast; C79.51 - Secondary malignant neoplasm of bone (2) Dyslipidemia Code(s): E78.5 - HYPERLIPIDEMIA, UNSPECIFIED Status: Chronic (3) Chronic anemia Code(s): D64.9 - ANEMIA, UNSPECIFIED Status: Chronic (4) Compression fracture of T11 vertebra Code(s): S22.080A - WEDGE COMPRESSION FRACTURE OF T11-T12 VERTEBRA, INIT Status: Chronic Qualifiers: Encounter type: subsequent encounter (5) Hypercalcemia of malignancy Code(s): E83.52 - HYPERCALCEMIA Status: Resolved - Plan invasive adenocarcinoma left breast with prior chemotherapy now with mets to bone on palliative radiation therapy, 5th dose today had mediport 01/03/2019 calcium levels have normalized after zoledronic acid and calcitonin administration hemostable needs to ambulate with PT echo showed normal ef CT guided biopsy of left iliac bone revealed metastatic carcinoma of breast origin is on morphine prn, miralax and senna dc plan per onc/rad onc adv taper and wean off nasal oxygen, will give one dose lasix.
[2019-01-04] MEDS ORDERED: Furosemide 40 MG/4 ML VIAL SLOW IVP SCH (18:15)
[2019-01-04] MEDS: clonazePAM 1 MG TAB PO SCH (21:28)
[2019-01-04] MEDS: Enoxaparin Sodium 30 MG/0.3 ML SYRINGE SC SCH (21:29)
[2019-01-05] MEDS: HYDROcodone/Acetaminophen 10/325 mg Tablet PO PRN ×3 (00:21→14:10)
[2019-01-05] MEDS: Carvedilol 6.25 MG TAB PO SCH ×2 (08:50→17:34)
[2019-01-05] MEDS: Morphine ER 30 MG TAB PO SCH ×2 (08:50→21:01)
[2019-01-05] MEDS: Senokot S 8.6-50 MG TAB PO SCH ×2 (08:51→21:01)
[2019-01-05] MEDS: K-Phos Neutral 250 MG TAB PO SCH ×3 (08:51→17:34)
[2019-01-05] MEDS: Polyethylene Glycol 3350 17 GM Packet PO SCH (08:52)
[2019-01-05] MEDS: Famotidine 20 MG TAB PO SCH ×2 (08:52→21:03)
[2019-01-05] MEDS: Bisacodyl 10 MG SUPP PR SCH (08:52)
--- NOTE | 2019-01-05 11:54 | PDOC.HOSPP ---
- Subjective Encounter Date: 01/05/19 Encounter Time: 10:45 Subjective: no sob, diuresed well with lasix yesterday is drinking ensure/carnation chocolate drinks, not much of solid food (feels fullness) ambulated around 10ft with PT this am - Objective Vital Signs & Weight: Vital Signs (12 hours) Temp Pulse Resp BP Pulse Ox 01/05/19 11:11 98.8 F 100 18 119/63 90 L 01/05/19 08:45 116 H 18 119/64 94 L 01/05/19 07:40 98 01/05/19 07:36 123 H 16 95 01/05/19 07:34 99.1 F 120 H 16 116/64 98 01/05/19 07:33 98 01/05/19 04:00 98.6 F 125 H 16 122/65 96 01/05/19 00:00 99.0 F 126 H 20 122/72 95 Weight Admit Weight 111 lb Weight 122 lb 14.4 oz I&O: 01/04/19 01/05/19 01/06/19 06:59 06:59 06:59 Intake Total 590 240 Output Total 800 1450 Balance -210 -1210 Result Diagrams: 01/02/19 05:17 01/02/19 05:17 Hospitalist ROS - Medication Medications: Active Medications Generic Name Dose Route Start Last Admin Trade Name Freq PRN Reason Stop Dose Admin Acetaminophen 650 mg 12/26/18 13:27 12/29/18 22:07 Tylenol PO 650 mg Q4H PRN Administration Headache/Fever/Mild Pain (1-3) Hydrocodone Bitart/Acetaminophen 1 tab 12/26/18 16:19 01/05/19 07:27 [place] 10/325 PO 1 tab Q4H PRN Administration Severe Pain (7-10) Albuterol/Ipratropium 3 ml 01/04/19 19:00 01/05/19 07:36 Duoneb NEB 3 ml [id number] REBEKAH Administration Alprazolam 0.25 mg 12/26/18 14:04 01/02/19 12:29 Xanax PO 0.25 mg BIDPRN PRN Administration Anxiety Bisacodyl 10 mg 12/27/18 09:00 01/05/19 08:52 Dulcolax [place] Not Given DAILY REBEKAH Carvedilol 6.25 mg 01/05/19 08:00 01/05/19 08:50 Coreg PO 6.25 mg BID-[facility] Administration Clonazepam 1 mg 12/26/18 21:00 01/04/19 21:28 Klonopin PO 1 mg Q24HR REBEKAH Administration Enoxaparin Sodium 30 mg 12/31/18 21:00 01/04/19 21:29 Lovenox SC 30 mg 2100 [facility] Administration Famotidine 20 mg 12/31/18 09:00 01/05/19 08:52 Pepcid PO 20 mg BID [facility] Administration Menthol/Methyl Salicylate 0 gm 12/28/18 18:36 12/29/18 00:27 Muscle Rub Cream (Bengay) TOP 85 gm QID PRN Administration Muscle Pain Morphine Sulfate 4 mg 12/26/18 17:50 01/04/19 14:34 Morphine SLOW IVP 4 mg Q4H PRN Administration Moderate to Severe Pain (6-10) Morphine Sulfate 30 mg 12/28/18 09:00 01/05/19 08:50 Ms Contin PO 30 mg Q12HR [facility] Administration Ondansetron HCl 4 mg 12/26/18 13:27 12/29/18 16:37 Zofran Odt PO 4 mg Q6H PRN Administration Nausea/Vomiting Ondansetron HCl 4 mg 12/26/18 13:27 01/04/19 14:34 Zofran IVP 4 mg Q6H PRN Administration Nausea/Vomiting Phosphorus 250 mg 01/02/19 08:00 01/05/19 08:51 Kphos Neutral PO 250 mg TID-[facility] Administration Polyethylene Glycol 17 gm 12/26/18 13:29 12/31/18 21:33 Miralax PO 17 gm DAILY PRN Administration Constipation Polyethylene Glycol 17 gm 01/01/19 09:00 01/05/19 08:52 Miralax PO Not Given DAILY [facility] Senna/Docusate Sodium 2 tab 12/26/18 21:00 01/05/19 08:51 Senokot S PO Not Given BID [facility] Simethicone 80 mg 12/28/18 20:41 12/29/18 05:54 Mylicon Chewable PO 80 mg PCHS PRN Administration Gas Pain Sodium Chloride 10 ml 01/05/19 09:00 01/05/19 08:54 Flush - Normal Saline IVF 10 ml Q12HR REBEKAH Administration - Exam General Appearance: NAD, awake alert Eye: PERRL, anicteric sclera ENT: no oropharyngeal lesions, moist mucosa Heart: RRR, no murmur Respiratory: no wheezes, rales Gastrointestinal: soft, non-tender, normal bowel sounds, distended Extremities: no cyanosis, no edema Neurological: cranial nerve grossly intact, no focal deficits Psychiatric: normal affect, A&O x 3 Hosp A/P (1) Breast cancer metastasized to bone Code(s): C50.919 - MALIGNANT NEOPLASM OF UNSP SITE OF UNSPECIFIED FEMALE BREAST ; C79.51 - SECONDARY MALIGNANT NEOPLASM OF BONE Status: Acute Qualifiers: Laterality: left Qualified Code(s): C50.912 - Malignant neoplasm of unspecified site of left female breast; C79.51 - Secondary malignant neoplasm of bone (2) Dyslipidemia Code(s): E78.5 - HYPERLIPIDEMIA, UNSPECIFIED Status: Chronic (3) Chronic anemia Code(s): D64.9 - ANEMIA, UNSPECIFIED Status: Chronic (4) Compression fracture of T11 vertebra Code(s): S22.080A - WEDGE COMPRESSION FRACTURE OF T11-T12 VERTEBRA, INIT Status: Chronic Qualifiers: Encounter type: subsequent encounter (5) Hypercalcemia of malignancy Code(s): E83.52 - HYPERCALCEMIA Status: Resolved (6) Physical deconditioning Code(s): R53.81 - OTHER MALAISE Status: Acute - Plan invasive adenocarcinoma left breast with prior chemotherapy now with mets to bone on palliative radiation therapy, 6th dose today had mediport 01/03/2019 calcium levels have normalized after zoledronic acid and calcitonin administration hemostable needs to ambulate with PT echo showed normal ef CT guided biopsy of left iliac bone revealed metastatic carcinoma of breast origin is on morphine prn, miralax and senna dc plan per onc/rad onc adv taper and wean off nasal oxygen, will give one more dose lasix.
[2019-01-05] MEDS ORDERED: Furosemide 20 MG/2 ML VIAL SLOW IVP SCH (12:00)
[2019-01-05] MEDS: Calcium Carbonate 500 MG ChewTAB PO PRN (12:41)
[2019-01-05] MEDS: Morphine 4 MG/ML VIAL SLOW IVP PRN (14:32)
[2019-01-05] MEDS: Enoxaparin Sodium 30 MG/0.3 ML SYRINGE SC SCH (21:00)
[2019-01-05] MEDS: clonazePAM 1 MG TAB PO SCH (21:03)
[2019-01-06] MEDS: HYDROcodone/Acetaminophen 10/325 mg Tablet PO PRN ×3 (06:16→20:47)
[2019-01-06] MEDS: K-Phos Neutral 250 MG TAB PO SCH ×3 (08:21→17:52)
[2019-01-06] MEDS: Senokot S 8.6-50 MG TAB PO SCH ×2 (08:21→20:46)
[2019-01-06] MEDS: Famotidine 20 MG TAB PO SCH ×2 (08:22→20:49)
[2019-01-06] MEDS: Carvedilol 6.25 MG TAB PO SCH ×2 (08:22→17:52)
[2019-01-06] MEDS: Polyethylene Glycol 3350 17 GM Packet PO SCH (08:24)
[2019-01-06] MEDS: Bisacodyl 10 MG SUPP PR SCH (08:24)
[2019-01-06] MEDS: Morphine ER 30 MG TAB PO SCH ×2 (08:27→20:48)
[2019-01-06] MEDS: Calcium Carbonate 500 MG ChewTAB PO PRN (10:35)
--- NOTE | 2019-01-06 10:48 | PDOC.HOSPP ---
- Subjective Encounter Date: 01/06/19 Encounter Time: 10:15 Subjective: awake, family at bedside has lower right chest post area pain no sob - Objective Vital Signs & Weight: Vital Signs (12 hours) Temp Pulse Resp BP BP Pulse Ox 01/06/19 08:29 104 H 18 97 01/06/19 08:22 103/59 L 01/06/19 08:20 101 H 17 112/58 L 94 L 01/06/19 08:03 98.7 F 109 H 16 112/58 L 92 L 01/06/19 08:00 97 01/06/19 00:13 95 01/05/19 23:33 97.4 F L 108 H 16 116/62 95 Weight Admit Weight 111 lb Weight 122 lb 14.4 oz I&O: 01/05/19 01/06/19 01/07/19 06:59 06:59 06:59 Intake Total 240 1760 Output Total 1450 1100 Balance -1210 660 Result Diagrams: 01/02/19 05:17 01/02/19 05:17 Hospitalist ROS - Medication Medications: Active Medications Generic Name Dose Route Start Last Admin Trade Name Freq PRN Reason Stop Dose Admin Acetaminophen 650 mg 12/26/18 13:27 12/29/18 22:07 Tylenol PO 650 mg Q4H PRN Administration Headache/Fever/Mild Pain (1-3) Hydrocodone Bitart/Acetaminophen 1 tab 12/26/18 16:19 01/06/19 06:16 [place] 10/325 PO 1 tab Q4H PRN Administration Severe Pain (7-10) Albuterol/Ipratropium 3 ml 01/04/19 19:00 01/06/19 08:29 Duoneb NEB 3 ml [id number] REBEKAH Administration Bisacodyl 10 mg 12/27/18 09:00 01/06/19 08:24 Dulcolax [place] Not Given DAILY REBEKAH Calcium Carbonate 1,000 mg 12/26/18 13:27 01/06/19 10:35 Tums PO 1,000 mg Q4H PRN Administration Heartburn or Indigestion Carvedilol 6.25 mg 01/05/19 08:00 01/06/19 08:22 Coreg PO 6.25 mg BID-WM REBEKAH Administration Clonazepam 1 mg 12/26/18 21:00 01/05/19 21:03 Klonopin PO 1 mg Q24HR REBEKAH Administration Enoxaparin Sodium 30 mg 12/31/18 21:00 01/05/19 21:00 Lovenox SC 30 mg 2100 REBEKAH Administration Famotidine 20 mg 12/31/18 09:00 01/06/19 08:22 Pepcid PO 20 mg BID REBEKAH Administration Menthol/Methyl Salicylate 0 gm 12/28/18 18:36 12/29/18 00:27 Muscle Rub Cream (Bengay) TOP 85 gm QID PRN Administration Muscle Pain Morphine Sulfate 4 mg 12/26/18 17:50 01/05/19 14:32 Morphine SLOW IVP 4 mg Q4H PRN Administration Moderate to Severe Pain (6-10) Morphine Sulfate 30 mg 12/28/18 09:00 01/06/19 08:27 Ms Contin PO 30 mg Q12HR REBEKAH Administration Ondansetron HCl 4 mg 12/26/18 13:27 12/29/18 16:37 Zofran Odt PO 4 mg Q6H PRN Administration Nausea/Vomiting Ondansetron HCl 4 mg 12/26/18 13:27 01/04/19 14:34 Zofran IVP 4 mg Q6H PRN Administration Nausea/Vomiting Phosphorus 250 mg 01/02/19 08:00 01/06/19 08:21 Kphos Neutral PO 250 mg TID-WM REBEKAH Administration Polyethylene Glycol 17 gm 12/26/18 13:29 12/31/18 21:33 Miralax PO 17 gm DAILY PRN Administration Constipation Polyethylene Glycol 17 gm 01/01/19 09:00 01/06/19 08:24 Miralax PO Not Given DAILY REBEKAH Senna/Docusate Sodium 2 tab 12/26/18 21:00 01/06/19 08:21 Senokot S PO 2 tab BID REBEKAH Administration Simethicone 80 mg 12/28/18 20:41 12/29/18 05:54 Mylicon Chewable PO 80 mg PCHS PRN Administration Gas Pain Sodium Chloride 10 ml 01/05/19 09:00 01/06/19 08:25 Flush - Normal Saline IVF 10 ml Q12HR REBEKAH Administration - Exam General Appearance: NAD, awake alert Eye: PERRL, anicteric sclera ENT: no oropharyngeal lesions, moist mucosa Neck: supple, no JVD Heart: RRR, no murmur Respiratory: no wheezes, no rales Gastrointestinal: soft, non-tender, normal bowel sounds Extremities: no cyanosis, no edema Neurological: cranial nerve grossly intact, no focal deficits Psychiatric: normal affect, A&O x 3 Hosp A/P (1) Breast cancer metastasized to bone Code(s): C50.919 - MALIGNANT NEOPLASM OF UNSP SITE OF UNSPECIFIED FEMALE BREAST ; C79.51 - SECONDARY MALIGNANT NEOPLASM OF BONE Status: Acute Qualifiers: Laterality: left Qualified Code(s): C50.912 - Malignant neoplasm of unspecified site of left female breast; C79.51 - Secondary malignant neoplasm of bone (2) Dyslipidemia Code(s): E78.5 - HYPERLIPIDEMIA, UNSPECIFIED Status: Chronic (3) Chronic anemia Code(s): D64.9 - ANEMIA, UNSPECIFIED Status: Chronic (4) Compression fracture of T11 vertebra Code(s): S22.080A - WEDGE COMPRESSION FRACTURE OF T11-T12 VERTEBRA, INIT Status: Chronic Qualifiers: Encounter type: subsequent encounter (5) Hypercalcemia of malignancy Code(s): E83.52 - HYPERCALCEMIA Status: Resolved (6) Physical deconditioning Code(s): R53.81 - OTHER MALAISE Status: Acute - Plan invasive adenocarcinoma left breast with prior chemotherapy now with mets to bone on palliative radiation therapy, 7th dose today had mediport 01/03/2019 calcium levels have normalized after zoledronic acid and calcitonin administration hemostable needs to ambulate with PT, walked around 10ft yesterday. echo showed normal ef CT guided biopsy of left iliac bone revealed metastatic carcinoma of breast origin is on morphine prn, miralax and senna dc plan per onc/rad onc adv taper and wean off nasal oxygen.
[2019-01-06] MEDS: Morphine 4 MG/ML VIAL SLOW IVP PRN (15:07)
--- NOTE | 2019-01-06 15:21 | PDOC.MOPN ---
Interval History: pain controlled, ambulating in room with clamshell - Vital Signs Vital Signs: Vital Signs (12 hours) Temp Pulse Resp BP BP Pulse Ox 01/06/19 13:55 96 20 97 01/06/19 12:07 98.8 F 118 H 18 119/65 94 L 01/06/19 08:29 104 H 18 97 01/06/19 08:22 103/59 L 01/06/19 08:20 101 H 17 112/58 L 94 L 01/06/19 08:03 98.7 F 109 H 16 112/58 L 92 L 01/06/19 08:00 97 Weight Admit Weight 111 lb Weight 122 lb 14.4 oz - Physical Exam General: Alert, Oriented x3, No acute distress HEENT: Atraumatic, PERRLA, EOMI, Mucous membr. moist/pink Lungs: Clear to auscultation, Normal air movement Cardiovascular: Regular rate, Normal S1, Normal S2, No murmurs, Gallops, Rubs Abdomen: Normal bowel sounds, Soft, No tenderness, No hepatospenomegaly, No masses Extremities: No clubbing, No cyanosis, No edema, Normal pulses, No tenderness/ swelling Skin: No rashes, No breakdown, No significant lesion Neurological: Normal gait, Normal speech, Strength at 5/5 X4 ext, Normal tone, Sensation intact, Cranial nerves 3-12 NL, Reflexes 2+ Psych/Mental Status: Mental status NL, Mood NL - Labs Result Diagrams: 01/02/19 05:17 01/02/19 05:17 Status: lab reviewed by me A/P - Problem (1) Breast cancer metastasized to bone Current Visit: Yes Code(s): C50.919 - MALIGNANT NEOPLASM OF UNSP SITE OF UNSPECIFIED FEMALE BREAST; C79.51 - SECONDARY MALIGNANT NEOPLASM OF BONE Status: Acute Qualifiers: Laterality: left Qualified Code(s): C50.912 - Malignant neoplasm of unspecified site of left female breast; C79.51 - Secondary malignant neoplasm of bone (2) Bone metastases Current Visit: Yes Code(s): C79.51 - SECONDARY MALIGNANT NEOPLASM OF BONE Status: Acute (3) Hypercalcemia of malignancy Current Visit: Yes Code(s): E83.52 - HYPERCALCEMIA Status: Resolved - Plan Plan: XRT completed next week Encouraged hydration OOB with meals and prn. likely go home versus rehab
[2019-01-06] MEDS: Enoxaparin Sodium 30 MG/0.3 ML SYRINGE SC SCH (20:49)
[2019-01-06] MEDS: clonazePAM 1 MG TAB PO SCH (20:55)
[2019-01-07] MEDS: HYDROcodone/Acetaminophen 10/325 mg Tablet PO PRN ×5 (00:51→22:01)
[2019-01-07] MEDS: Morphine ER 30 MG TAB PO SCH ×2 (08:50→20:43)
[2019-01-07] MEDS: K-Phos Neutral 250 MG TAB PO SCH ×3 (08:51→18:24)
[2019-01-07] MEDS: Senokot S 8.6-50 MG TAB PO SCH ×2 (08:51→20:43)
[2019-01-07] MEDS: Famotidine 20 MG TAB PO SCH ×2 (08:51→20:43)
[2019-01-07] MEDS: Carvedilol 6.25 MG TAB PO SCH ×2 (08:51→18:25)
[2019-01-07] MEDS: Bisacodyl 10 MG SUPP PR SCH (08:51)
[2019-01-07] MEDS: Polyethylene Glycol 3350 17 GM Packet PO SCH (08:52)
--- NOTE | 2019-01-07 14:03 | PDOC.HOSPP ---
- Subjective Subjective: Pt seen c/o increased pain with movement , Denies fever chest pain, SOB headache - Objective Vital Signs & Weight: Vital Signs (12 hours) Temp Pulse Resp BP BP Pulse Ox 01/07/19 13:39 106 H 16 94 L 01/07/19 08:51 115/61 01/07/19 08:05 102 H 16 93 L 01/07/19 08:00 93 L 01/07/19 07:40 98.5 F 101 H 16 114/63 93 L 01/07/19 03:08 94 L Weight Admit Weight 111 lb Weight 122 lb 14.4 oz I&O: 01/06/19 01/07/19 01/08/19 06:59 06:59 06:59 Intake Total 1760 1480 Output Total 1100 1550 Balance 660 -70 Result Diagrams: 01/02/19 05:17 01/02/19 05:17 Hospitalist ROS - Review of Systems Constitutional: denies: fever Eyes: denies: pain ENT: denies: ear pain Cardiovascular: denies: chest pain Gastrointestinal: denies: nausea Musculoskeletal: reports: back pain Skin: denies: rash Neurological: denies: weakness - Medication Medications: Active Medications Generic Name Dose Route Start Last Admin Trade Name Freq PRN Reason Stop Dose Admin Acetaminophen 650 mg 12/26/18 13:27 12/29/18 22:07 Tylenol PO 650 mg Q4H PRN Administration Headache/Fever/Mild Pain (1-3) Hydrocodone Bitart/Acetaminophen 1 tab 12/26/18 16:19 01/07/19 13:15 [place] 10/325 PO 1 tab Q4H PRN Administration Severe Pain (7-10) Albuterol/Ipratropium 3 ml 01/04/19 19:00 01/07/19 13:39 Duoneb NEB 3 ml [id number] REBEKAH Administration Bisacodyl 10 mg 12/27/18 09:00 01/07/19 08:51 Dulcolax [place] Not Given DAILY REBEKAH Calcium Carbonate 1,000 mg 12/26/18 13:27 01/06/19 10:35 Tums PO 1,000 mg Q4H PRN Administration Heartburn or Indigestion Carvedilol 6.25 mg 01/05/19 08:00 01/07/19 08:51 Coreg PO 6.25 mg BID-WM REBEKAH Administration Clonazepam 1 mg 12/26/18 21:00 01/06/19 20:55 Klonopin PO 1 mg Q24HR REBEKAH Administration Enoxaparin Sodium 30 mg 12/31/18 21:00 01/06/19 20:49 Lovenox SC 30 mg 2100 REBEKAH Administration Famotidine 20 mg 12/31/18 09:00 01/07/19 08:51 Pepcid PO 20 mg BID REBEKAH Administration Menthol/Methyl Salicylate 0 gm 12/28/18 18:36 12/29/18 00:27 Muscle Rub Cream (Bengay) TOP 85 gm QID PRN Administration Muscle Pain Morphine Sulfate 4 mg 12/26/18 17:50 01/06/19 15:07 Morphine SLOW IVP 4 mg Q4H PRN Administration Moderate to Severe Pain (6-10) Morphine Sulfate 30 mg 12/28/18 09:00 01/07/19 08:50 Ms Contin PO 30 mg Q12HR REBEKAH Administration Ondansetron HCl 4 mg 12/26/18 13:27 12/29/18 16:37 Zofran Odt PO 4 mg Q6H PRN Administration Nausea/Vomiting Ondansetron HCl 4 mg 12/26/18 13:27 01/04/19 14:34 Zofran IVP 4 mg Q6H PRN Administration Nausea/Vomiting Phosphorus 250 mg 01/02/19 08:00 01/07/19 13:16 Kphos Neutral PO 250 mg TID- REBEKAH Administration Polyethylene Glycol 17 gm 12/26/18 13:29 12/31/18 21:33 Miralax PO 17 gm DAILY PRN Administration Constipation Polyethylene Glycol 17 gm 01/01/19 09:00 01/07/19 08:52 Miralax PO 17 gm DAILY REBEKAH Administration Senna/Docusate Sodium 2 tab 12/26/18 21:00 01/07/19 08:51 Senokot S PO 2 tab BID REBEKAH Administration Simethicone 80 mg 12/28/18 20:41 12/29/18 05:54 Mylicon Chewable PO 80 mg PCHS PRN Administration Gas Pain Sodium Chloride 10 ml 01/05/19 09:00 01/07/19 08:52 Flush - Normal Saline IVF 10 ml Q12HR REBEKAH Administration - Exam ENT: normocephalic atraumatic Neck: supple Heart: no murmur Respiratory: CTAB Gastrointestinal: soft Extremities: no cyanosis Skin: normal turgor Neurological: cranial nerve grossly intact Musculoskeletal: normal tone Psychiatric: normal affect Hosp A/P - Plan Breast cancer metastasized to bone invasive adenocarcinoma left breast with prior chemotherapy now with mets to bone on palliative radiation therapy Dyslipidemia Continue statin Chronic anemia currently no active bleeding Compression fracture of T11 vertebra Hypercalcemia of malignancy Physical deconditioning, Continue PT evaluation Plan Discussed with pt and nursing staff
[2019-01-07] MEDS: Morphine 4 MG/ML VIAL SLOW IVP PRN (15:45)
[2019-01-07] MEDS: clonazePAM 1 MG TAB PO SCH (20:43)
[2019-01-07] MEDS: Enoxaparin Sodium 30 MG/0.3 ML SYRINGE SC SCH (20:44)
[2019-01-08] MEDS: HYDROcodone/Acetaminophen 10/325 mg Tablet PO PRN ×5 (02:03→22:21)
[2019-01-08 07:12] LABS: Phosphorus 4.2 mg/dL (2.3-4.7)
[2019-01-08] MEDS: Morphine ER 30 MG TAB PO SCH ×2 (08:26→20:23)
[2019-01-08] MEDS: Famotidine 20 MG TAB PO SCH ×2 (08:27→20:23)
[2019-01-08] MEDS: K-Phos Neutral 250 MG TAB PO SCH (08:28)
[2019-01-08] MEDS: Bisacodyl 10 MG SUPP PR SCH (08:28)
[2019-01-08] MEDS: Senokot S 8.6-50 MG TAB PO SCH ×2 (08:28→20:23)
[2019-01-08] MEDS: Carvedilol 6.25 MG TAB PO SCH ×2 (08:28→17:19)
[2019-01-08] MEDS: Polyethylene Glycol 3350 17 GM Packet PO SCH (08:29)
[2019-01-08] MEDS: Calcium Carbonate 500 MG ChewTAB PO PRN ×2 (09:27→22:39)
--- NOTE | 2019-01-08 15:17 | PDOC.HOSPP ---
- Subjective Encounter Date: 01/08/19 Subjective: Pt seen says pain getting better with pain meds , Denies nausea vomiting fever , SOB at present - Objective Vital Signs & Weight: Vital Signs (12 hours) Temp Pulse Resp BP BP Pulse Ox 01/08/19 13:33 104 H 16 01/08/19 08:28 115/61 01/08/19 08:06 98.5 F 104 H 16 104/58 L 94 L 01/08/19 08:00 94 L 01/08/19 06:15 98 16 Weight Admit Weight 111 lb Weight 122 lb 14.4 oz I&O: 01/07/19 01/08/19 01/09/19 06:59 06:59 06:59 Intake Total 1480 1025 480 Output Total 1550 1325 Balance -70 -300 480 Result Diagrams: 01/02/19 05:17 01/02/19 05:17 Hospitalist ROS - Review of Systems Constitutional: denies: fever, chills Eyes: denies: pain ENT: denies: ear pain Respiratory: denies: cough Cardiovascular: denies: chest pain Gastrointestinal: denies: nausea Genitourinary: denies: dysuria Musculoskeletal: reports: back pain Skin: denies: rash Neurological: denies: weakness - Medication Medications: Active Medications Generic Name Dose Route Start Last Admin Trade Name Freq PRN Reason Stop Dose Admin Acetaminophen 650 mg 12/26/18 13:27 12/29/18 22:07 Tylenol PO 650 mg Q4H PRN Administration Headache/Fever/Mild Pain (1-3) Hydrocodone Bitart/Acetaminophen 1 tab 12/26/18 16:19 01/08/19 11:11 [place] 10/325 PO 1 tab Q4H PRN Administration Severe Pain (7-10) Albuterol/Ipratropium 3 ml 01/04/19 19:00 01/08/19 13:33 Duoneb NEB 3 ml [id number] REBEKAH Administration Bisacodyl 10 mg 12/27/18 09:00 01/08/19 08:28 Dulcolax [place] Not Given DAILY REBEKAH Calcium Carbonate 1,000 mg 12/26/18 13:27 01/08/19 09:27 Tums PO 1,000 mg Q4H PRN Administration Heartburn or Indigestion Carvedilol 6.25 mg 01/05/19 08:00 01/08/19 08:28 Coreg PO Not Given BID-WM REBEKAH Clonazepam 1 mg 12/26/18 21:00 01/07/19 20:43 Klonopin PO 1 mg Q24HR REBEKAH Administration Enoxaparin Sodium 30 mg 12/31/18 21:00 01/07/19 20:44 Lovenox SC 30 mg 2100 RE[facility] Administration Famotidine 20 mg 12/31/18 09:00 01/08/19 08:27 Pepcid PO 20 mg BID RE[facility] Administration Menthol/Methyl Salicylate 0 gm 12/28/18 18:36 12/29/18 00:27 Muscle Rub Cream (Bengay) TOP 85 gm QID PRN Administration Muscle Pain Morphine Sulfate 4 mg 12/26/18 17:50 01/07/19 15:45 Morphine SLOW IVP 4 mg Q4H PRN Administration Moderate to Severe Pain (6-10) Morphine Sulfate 30 mg 12/28/18 09:00 01/08/19 08:26 Ms Contin PO 30 mg Q12HR REBEKAH Administration Ondansetron HCl 4 mg 12/26/18 13:27 12/29/18 16:37 Zofran Odt PO 4 mg Q6H PRN Administration Nausea/Vomiting Ondansetron HCl 4 mg 12/26/18 13:27 01/04/19 14:34 Zofran IVP 4 mg Q6H PRN Administration Nausea/Vomiting Polyethylene Glycol 17 gm 12/26/18 13:29 12/31/18 21:33 Miralax PO 17 gm DAILY PRN Administration Constipation Polyethylene Glycol 17 gm 01/01/19 09:00 01/08/19 08:29 Miralax PO 17 gm DAILY [facility] Administration Senna/Docusate Sodium 2 tab 12/26/18 21:00 01/08/19 08:28 Senokot S PO 2 tab BID RE[facility] Administration Simethicone 80 mg 12/28/18 20:41 12/29/18 05:54 Mylicon Chewable PO 80 mg PCHS PRN Administration Gas Pain Sodium Chloride 10 ml 01/05/19 09:00 01/08/19 08:29 Flush - Normal Saline IVF 10 ml Q12HR REBEKAH Administration - Exam General Appearance: awake alert Eye: anicteric sclera ENT: normocephalic atraumatic Neck: supple Heart: no murmur Respiratory: CTAB Gastrointestinal: soft, distended Extremities: no cyanosis Neurological: cranial nerve grossly intact Musculoskeletal: normal tone Psychiatric: normal affect Hosp A/P - Plan Breast cancer metastasized to bone invasive adenocarcinoma left breast with prior chemotherapy now with mets to bone on palliative radiation therapy , Pt pain getting better and improving Dyslipidemia Continue statin Chronic anemia currently no active bleeding Compression fracture of T11 vertebra Continue pain meds Hypercalcemia of malignancy improved and stable Physical deconditioning, Continue PT evaluation Plan Discussed with pt , daughter and nursing staff
[2019-01-08] MEDS: Morphine 4 MG/ML VIAL SLOW IVP PRN ×2 (18:36→22:36)
[2019-01-08] MEDS: clonazePAM 1 MG TAB PO SCH (20:23)
[2019-01-08] MEDS: Enoxaparin Sodium 30 MG/0.3 ML SYRINGE SC SCH (20:23)
[2019-01-09] MEDS: HYDROcodone/Acetaminophen 10/325 mg Tablet PO PRN ×5 (01:54→20:58)
[2019-01-09] MEDS: Senokot S 8.6-50 MG TAB PO SCH ×2 (09:54→19:59)
[2019-01-09] MEDS: Carvedilol 6.25 MG TAB PO SCH ×2 (09:54→17:42)
[2019-01-09] MEDS: Famotidine 20 MG TAB PO SCH ×2 (09:54→19:59)
[2019-01-09] MEDS: Morphine ER 30 MG TAB PO SCH ×2 (09:55→20:01)
[2019-01-09] MEDS: Polyethylene Glycol 3350 17 GM Packet PO SCH (09:56)
[2019-01-09] MEDS: Bisacodyl 10 MG SUPP PR SCH (09:57)
[2019-01-09] MEDS ORDERED: Sodium Chloride 0.65% Nasal 44 ML BOT EA NARE PRN (10:06)
[2019-01-09] MEDS ORDERED: Diabetic Tussin 200 MG/10 ML UDCUP PO PRN (10:06)
[2019-01-09] MEDS ORDERED: Loratadine 10 MG TAB PO PRN (10:06)
[2019-01-09] MEDS ORDERED: Artificial Tears 18 DROP/0.9 ML EA EYE PRN (10:06)
[2019-01-09] MEDS ORDERED: Cepastat Lozenges 1 LOZ PO PRN (10:06)
[2019-01-09] MEDS ORDERED: Ibuprofen 200 MG TAB PO PRN (10:06)
[2019-01-09] MEDS ORDERED: Zolpidem Tartrate 5 MG TAB PO PRN (10:06)
[2019-01-09] MEDS ORDERED: Loperamide HCl 2 MG CAP PO PRN (10:06)
--- NOTE | 2019-01-09 10:06 | PDOC.HOSPP ---
- Subjective Encounter Date: 01/09/19 Encounter Time: 07:10 Subjective: Patient seen and examined. pt still has pain but controlled with pain meds, she is very weak, No overnight events - Objective Vital Signs & Weight: Vital Signs (12 hours) Temp Pulse Resp BP Pulse Ox 01/09/19 07:44 105 H 16 92 L 01/09/19 07:40 98.5 F 106 H 18 105/60 92 L 01/09/19 01:17 97 16 92 L 01/08/19 23:27 115/59 L Weight Admit Weight 111 lb Weight 122 lb 14.4 oz I&O: 01/08/19 01/09/19 01/10/19 06:59 06:59 06:59 Intake Total 1025 1620 Output Total 1325 400 Balance -300 1220 Result Diagrams: 01/02/19 05:17 01/02/19 05:17 Hospitalist ROS - Review of Systems Constitutional: reports: weakness, malaise. denies: fever, chills, sweats, other ENT: denies: ear pain, ear discharge, nose pain, nose discharge, nose congestion , mouth pain, mouth swelling, throat pain, throat swelling, other Respiratory: denies: cough, dry, shortness of breath, hemoptysis, SOB with excertion, pleuritic pain, sputum, wheezing, other Cardiovascular: denies: chest pain, palpitations, orthopnea, paroxysmal noc. dyspnea, edema, light headedness, other Gastrointestinal: denies: nausea, vomiting, abdominal pain, diarrhea, constipation, melena, hematochezia, other Genitourinary: denies: dysuria, frequency, incontinence, hematuria, retention, other Musculoskeletal: reports: back pain. denies: neck pain, shoulder pain, arm pain , hand pain, leg pain, foot pain, other - Medication Medications: Active Medications Generic Name Dose Route Start Last Admin Trade Name Freq PRN Reason Stop Dose Admin Acetaminophen 650 mg 12/26/18 13:27 12/29/18 22:07 Tylenol PO 650 mg Q4H PRN Administration Headache/Fever/Mild Pain (1-3) Hydrocodone Bitart/Acetaminophen 1 tab 12/26/18 16:19 01/09/19 09:55 [place] 10/325 PO 1 tab Q4H PRN Administration Severe Pain (7-10) Albuterol/Ipratropium 3 ml 01/04/19 19:00 01/09/19 07:44 Duoneb NEB 3 ml [id number] [facility] Administration Bisacodyl 10 mg 12/27/18 09:00 01/09/19 09:57 Dulcolax [place] Not Given DAILY [facility] Calcium Carbonate 1,000 mg 12/26/18 13:27 01/08/19 22:39 Tums PO 1,000 mg Q4H PRN Administration Heartburn or Indigestion Carvedilol 6.25 mg 01/05/19 08:00 01/09/19 09:54 Coreg PO 6.25 mg BID-WM [facility] Administration Clonazepam 1 mg 12/26/18 21:00 01/08/19 20:23 Klonopin PO 1 mg Q24HR [facility] Administration Enoxaparin Sodium 30 mg 12/31/18 21:00 01/08/19 20:23 Lovenox SC 30 mg 2100 RE[facility]KAH Administration Famotidine 20 mg 12/31/18 09:00 01/09/19 09:54 Pepcid PO 20 mg BID [facility] Administration Menthol/Methyl Salicylate 0 gm 12/28/18 18:36 12/29/18 00:27 Muscle Rub Cream (Bengay) TOP 85 gm QID PRN Administration Muscle Pain Morphine Sulfate 4 mg 12/26/18 17:50 01/08/19 22:36 Morphine SLOW IVP 4 mg Q4H PRN Administration Moderate to Severe Pain (6-10) Morphine Sulfate 30 mg 12/28/18 09:00 01/09/19 09:55 Ms Contin PO 30 mg Q12HR [facility] Administration Ondansetron HCl 4 mg 12/26/18 13:27 12/29/18 16:37 Zofran Odt PO 4 mg Q6H PRN Administration Nausea/Vomiting Ondansetron HCl 4 mg 12/26/18 13:27 01/04/19 14:34 Zofran IVP 4 mg Q6H PRN Administration Nausea/Vomiting Polyethylene Glycol 17 gm 12/26/18 13:29 12/31/18 21:33 Miralax PO 17 gm DAILY PRN Administration Constipation Polyethylene Glycol 17 gm 01/01/19 09:00 01/09/19 09:56 Miralax PO Not Given DAILY [facility] Senna/Docusate Sodium 2 tab 12/26/18 21:00 01/09/19 09:54 Senokot S PO 2 tab BID [facility] Administration Simethicone 80 mg 12/28/18 20:41 12/29/18 05:54 Mylicon Chewable PO 80 mg PCHS PRN Administration Gas Pain Sodium Chloride 10 ml 01/05/19 09:00 01/08/19 20:24 Flush - Normal Saline IVF 10 ml Q12HR [facility] Administration - Exam General Appearance: NAD, awake alert Eye: PERRL, anicteric sclera ENT: normocephalic atraumatic, no oropharyngeal lesions Neck: supple, symmetric, no JVD, no thyromegaly, no lymphadenopathy Heart: RRR, no murmur, no gallops, no rubs, normal peripheral pulses Respiratory: CTAB, no wheezes, no rales, no ronchi Gastrointestinal: soft, non-tender, non-distended, normal bowel sounds, no palpable masses, no hepatomegaly, no guarding, no rigidity Extremities: no cyanosis, no clubbing, no edema Skin: normal turgor, no lesions Neurological: no focal deficits Musculoskeletal: normal tone, normal strength Psychiatric: normal affect, normal behavior Hosp A/P (1) Breast cancer metastasized to bone Code(s): C50.919 - MALIGNANT NEOPLASM OF UNSP SITE OF UNSPECIFIED FEMALE BREAST ; C79.51 - SECONDARY MALIGNANT NEOPLASM OF BONE Status: Acute Qualifiers: Laterality: left Qualified Code(s): C50.912 - Malignant neoplasm of unspecified site of left female breast; C79.51 - Secondary malignant neoplasm of bone (2) Physical deconditioning Code(s): R53.81 - OTHER MALAISE Status: Acute (3) Chronic anemia Code(s): D64.9 - ANEMIA, UNSPECIFIED Status: Chronic (4) Compression fracture of T11 vertebra Code(s): S22.080A - WEDGE COMPRESSION FRACTURE OF T11-T12 VERTEBRA, INIT Status: Chronic Qualifiers: Encounter type: subsequent encounter (5) Dyslipidemia Code(s): E78.5 - HYPERLIPIDEMIA, UNSPECIFIED Status: Chronic (6) Hypercalcemia of malignancy Code(s): E83.52 - HYPERCALCEMIA Status: Resolved - Plan old records reviewed/req, plan discussed w/ family, PT/OT, social media marketing specialist 01/09/19- continue radiation therapy daily till wednesday, pillowcase cleaner to arrange rehab on discharge, will consider discharge when oncology clears and placement arranged, her pain is controlled, overall stable, medication reviewed as above, symptomatic treatment, will repeat labs tomorrow
[2019-01-09] MEDS: Morphine 4 MG/ML VIAL SLOW IVP PRN ×2 (14:42→19:11)
[2019-01-09] MEDS: Ondansetron PF 4 MG/2 ML Vial IVP PRN (14:42)
[2019-01-09] MEDS: clonazePAM 1 MG TAB PO SCH (19:59)
[2019-01-09] MEDS: Enoxaparin Sodium 30 MG/0.3 ML SYRINGE SC SCH (19:59)
[2019-01-09] MEDS: Acetaminophen 325 MG TAB PO PRN (19:59)
[2019-01-10] MEDS: HYDROcodone/Acetaminophen 10/325 mg Tablet PO PRN ×4 (01:06→23:58)
[2019-01-10 05:55] LABS: ALT (SGPT) 26 U/L (8-55); AST (SGOT) 90 U/L (5-34); Albumin 2.5 g/dL (3.4-4.8); Alkaline Phosphatase 213 U/L (40-110); Anion Gap 12 mmol/L (10-20); BUN (Urea Nitrogen) 15 mg/dL (9.8-20.1); Bilirubin, Total 0.8 mg/dL (0.2-1.2); Calc. Creatinine Clearance 74 mL/min (70-130); Calcium 8.4 mg/dL (7.8-10.44); Carbon Dioxide 30 mmol/L (23-31); Chloride 98 mmol/L (98-107); Estimated GFR-MDRD 85; Globulin 2.8 g/dL (2.4-3.5); Glucose 75 mg/dL (80-115); Potassium 3.4 mmol/L (3.5-5.1); Protein, Total 5.3 g/dL (6.0-8.3); Sodium 137 mmol/L (136-145)
[2019-01-10 06:39] LABS: Band 9 % (5-11); Eosinophils 1 % (0-10); Hemoglobin 6.7 g/dL (12.0-16.0); Lymphocytes 22 % (21-51); MDiff Complete? YES; Mean Corpuscular HGB CONC 33.9 g/dL (32.0-36.0); Mean Corpuscular Hemoglobin 31.6 pg (27.0-31.0); Mean Corpuscular Volume 93.2 fL (78.0-98.0); Mean Platelet Volume 7.4 fL (7.4-10.4); Metamyelocyte 2 % (0-0); Monocytes 3 % (0-10); Myelocyte 3 % (0-0); Neutrophil 60 % (42-75); Nucleated RBC 6 % (0); Platelet Count 149 thou/uL (130-400); RBC Distribution Width 17.7 % (11.5-14.5); Red Blood Cell (RBC) Count 2.12 mill/uL (4.20-5.40); White Blood Cell (WBC) Count 13.8 thou/uL (4.8-10.8)
[2019-01-10] MEDS ORDERED: Sodium Chloride 0.9% 500 ML IV SCH (08:30)
[2019-01-10] MEDS: Carvedilol 6.25 MG TAB PO SCH ×2 (08:39→19:05)
[2019-01-10] MEDS: Polyethylene Glycol 3350 17 GM Packet PO SCH (08:41)
[2019-01-10] MEDS: Famotidine 20 MG TAB PO SCH ×2 (08:41→22:10)
[2019-01-10] MEDS: Senokot S 8.6-50 MG TAB PO SCH ×2 (08:41→22:10)
[2019-01-10] MEDS: Potassium Chloride 20 MEQ TAB PO SCH ×2 (08:41→19:05)
[2019-01-10] MEDS: Bisacodyl 10 MG SUPP PR SCH (08:42)
[2019-01-10] MEDS: Morphine ER 30 MG TAB PO SCH ×2 (09:40→22:08)
[2019-01-10] MEDS: Morphine 4 MG/ML VIAL SLOW IVP PRN (10:12)
--- NOTE | 2019-01-10 10:57 | PDOC.HOSPP ---
- Subjective Encounter Date: 01/10/19 Encounter Time: 07:00 Subjective: pt is weak, her BP was low, she was dizzi, her H & H is low, abdomen is bloated - Objective Vital Signs & Weight: Vital Signs (12 hours) Temp Pulse Resp BP BP Pulse Ox 01/10/19 09:19 106 H 112/62 01/10/19 08:39 90/53 L 01/10/19 08:10 98 16 91 L 01/10/19 07:12 98.5 F 97 14 90/53 L 97 01/10/19 06:48 104 H 16 98/55 L 92 L 01/10/19 00:53 99 16 92 L 01/10/19 00:00 98.5 F 107 H 16 100/53 L 93 L Weight Admit Weight 111 lb Weight 122 lb 14.4 oz I&O: 01/09/19 01/10/19 01/11/19 06:59 06:59 06:59 Intake Total 1620 300 Output Total 400 850 Balance 1220 -550 Result Diagrams: 01/10/19 05:16 01/10/19 05:16 Hospitalist ROS - Review of Systems Constitutional: reports: weakness, malaise. denies: fever, chills, sweats, other ENT: denies: ear pain, ear discharge, nose pain, nose discharge, nose congestion , mouth pain, mouth swelling, throat pain, throat swelling, other Respiratory: denies: cough, dry, shortness of breath, hemoptysis, SOB with excertion, pleuritic pain, sputum, wheezing, other Cardiovascular: denies: chest pain, palpitations, orthopnea, paroxysmal noc. dyspnea, edema, light headedness, other Gastrointestinal: denies: nausea, vomiting, abdominal pain, diarrhea, constipation, melena, hematochezia, other Genitourinary: denies: dysuria, frequency, incontinence, hematuria, retention, other Musculoskeletal: reports: back pain. denies: neck pain, shoulder pain, arm pain , hand pain, leg pain, foot pain, other Skin: denies: rash, lesions, shanta, bruising, other - Medication Medications: Active Medications Generic Name Dose Route Start Last Admin Trade Name Freq PRN Reason Stop Dose Admin Acetaminophen 650 mg 12/26/18 13:27 01/09/19 19:59 Tylenol PO 650 mg Q4H PRN Administration Headache/Fever/Mild Pain (1-3) Hydrocodone Bitart/Acetaminophen 1 tab 12/26/18 16:19 01/10/19 05:14 [place] 10/325 PO 1 tab Q4H PRN Administration Severe Pain (7-10) Albuterol/Ipratropium 3 ml 01/04/19 19:00 01/10/19 08:10 Duoneb NEB Not Given [id number] [facility] Bisacodyl 10 mg 12/27/18 09:00 01/10/19 08:42 Dulcolax [place] Not Given DAILY [facility] Calcium Carbonate 1,000 mg 12/26/18 13:27 01/08/19 22:39 Tums PO 1,000 mg Q4H PRN Administration Heartburn or Indigestion Carvedilol 6.25 mg 01/05/19 08:00 01/10/19 08:39 Coreg PO Not Given BID-WM [facility] Clonazepam 1 mg 12/26/18 21:00 01/09/19 19:59 Klonopin PO 1 mg Q24HR [facility] Administration Enoxaparin Sodium 30 mg 12/31/18 21:00 01/09/19 19:59 Lovenox SC 30 mg 2100 RE[facility] Administration Famotidine 20 mg 12/31/18 09:00 01/10/19 08:41 Pepcid PO 20 mg BID [facility] Administration Menthol/Methyl Salicylate 0 gm 12/28/18 18:36 12/29/18 00:27 Muscle Rub Cream (Bengay) TOP 85 gm QID PRN Administration Muscle Pain Morphine Sulfate 4 mg 12/26/18 17:50 01/10/19 10:12 Morphine SLOW IVP 4 mg Q4H PRN Administration Moderate to Severe Pain (6-10) Morphine Sulfate 30 mg 12/28/18 09:00 01/10/19 09:40 Ms Contin PO 30 mg Q12HR [facility] Administration Ondansetron HCl 4 mg 12/26/18 13:27 12/29/18 16:37 Zofran Odt PO 4 mg Q6H PRN Administration Nausea/Vomiting Ondansetron HCl 4 mg 12/26/18 13:27 01/09/19 14:42 Zofran IVP 4 mg Q6H PRN Administration Nausea/Vomiting Polyethylene Glycol 17 gm 01/01/19 09:00 01/10/19 08:41 Miralax PO 17 gm DAILY [facility] Administration Potassium Chloride 40 meq 01/10/19 08:00 01/10/19 08:41 K-Dur PO 40 meq BID-WM [facility] Administration Senna/Docusate Sodium 2 tab 12/26/18 21:00 01/10/19 08:41 Senokot S PO 2 tab BID [facility] Administration Simethicone 80 mg 12/28/18 20:41 12/29/18 05:54 Mylicon Chewable PO 80 mg PCHS PRN Administration Gas Pain Sodium Chloride 10 ml 01/05/19 09:00 01/10/19 08:42 Flush - Normal Saline IVF 10 ml Q12HR [facility] Administration Sodium Chloride 10 ml 01/05/19 07:59 01/09/19 19:13 Flush - Normal Saline IVF 10 ml PRN PRN Administration Saline Flush - Exam General Appearance: NAD, awake alert Eye: PERRL, anicteric sclera ENT: normocephalic atraumatic, no oropharyngeal lesions Neck: supple, symmetric, no JVD, no thyromegaly Heart: RRR, no murmur, no gallops, no rubs Respiratory: CTAB, no wheezes, no rales, no ronchi Gastrointestinal: soft, non-tender, non-distended, normal bowel sounds Extremities: no cyanosis, no clubbing Skin: normal turgor, no lesions Neurological: no focal deficits Musculoskeletal: normal tone, normal strength Psychiatric: normal affect, normal behavior Hosp A/P (1) Breast cancer metastasized to bone Code(s): C50.919 - MALIGNANT NEOPLASM OF UNSP SITE OF UNSPECIFIED FEMALE BREAST ; C79.51 - SECONDARY MALIGNANT NEOPLASM OF BONE Status: Acute Qualifiers: Laterality: left Qualified Code(s): C50.912 - Malignant neoplasm of unspecified site of left female breast; C79.51 - Secondary malignant neoplasm of bone (2) Physical deconditioning Code(s): R53.81 - Status: Acute (3) Chronic anemia Code(s): D64.9 - ANEMIA, UNSPECIFIED Status: Chronic (4) Compression fracture of T11 vertebra Code(s): S22.080A - Status: Chronic Qualifiers: Encounter type: subsequent encounter (5) Dyslipidemia Code(s): E78.5 - HYPERLIPIDEMIA, UNSPECIFIED Status: Chronic (6) Hypercalcemia of malignancy Code(s): E83.52 - HYPERCALCEMIA Status: Resolved - Plan old records reviewed/req, plan discussed w/ family 01/09/19- continue radiation therapy daily till wednesday, leather case finisher to arrange rehab on discharge, will consider discharge when oncology clears and placement arranged, her pain is controlled, overall stable, medication reviewed as above, symptomatic treatment, will repeat labs tomorrow 01/10/19- will hold BP meds for low BP <120 SBP, give 500 ml NS bolus one time, transfuse 1 unit PRBC for symptomatic anemia, repeat labs tomorrow, replace potassium, discussed with family, medication reviewed as above, symptomatic treatment, tomorrow last radiation therapy, will need placement
--- NOTE | 2019-01-10 17:07 | PDOC.MOPN ---
Interval History: Completes radiation tomorrow. Agrees to rehab consult. - Vital Signs Vital Signs: Vital Signs (12 hours) Temp Pulse Pulse Resp BP BP BP 01/10/19 15:33 99.8 F H 113 H 16 102/56 L 01/10/19 15:03 99.6 F 114 H 16 108/57 L 01/10/19 14:04 96 16 01/10/19 11:23 99.6 F 112 H 16 112/56 L 01/10/19 09:19 106 H 112/62 01/10/19 08:39 90/53 L 01/10/19 08:10 98 16 01/10/19 08:00 01/10/19 07:12 98.5 F 97 14 90/53 L 01/10/19 06:48 104 H 16 98/55 L Pulse Ox 01/10/19 15:33 95 01/10/19 15:03 94 L 01/10/19 14:04 93 L 01/10/19 11:23 97 01/10/19 09:19 01/10/19 08:39 01/10/19 08:10 91 L 01/10/19 08:00 97 01/10/19 07:12 97 01/10/19 06:48 92 L Weight Admit Weight 111 lb Weight 122 lb 14.4 oz - Physical Exam General: Alert, Oriented x3, No acute distress HEENT: Atraumatic, PERRLA, EOMI, Mucous membr. moist/pink Lungs: Clear to auscultation, Normal air movement Cardiovascular: Regular rate, Normal S1, Normal S2, No murmurs, Gallops, Rubs Abdomen: Normal bowel sounds, Soft, No tenderness, No hepatospenomegaly, No masses Extremities: No clubbing, No cyanosis, No edema, Normal pulses, No tenderness/ swelling Skin: No rashes, No breakdown, No significant lesion Neurological: Normal speech, Strength at 5/5 X4 ext, Normal tone, Sensation intact, Cranial nerves 3-12 NL, Reflexes 2+ Psych/Mental Status: Mental status NL, Mood NL - Labs Result Diagrams: 01/10/19 05:16 01/10/19 05:16 Lab results: Laboratory Results - last 24 hr 01/10/19 08:37: Blood Type A POSITIVE, Antibody Screen Cancelled, Ab Screen Tube Method NEGATIVE, Crossmatch See Detail 01/10/19 05:30: Magnesium 1.8 01/10/19 05:16: WBC 13.8 H, RBC 2.12 L, Hgb 6.7 L, Hct 19.7 L, MCV 93.2, MCH 31.6 H, MCHC 33.9, RDW 17.7 H, Plt Count 149, MPV 7.4, Neutrophils % (Manual) 60 , Band Neuts % (Manual) 9, Lymphocytes % (Manual) 22, Monocytes % (Manual) 3, Eosinophils % (Manual) 1, Metamyelocytes % (Man) 2 H, Myelocytes % 3 H, Nucleated RBCs # (Man) 6 H 01/10/19 05:16: Sodium 137, Potassium 3.4 L, Chloride 98, Carbon Dioxide 30, Anion Gap 12, BUN 15, Creatinine 0.70, Estimated GFR (MDRD) 85, Glucose 75 L, Calcium 8.4, Total Bilirubin 0.8, AST 90 H, ALT 26, Alkaline Phosphatase 213 H, Serum Total Protein 5.3 L, Albumin 2.5 L, Globulin 2.8, Albumin/Globulin Ratio 0.9 L Status: lab reviewed by me A/P - Problem (1) Breast cancer metastasized to bone Current Visit: Yes Code(s): C50.919 - MALIGNANT NEOPLASM OF UNSP SITE OF UNSPECIFIED FEMALE BREAST; C79.51 - SECONDARY MALIGNANT NEOPLASM OF BONE Status: Acute Qualifiers: Laterality: left Qualified Code(s): C50.912 - Malignant neoplasm of unspecified site of left female breast; C79.51 - Secondary malignant neoplasm of bone (2) Bone metastases Current Visit: Yes Code(s): C79.51 - SECONDARY MALIGNANT NEOPLASM OF BONE Status: Acute (3) Hypercalcemia of malignancy Current Visit: Yes Code(s): E83.52 - HYPERCALCEMIA Status: Resolved - Plan Plan: Transfuse today CBC in am continue pain management Rehab consult.
[2019-01-10] MEDS: clonazePAM 1 MG TAB PO SCH (22:09)
[2019-01-10] MEDS: Enoxaparin Sodium 30 MG/0.3 ML SYRINGE SC SCH (22:11)
[2019-01-11] MEDS: HYDROcodone/Acetaminophen 10/325 mg Tablet PO PRN ×3 (04:13→15:54)
[2019-01-11] MEDS ORDERED: Activase 2 MG VIAL CATH SCH (05:00)
[2019-01-11] MEDS ORDERED: Sterile Water 10 ML VIAL IVP SCH (05:00)
[2019-01-11] MEDS: Senokot S 8.6-50 MG TAB PO SCH ×2 (08:21→22:25)
[2019-01-11] MEDS: Bisacodyl 10 MG SUPP PR SCH (08:24)
[2019-01-11] MEDS: Potassium Chloride 20 MEQ TAB PO SCH ×2 (08:24→17:34)
[2019-01-11] MEDS: Polyethylene Glycol 3350 17 GM Packet PO SCH (08:25)
[2019-01-11] MEDS: Famotidine 20 MG TAB PO SCH ×2 (08:25→22:27)
[2019-01-11] MEDS: Carvedilol 6.25 MG TAB PO SCH ×2 (08:26→17:35)
[2019-01-11] MEDS: Morphine ER 30 MG TAB PO SCH ×2 (08:29→22:27)
[2019-01-11 10:01] LABS: Hemoglobin 9.1 g/dL (12.0-16.0); Mean Corpuscular HGB CONC 34.4 g/dL (32.0-36.0); Mean Corpuscular Volume 90.1 fL (78.0-98.0); Mean Platelet Volume 7.3 fL (7.4-10.4); Platelet Count 156 thou/uL (130-400); RBC Distribution Width 16.7 % (11.5-14.5); Red Blood Cell (RBC) Count 2.94 mill/uL (4.20-5.40); White Blood Cell (WBC) Count 13.2 thou/uL (4.8-10.8)
[2019-01-11] MEDS: Morphine 4 MG/ML VIAL SLOW IVP PRN ×2 (10:17→22:28)
[2019-01-11 10:38] LABS: Anion Gap 12 mmol/L (10-20); BUN (Urea Nitrogen) 13 mg/dL (9.8-20.1); Calc. Creatinine Clearance 85 mL/min (70-130); Calcium 8.8 mg/dL (7.8-10.44); Carbon Dioxide 29 mmol/L (23-31); Chloride 102 mmol/L (98-107); Estimated GFR-MDRD Greater than 90; Glucose 107 mg/dL (80-115); Potassium 4.5 mmol/L (3.5-5.1); Sodium 138 mmol/L (136-145)
[2019-01-11 11:09] LABS: Band 11 % (5-11); Eosinophils 1 % (0-10); Lymphocytes 13 % (21-51); MDiff Complete? YES; Metamyelocyte 4 % (0-0); Monocytes 10 % (0-10); Neutrophil 61 % (42-75); Nucleated RBC 7 % (0); Platelet Morphology Comment Appears Adequate; Polychromasia MODERATE = 3-4 cells (100X) (0-2/hpf)
[2019-01-11] MEDS ORDERED: Lidocaine Viscous Sol 2% 15 ml UD Cup SSW SCH (11:30)
--- NOTE | 2019-01-11 14:23 | PDOC.HOSPP ---
- Subjective Encounter Date: 01/11/19 Encounter Time: 14:22 Subjective: feels tired - Objective Vital Signs & Weight: Vital Signs (12 hours) Temp Pulse Resp BP BP Pulse Ox 01/11/19 13:59 108 H 15 01/11/19 12:19 98.4 F 108 H 18 135/70 95 01/11/19 08:30 98.1 F 115 H 18 95 01/11/19 08:26 136/69 01/11/19 08:06 108 H 15 01/11/19 07:28 95 Weight Admit Weight 111 lb Weight 122 lb 14.4 oz I&O: 01/10/19 01/11/19 01/12/19 06:59 06:59 06:59 Intake Total 300 1430 Output Total 850 250 Balance -550 1180 Result Diagrams: 01/11/19 09:39 01/11/19 09:39 Hospitalist ROS - Medication Medications: Active Medications Generic Name Dose Route Start Last Admin Trade Name Freq PRN Reason Stop Dose Admin Acetaminophen 650 mg 12/26/18 13:27 01/09/19 19:59 Tylenol PO 650 mg Q4H PRN Administration Headache/Fever/Mild Pain (1-3) Hydrocodone Bitart/Acetaminophen 1 tab 12/26/18 16:19 01/11/19 08:19 [place] 10/325 PO 1 tab Q4H PRN Administration Severe Pain (7-10) Albuterol/Ipratropium 3 ml 01/04/19 19:00 01/11/19 13:59 Duoneb NEB 3 ml [id number] REBEKAH Administration Bisacodyl 10 mg 12/27/18 09:00 01/11/19 08:24 Dulcolax [place] Not Given DAILY [facility] Calcium Carbonate 1,000 mg 12/26/18 13:27 01/08/19 22:39 Tums PO 1,000 mg Q4H PRN Administration Heartburn or Indigestion Carvedilol 6.25 mg 01/05/19 08:00 01/11/19 08:26 Coreg PO 6.25 mg BID-WM [facility] Administration Clonazepam 1 mg 12/26/18 21:00 01/10/19 22:09 Klonopin PO 1 mg Q24HR [facility] Administration Enoxaparin Sodium 30 mg 12/31/18 21:00 01/10/19 22:11 Lovenox SC 30 mg 2100 REBEKAH Administration Famotidine 20 mg 12/31/18 09:00 01/11/19 08:25 Pepcid PO 20 mg BID [facility] Administration Ibuprofen 400 mg 01/09/19 10:06 01/10/19 19:57 Motrin PO 400 mg Q4H PRN Administration Fever > 101 Menthol/Methyl Salicylate 0 gm 12/28/18 18:36 12/29/18 00:27 Muscle Rub Cream (Bengay) TOP 85 gm QID PRN Administration Muscle Pain Morphine Sulfate 4 mg 12/26/18 17:50 01/11/19 10:17 Morphine SLOW IVP 4 mg Q4H PRN Administration Moderate to Severe Pain (6-10) Morphine Sulfate 30 mg 12/28/18 09:00 01/11/19 08:29 Ms Contin PO Not Given Q12HR [facility] Ondansetron HCl 4 mg 12/26/18 13:27 12/29/18 16:37 Zofran Odt PO 4 mg Q6H PRN Administration Nausea/Vomiting Ondansetron HCl 4 mg 12/26/18 13:27 01/09/19 14:42 Zofran IVP 4 mg Q6H PRN Administration Nausea/Vomiting Polyethylene Glycol 17 gm 01/01/19 09:00 01/11/19 08:25 Miralax PO Not Given DAILY [facility] Potassium Chloride 40 meq 01/10/19 08:00 01/11/19 08:24 K-Dur PO 40 meq BID-WM [facility] Administration Senna/Docusate Sodium 2 tab 12/26/18 21:00 01/11/19 08:21 Senokot S PO Not Given BID [facility] Simethicone 80 mg 12/28/18 20:41 12/29/18 05:54 Mylicon Chewable PO 80 mg PCHS PRN Administration Gas Pain Sodium Chloride 10 ml 01/05/19 09:00 01/11/19 08:26 Flush - Normal Saline IVF 10 ml Q12HR [facility] Administration - Exam General Appearance: NAD, awake alert, ill appearing Eye: PERRL, anicteric sclera, scleral icterus Neck: supple, symmetric, no JVD, no thyromegaly, no lymphadenopathy, no carotid bruit, JVD Heart: RRR, no murmur, no gallops, no rubs, normal peripheral pulses, irregular , diminshed peripheral pulses, murmur present, II/IV, III/IV Respiratory: CTAB, no wheezes, no rales, no ronchi, normal chest expansion, no tachypnea, normal percussion, rales, rhonchi, tachypneic, wheezes Gastrointestinal: soft, non-tender, non-distended, normal bowel sounds, no palpable masses, no hepatomegaly, no splenomegaly, no bruit, no guarding, no rigidity, tender to palpation, distended, diminished bowl sounds, voluntary guarding Extremities: no cyanosis, no clubbing, no edema, 1+ LE edema, 2+ LE edema, clubbing Hosp A/P (1) Bone metastases Code(s): C79.51 - SECONDARY MALIGNANT NEOPLASM OF BONE Status: Acute (2) Chronic anemia Code(s): D64.9 - ANEMIA, UNSPECIFIED Status: Chronic - Plan await rehab placement
[2019-01-11] MEDS: LIDOCAINE 2% SSW SCH ×2 (17:35→22:43)
[2019-01-11] MEDS: VISCOUS SSW SCH ×2 (17:35→22:43)
[2019-01-11] MEDS: ALUMINUM SSW SCH ×2 (17:35→22:43)
[2019-01-11] MEDS: [UNRECOGNIZED DRUG - OTHER] SSW SCH ×2 (17:35→22:43)
[2019-01-11] MEDS: MAGNESIUM HYDROXIDE SSW SCH ×2 (17:35→22:43)
[2019-01-11] MEDS: clonazePAM 1 MG TAB PO SCH (22:26)
[2019-01-11] MEDS: Enoxaparin Sodium 30 MG/0.3 ML SYRINGE SC SCH (22:28)
[2019-01-11] MEDS ORDERED: Sodium Chloride 0.9% 250 ML IV SCH (23:45)
[2019-01-12] MEDS: HYDROcodone/Acetaminophen 10/325 mg Tablet PO PRN ×3 (06:22→16:41)
[2019-01-12] MEDS: Morphine ER 30 MG TAB PO SCH ×2 (08:27→20:06)
[2019-01-12] MEDS: Bisacodyl 10 MG SUPP PR SCH (08:31)
[2019-01-12] MEDS: Famotidine 20 MG TAB PO SCH ×2 (08:31→20:07)
[2019-01-12] MEDS: Carvedilol 6.25 MG TAB PO SCH ×2 (08:31→16:40)
[2019-01-12] MEDS: Potassium Chloride 20 MEQ TAB PO SCH ×2 (08:32→16:40)
[2019-01-12] MEDS: Senokot S 8.6-50 MG TAB PO SCH ×2 (08:33→20:07)
[2019-01-12] MEDS: Polyethylene Glycol 3350 17 GM Packet PO SCH (08:43)
[2019-01-12] MEDS: VISCOUS SSW SCH ×4 (09:40→20:08)
[2019-01-12] MEDS: ALUMINUM SSW SCH ×4 (09:40→20:08)
[2019-01-12] MEDS: [UNRECOGNIZED DRUG - OTHER] SSW SCH ×4 (09:40→20:08)
[2019-01-12] MEDS: MAGNESIUM HYDROXIDE SSW SCH ×4 (09:40→20:08)
[2019-01-12] MEDS: LIDOCAINE 2% SSW SCH ×4 (09:40→20:08)
--- NOTE | 2019-01-12 11:56 | PDOC.HOSPP ---
- Subjective Encounter Date: 01/12/19 Encounter Time: 11:55 Subjective: No new complaints - Objective Vital Signs & Weight: Vital Signs (12 hours) Temp Pulse Resp BP BP Pulse Ox 01/12/19 09:20 97.7 F 110 H 16 108/55 L 98 01/12/19 08:31 111/60 01/12/19 07:49 95 01/12/19 07:48 116 H 18 95 01/12/19 03:42 97.8 F 104 H 16 104/58 L 98 01/12/19 00:39 101 H 14 97/54 L 01/12/19 00:13 12 Weight Admit Weight 111 lb Weight 122 lb 14.4 oz I&O: 01/11/19 01/12/19 01/13/19 06:59 06:59 06:59 Intake Total 1430 1480 Output Total 250 Balance 1180 1480 Result Diagrams: 01/11/19 09:39 01/11/19 09:39 Hospitalist ROS - Medication Medications: Active Medications Generic Name Dose Route Start Last Admin Trade Name Freq PRN Reason Stop Dose Admin Acetaminophen 650 mg 12/26/18 13:27 01/09/19 19:59 Tylenol PO 650 mg Q4H PRN Administration Headache/Fever/Mild Pain (1-3) Hydrocodone Bitart/Acetaminophen 1 tab 12/26/18 16:19 01/12/19 06:22 [place] 10/325 PO 1 tab Q4H PRN Administration Severe Pain (7-10) Albuterol/Ipratropium 3 ml 01/04/19 19:00 01/12/19 07:48 Duoneb NEB 3 ml [id number] REBEK[facility] Administration Bisacodyl 10 mg 12/27/18 09:00 01/12/19 08:31 Dulcolax [place] Not Given DAILY [facility] Calcium Carbonate 1,000 mg 12/26/18 13:27 01/08/19 22:39 Tums PO 1,000 mg Q4H PRN Administration Heartburn or Indigestion Carvedilol 6.25 mg 01/05/19 08:00 01/12/19 08:31 Coreg PO 6.25 mg BID-WM [facility] Administration Clonazepam 1 mg 12/26/18 21:00 01/11/19 22:26 Klonopin PO 1 mg Q24HR [facility] Administration Lidocaine HCl 15 ml/ Al 0 ml 10/02/19 17:00 01/12/19 09:40 Hydroxide/Mg Hydroxide 15 ml/ SSW 5 el Diphenhydramine HCl 37.5 mg ACHS [facility] Administration Enoxaparin Sodium 30 mg 12/31/18 21:00 01/11/19 22:28 Lovenox SC 30 mg 2100 REBEKAH Administration Famotidine 20 mg 12/31/18 09:00 01/12/19 08:31 Pepcid PO 20 mg BID [facility] Administration Ibuprofen 400 mg 01/09/19 10:06 01/10/19 19:57 Motrin PO 400 mg Q4H PRN Administration Fever > 101 Menthol/Methyl Salicylate 0 gm 12/28/18 18:36 12/29/18 00:27 Muscle Rub Cream (Bengay) TOP 85 gm QID PRN Administration Muscle Pain Morphine Sulfate 4 mg 12/26/18 17:50 01/11/19 22:28 Morphine SLOW IVP 4 mg Q4H PRN Administration Moderate to Severe Pain (6-10) Morphine Sulfate 30 mg 12/28/18 09:00 01/12/19 08:27 Ms Contin PO 30 mg Q12HR [facility] Administration Ondansetron HCl 4 mg 12/26/18 13:27 12/29/18 16:37 Zofran Odt PO 4 mg Q6H PRN Administration Nausea/Vomiting Ondansetron HCl 4 mg 12/26/18 13:27 01/09/19 14:42 Zofran IVP 4 mg Q6H PRN Administration Nausea/Vomiting Polyethylene Glycol 17 gm 01/01/19 09:00 01/12/19 08:43 Miralax PO Not Given DAILY [facility] Potassium Chloride 40 meq 01/10/19 08:00 01/12/19 08:32 K-Dur PO 40 meq BID-WM [facility] Administration Senna/Docusate Sodium 2 tab 12/26/18 21:00 01/12/19 08:33 Senokot S PO 2 tab BID [facility] Administration Simethicone 80 mg 12/28/18 20:41 12/29/18 05:54 Mylicon Chewable PO 80 mg PCHS PRN Administration Gas Pain Sodium Chloride 10 ml 01/05/19 09:00 01/12/19 08:27 Flush - Normal Saline IVF 10 ml Q12HR [facility] Administration - Exam General Appearance: NAD, awake alert, ill appearing Eye: PERRL, anicteric sclera, scleral icterus ENT: normocephalic atraumatic, no oropharyngeal lesions, moist mucosa, dry oral mucosa Neck: supple, symmetric, no JVD, no thyromegaly, no lymphadenopathy, no carotid bruit, JVD Heart: RRR, no murmur, no gallops, no rubs, normal peripheral pulses, irregular , diminshed peripheral pulses, murmur present, II/IV, III/IV Respiratory: CTAB, no wheezes, no rales, no ronchi, normal chest expansion, no tachypnea, normal percussion, rales, rhonchi, tachypneic, wheezes Gastrointestinal: soft, non-tender, non-distended, normal bowel sounds, no palpable masses, no hepatomegaly, no splenomegaly, no bruit, no guarding, no rigidity, tender to palpation, distended, diminished bowl sounds, voluntary guarding Extremities: no cyanosis, no clubbing, no edema, 1+ LE edema, 2+ LE edema, clubbing Hosp A/P (1) Bone metastases Code(s): C79.51 - SECONDARY MALIGNANT NEOPLASM OF BONE Status: Acute (2) Chronic anemia Code(s): D64.9 - ANEMIA, UNSPECIFIED Status: Chronic - Plan await rehab placement, insurance aproval pending. Case management has been working.
--- NOTE | 2019-01-12 16:37 | PDOC.MOPN ---
Interval History: Pt feeling better, pain improved but still present. She is able to walk very short distances without the brace but has difficulty putting it on and says it doesn't fit correctly. Her appetite is very poor, not eating or drinking very much fluid. She has not been cooperating with PT. She is planned for discharge to rehab. I spoke with her and her for 3 minutes regarding her sx's and future care of plan. I will start her on Remeron for appetite stimulation, encouraged her to increase her PO intake. She will need to gaine her strength back at rehab and then will consider initiating chemotherapy at discharge. - Vital Signs Vital Signs: Vital Signs (12 hours) Temp Pulse Resp BP BP Pulse Ox 01/12/19 13:50 101 H 16 97 01/12/19 09:20 97.7 F 110 H 16 108/55 L 98 01/12/19 08:31 111/60 01/12/19 07:49 95 01/12/19 07:48 116 H 18 95 Weight Admit Weight 111 lb Weight 122 lb 14.4 oz - Physical Exam General: Alert, Other (appears confused at times) HEENT: EOMI Lungs: Normal air movement Cardiovascular: Regular rate, Normal S1, Normal S2 Abdomen: Soft, No tenderness Neurological: Cranial nerves 3-12 NL - Labs Result Diagrams: 01/11/19 09:39 01/11/19 09:39 A/P - Problem (1) Hypercalcemia of malignancy Current Visit: Yes Code(s): E83.52 - HYPERCALCEMIA Status: Resolved (2) Bone metastases Current Visit: Yes Code(s): C79.51 - SECONDARY MALIGNANT NEOPLASM OF BONE Status: Acute - Plan Plan: cont PT start Remeron 15 mg qhs encourage PO intake dc ro rehab once accepted f/u with me in clinic after rehab for Zometa and to start chemotherapy
[2019-01-12] MEDS: clonazePAM 1 MG TAB PO SCH (20:07)
[2019-01-12] MEDS: Enoxaparin Sodium 30 MG/0.3 ML SYRINGE SC SCH (20:07)
[2019-01-12] MEDS: Mirtazapine 15 MG TAB PO SCH (20:07)
[2019-01-12] MEDS: Morphine 4 MG/ML VIAL SLOW IVP PRN (23:06)
[2019-01-13] MEDS: Morphine ER 30 MG TAB PO SCH ×2 (08:30→20:43)
[2019-01-13] MEDS: HYDROcodone/Acetaminophen 10/325 mg Tablet PO PRN ×3 (08:31→20:45)
[2019-01-13] MEDS: Carvedilol 6.25 MG TAB PO SCH (08:32)
[2019-01-13] MEDS: [UNRECOGNIZED DRUG - OTHER] SSW SCH ×4 (08:33→20:52)
[2019-01-13] MEDS ORDERED: Carvedilol 6.25 MG TAB PO SCH (08:33)
[2019-01-13] MEDS: LIDOCAINE 2% SSW SCH ×4 (08:33→20:52)
[2019-01-13] MEDS: VISCOUS SSW SCH ×4 (08:33→20:52)
[2019-01-13] MEDS: ALUMINUM SSW SCH ×4 (08:33→20:52)
[2019-01-13] MEDS: MAGNESIUM HYDROXIDE SSW SCH ×4 (08:33→20:52)
[2019-01-13] MEDS: Senokot S 8.6-50 MG TAB PO SCH ×2 (08:34→20:43)
[2019-01-13] MEDS: Potassium Chloride 20 MEQ TAB PO SCH ×2 (08:39→17:58)
[2019-01-13] MEDS: Bisacodyl 10 MG SUPP PR SCH (08:39)
[2019-01-13] MEDS: Polyethylene Glycol 3350 17 GM Packet PO SCH (08:39)
[2019-01-13] MEDS: Famotidine 20 MG TAB PO SCH ×2 (08:45→20:43)
[2019-01-13] MEDS ORDERED: Carvedilol 3.125 MG TAB PO SCH (08:45)
[2019-01-13 09:51] LABS: Anisocytosis SLIGHT = 6-15 cells (100X) (0-5/hpf); Band 3 % (5-11); Eosinophils 3 % (0-10); Hemoglobin 9.4 g/dL (12.0-16.0); Lymphocytes 38 % (21-51); MDiff Complete? YES; Mean Corpuscular HGB CONC 34.2 g/dL (32.0-36.0); Mean Corpuscular Hemoglobin 32.1 pg (27.0-31.0); Mean Corpuscular Volume 93.8 fL (78.0-98.0); Mean Platelet Volume 7.4 fL (7.4-10.4); Monocytes 3 % (0-10); Neutrophil 53 % (42-75); Nucleated RBC 5 % (0); Platelet Count 155 thou/uL (130-400); Platelet Morphology Comment Appears Adequate; RBC Distribution Width 17.5 % (11.5-14.5); Red Blood Cell (RBC) Count 2.91 mill/uL (4.20-5.40); White Blood Cell (WBC) Count 9.7 thou/uL (4.8-10.8)
[2019-01-13 09:54] LABS: ALT (SGPT) 24 U/L (8-55); AST (SGOT) 86 U/L (5-34); Albumin 2.7 g/dL (3.4-4.8); Alkaline Phosphatase 262 U/L (40-110); Anion Gap 11 mmol/L (10-20); BUN (Urea Nitrogen) 8 mg/dL (9.8-20.1); Bilirubin, Total 0.7 mg/dL (0.2-1.2); Calc. Creatinine Clearance 78 mL/min (70-130); Calcium 8.9 mg/dL (7.8-10.44); Carbon Dioxide 26 mmol/L (23-31); Chloride 105 mmol/L (98-107); Estimated GFR-MDRD 89; Globulin 2.9 g/dL (2.4-3.5); Glucose 102 mg/dL (80-115); Potassium 4.9 mmol/L (3.5-5.1); Protein, Total 5.6 g/dL (6.0-8.3); Sodium 137 mmol/L (136-145)
[2019-01-13] MEDS: Morphine 4 MG/ML VIAL SLOW IVP PRN (11:13)
--- NOTE | 2019-01-13 11:59 | PDOC.PALCO ---
Palliative Care Consult - Consult Details Requesting Physician: Dr Marin Reason for Consult: goals of care, family support Family Members Present: - Pertinent HPI 63 year old female with history of breast cancer who has lytic lesion to the bones. Has been at the hospital receiving radiation and Palliative Care consult for goals of care and family support. - Pertinent PMH Breast Cancer, cholecystectomy, hysterectomy - Social History Smoking Status: Never smoker Smoking: no tobacco exposure Alcohol Use: none Drug Use History: none Living Situation: - Medications MAR Reviewed: Yes - Allergies Allergies/Adverse Reactions: Allergies Allergy/AdvReac Type Severity Reaction Status Date / Time No Known Allergies Allergy Verified 12/23/18 12:18 - Subjective Complains of pain to right scapula, dry mouth. States continues with fatigue and poor appetite ROS: 10 point review otherwise negative at time of assessment - Objective Vital Signs: Vital Signs - Most Recent Temp Pulse Resp BP Pulse Ox 99.7 F H 117 H 16 111/60 99 01/13/19 08:15 01/13/19 08:15 01/13/19 08:15 01/13/19 08:32 01/13/19 08:15 Palliative Performance Scale: 40 - Physical Exam Constitutional: mild distress Deviation from normal: emaciated HEENT: PERRLA, moist MMs, EOMI Deviation from normal: slightly dry oral membranes Respiratory: no wheezing Deviation from normal: diminished to bases Cardiovascular: RRR, no significant murmur Musculoskeletal: pulses present Neurological: moves all 4 limbs Deviation from normal: flat affect Skin: cap refill <2 seconds Deviation from normal: fair turgor - Problem List (1) Palliative care encounter Code(s): Z51.5 - ENCOUNTER FOR PALLIATIVE CARE Current Visit: Yes Status: Acute (2) Bone metastases Code(s): C79.51 - SECONDARY MALIGNANT NEOPLASM OF BONE Current Visit: Yes Status: Acute (3) Breast cancer metastasized to bone Code(s): C50.919 - MALIGNANT NEOPLASM OF UNSP SITE OF UNSPECIFIED FEMALE BREAST ; C79.51 - SECONDARY MALIGNANT NEOPLASM OF BONE Current Visit: Yes Status: Acute Qualifiers: Laterality: left Qualified Code(s): C50.912 - Malignant neoplasm of unspecified site of left female breast; C79.51 - Secondary malignant neoplasm of bone (4) Physical deconditioning Code(s): R53.81 - OTHER MALAISE Current Visit: Yes Status: Acute - Plan/Recommendations Plan: Initiated contact, patient in pain so conversation was limited. Leslie RN for Oncology states patient just received medication for pain. Will reassess for optimal management and therapeutic effect. Introduced palliative care to and that we would assist with goals of care for patient. [40] minutes spent on this encounter with >50% of the time in counseling and coordination of care. Thank you for this very appropriate consult.
[2019-01-13] MEDS ORDERED: Gadobenate Dimeglumine 529 MG/1 ML (20ML VIAL) ONE (13:00)
--- NOTE | 2019-01-13 16:11 | MRI ---
MRI Brain W WO Con: 01/13/2019 10:18 AM CLINICAL HISTORY: Metastatic breast cancer. COMPARISON: None. FINDINGS: Extra axial spaces: Normal in size and morphology for the patient's age. Acute infarction: None. Ventricular system: Normal in size and morphology for the patient's age. Basal cisterns: Normal. Cerebral parenchyma: Normal. Midline shift: None. Cerebellum: Normal. Brainstem: Normal. Paranasal sinuses:Scattered mucosal thickening. There is mild right mastoid fluid. Intraaxial Enhancement: Subtle blush of enhancement is present within the stuart, centrally and anterio rly. There is diffuse heterogeneous signal of the calvarium. IMPRESSION: 1. Subtle enhancement of the stuart. This may represent a capillary telangiectasia, as this does not de monstrate the appearance typical for an pathologically enhancing lesion. If available, correlation with prior exams would prove useful for confirmation of stability. Otherwise, short-term follow-up in 2-3 months may be obtained to exclude progression. 2. Diffuse marrow heterogeneity of the calvarium indicates osseous metastatic disease. This may be fu rther assessed with follow-up CT of head exam, as clinically necessary. Transcribed Date/Time: 01/13/2019 4:38 PM
--- NOTE | 2019-01-13 17:16 | PDOC.HOSPP ---
- Subjective Encounter Date: 01/13/19 Encounter Time: 11:30 Subjective: pt up in bed no complains - Objective Vital Signs & Weight: Vital Signs (12 hours) Temp Pulse Pulse Resp BP BP BP 01/13/19 13:05 117 H 16 01/13/19 11:14 108 H 110/66 01/13/19 08:32 111/60 01/13/19 08:15 99.7 F H 117 H 16 112/79 01/13/19 06:10 109 H 16 Pulse Ox 01/13/19 13:05 01/13/19 11:14 01/13/19 08:32 01/13/19 08:15 99 01/13/19 06:10 Weight Admit Weight 111 lb Weight 122 lb 14.4 oz I&O: 01/12/19 01/13/19 01/14/19 06:59 06:59 06:59 Intake Total 1480 1130 Balance 1480 1130 Result Diagrams: 01/13/19 09:24 01/13/19 09:24 Hospitalist ROS - Review of Systems Respiratory: denies: cough, dry, shortness of breath, hemoptysis, SOB with excertion, pleuritic pain, sputum, wheezing, other Cardiovascular: denies: chest pain, palpitations, orthopnea, paroxysmal noc. dyspnea, edema, light headedness, other Gastrointestinal: denies: nausea, vomiting, abdominal pain, diarrhea, constipation, melena, hematochezia, other - Medication Medications: Active Medications Generic Name Dose Route Start Last Admin Trade Name Freq PRN Reason Stop Dose Admin Acetaminophen 650 mg 12/26/18 13:27 01/09/19 19:59 Tylenol PO 650 mg Q4H PRN Administration Headache/Fever/Mild Pain (1-3) Hydrocodone Bitart/Acetaminophen 1 tab 12/26/18 16:19 01/13/19 15:02 [place] 10/325 PO 1 tab Q4H PRN Administration Severe Pain (7-10) Albuterol/Ipratropium 3 ml 01/04/19 19:00 01/13/19 13:05 Duoneb NEB 3 ml [id number] REBEKAH Administration Bisacodyl 10 mg 12/27/18 09:00 01/13/19 08:39 Dulcolax [place] Not Given DAILY REBEKAH Calcium Carbonate 1,000 mg 12/26/18 13:27 01/08/19 22:39 Tums PO 1,000 mg Q4H PRN Administration Heartburn or Indigestion Clonazepam 1 mg 12/26/18 21:00 01/12/19 20:07 Klonopin PO 1 mg Q24HR REBEKAH Administration Lidocaine HCl 15 ml/ Al 0 ml 01/11/19 17:00 01/13/19 14:43 Hydroxide/Mg Hydroxide 15 ml/ SSW Not Given Diphenhydramine HCl 37.5 mg ACHS REBEKAH Enoxaparin Sodium 30 mg 12/31/18 21:00 01/12/19 20:07 Lovenox SC 30 mg 2100 REBEKAH Administration Famotidine 20 mg 12/31/18 09:00 01/13/19 08:45 Pepcid PO 20 mg BID REBEKAH Administration Ibuprofen 400 mg 01/09/19 10:06 01/10/19 19:57 Motrin PO 400 mg Q4H PRN Administration Fever > 101 Menthol/Methyl Salicylate 0 gm 12/28/18 18:36 12/29/18 00:27 Muscle Rub Cream (Bengay) TOP 85 gm QID PRN Administration Muscle Pain Mirtazapine 15 mg 01/12/19 21:00 01/12/19 20:07 Remeron PO 15 mg HS REBEKAH Administration Morphine Sulfate 4 mg 12/26/18 17:50 01/13/19 11:13 Morphine SLOW IVP 4 mg Q4H PRN Administration Moderate to Severe Pain (6-10) Morphine Sulfate 30 mg 12/28/18 09:00 01/13/19 08:30 Ms Contin PO 30 mg Q12HR REBEKAH Administration Ondansetron HCl 4 mg 12/26/18 13:27 12/29/18 16:37 Zofran Odt PO 4 mg Q6H PRN Administration Nausea/Vomiting Ondansetron HCl 4 mg 12/26/18 13:27 01/09/19 14:42 Zofran IVP 4 mg Q6H PRN Administration Nausea/Vomiting Polyethylene Glycol 17 gm 01/01/19 09:00 01/13/19 08:39 Miralax PO Not Given DAILY REBEKAH Potassium Chloride 40 meq 01/10/19 08:00 01/13/19 08:39 K-Dur PO 40 meq BID-WM REBEKAH Administration Senna/Docusate Sodium 2 tab 12/26/18 21:00 01/13/19 08:34 Senokot S PO 2 tab BID REBEKAH Administration Simethicone 80 mg 12/28/18 20:41 12/29/18 05:54 Mylicon Chewable PO 80 mg PCHS PRN Administration Gas Pain Sodium Chloride 10 ml 01/05/19 09:00 01/13/19 08:41 Flush - Normal Saline IVF 10 ml Q12HR REBEKAH Administration - Exam Heart: negative: RRR, no murmur, no gallops, no rubs, normal peripheral pulses, irregular, diminshed peripheral pulses, murmur present, II/IV, III/IV Respiratory: negative: CTAB, no wheezes, no rales, no ronchi, normal chest expansion, no tachypnea, normal percussion, rales, rhonchi, tachypneic, wheezes Gastrointestinal: negative: soft, non-tender, non-distended, normal bowel sounds , no palpable masses, no hepatomegaly, no splenomegaly, no bruit, no guarding, no rigidity, tender to palpation, distended, diminished bowl sounds, voluntary guarding Hosp A/P (1) Bone metastases Code(s): C79.51 - SECONDARY MALIGNANT NEOPLASM OF BONE Status: Acute (2) Physical deconditioning Code(s): R53.81 - OTHER MALAISE Status: Acute (3) Chronic anemia Code(s): D64.9 - ANEMIA, UNSPECIFIED Status: Chronic (4) Compression fracture of T11 vertebra Code(s): S22.080A - WEDGE COMPRESSION FRACTURE OF T11-T12 VERTEBRA, INIT Status: Chronic Qualifiers: Encounter type: subsequent encounter (5) Hypercalcemia of malignancy Code(s): E83.52 - HYPERCALCEMIA Status: Resolved - Plan s/p radiation, her mobility is improving. She is trying to eat more and was encouraged to do so. she is waiting for placement. labs stable. MRI ordered since nursing felt her mentation has changed from her baseline.
[2019-01-13] MEDS: Carvedilol 3.125 MG TAB PO SCH (17:58)
[2019-01-13] MEDS: Mirtazapine 15 MG TAB PO SCH (20:42)
[2019-01-13] MEDS: clonazePAM 1 MG TAB PO SCH (20:42)
[2019-01-13] MEDS: Enoxaparin Sodium 30 MG/0.3 ML SYRINGE SC SCH (20:43)
[2019-01-14] MEDS: HYDROcodone/Acetaminophen 10/325 mg Tablet PO PRN ×4 (01:47→20:16)
[2019-01-14] MEDS: Polyethylene Glycol 3350 17 GM Packet PO SCH (08:31)
[2019-01-14] MEDS: Morphine ER 30 MG TAB PO SCH ×2 (08:31→20:16)
[2019-01-14] MEDS: MAGNESIUM HYDROXIDE SSW SCH ×4 (08:32→20:23)
[2019-01-14] MEDS: Senokot S 8.6-50 MG TAB PO SCH ×2 (08:32→20:16)
[2019-01-14] MEDS: VISCOUS SSW SCH ×4 (08:32→20:23)
[2019-01-14] MEDS: Famotidine 20 MG TAB PO SCH ×2 (08:32→20:17)
[2019-01-14] MEDS: [UNRECOGNIZED DRUG - OTHER] SSW SCH ×4 (08:32→20:23)
[2019-01-14] MEDS: ALUMINUM SSW SCH ×4 (08:32→20:23)
[2019-01-14] MEDS: LIDOCAINE 2% SSW SCH ×4 (08:32→20:23)
[2019-01-14] MEDS: Carvedilol 3.125 MG TAB PO SCH ×2 (08:32→18:01)
[2019-01-14] MEDS: Bisacodyl 10 MG SUPP PR SCH (11:23)
[2019-01-14] MEDS: Potassium Chloride 20 MEQ TAB PO SCH ×2 (11:23→18:02)
--- NOTE | 2019-01-14 17:21 | PDOC.HOSPP ---
- Subjective Encounter Date: 01/14/19 Encounter Time: 13:00 Subjective: Ms. Chu was seen today in follow-up of hypercalcemia, and encephalopathy. She tells me she feels fine today. She does not have any new complaints. - Objective Vital Signs & Weight: Vital Signs (12 hours) Pulse Resp BP Pulse Ox 01/14/19 14:00 110 H 12 01/14/19 09:00 98 01/14/19 07:48 105 H 14 98/55 L 95 01/14/19 06:30 111 H 12 Weight Admit Weight 111 lb Weight 122 lb 14.4 oz I&O: 01/13/19 01/14/19 01/15/19 06:59 06:59 06:59 Intake Total 1130 1230 Balance 1130 1230 Result Diagrams: 01/13/19 09:24 01/13/19 09:24 Hospitalist ROS - Medication Medications: Active Medications Generic Name Dose Route Start Last Admin Trade Name Freq PRN Reason Stop Dose Admin Acetaminophen 650 mg 12/26/18 13:27 01/09/19 19:59 Tylenol PO 650 mg Q4H PRN Administration Headache/Fever/Mild Pain (1-3) Hydrocodone Bitart/Acetaminophen 1 tab 01/14/19 09:54 01/14/19 14:04 [place] 10/325 PO 1 tab Q4H PRN Administration Pain Albuterol/Ipratropium 3 ml 01/04/19 19:00 01/14/19 14:00 Duoneb NEB 3 ml [id number] REBEKAH Administration Bisacodyl 10 mg 12/27/18 09:00 01/14/19 11:23 Dulcolax [place] Not Given DAILY REBEKAH Calcium Carbonate 1,000 mg 12/26/18 13:27 01/08/19 22:39 Tums PO 1,000 mg Q4H PRN Administration Heartburn or Indigestion Carvedilol 3.125 mg 01/13/19 17:00 01/14/19 08:32 Coreg PO 3.125 mg BID-WM REBEKAH Administration Clonazepam 1 mg 12/26/18 21:00 01/13/19 20:42 Klonopin PO 1 mg Q24HR REBEKAH Administration Lidocaine HCl 15 ml/ Al 0 ml 01/11/19 17:00 01/14/19 14:03 Hydroxide/Mg Hydroxide 15 ml/ SSW 5 el Diphenhydramine HCl 37.5 mg ACHS REBEKAH Administration Enoxaparin Sodium 30 mg 12/31/18 21:00 01/13/19 20:43 Lovenox SC 30 mg 2100 REBEKAH Administration Famotidine 20 mg 12/31/18 09:00 01/14/19 08:32 Pepcid PO 20 mg BID REBEKAH Administration Ibuprofen 400 mg 01/09/19 10:06 01/10/19 19:57 Motrin PO 400 mg Q4H PRN Administration Fever > 101 Menthol/Methyl Salicylate 0 gm 12/28/18 18:36 12/29/18 00:27 Muscle Rub Cream (Bengay) TOP 85 gm QID PRN Administration Muscle Pain Mirtazapine 15 mg 01/12/19 21:00 01/13/19 20:42 Remeron PO 15 mg HS REBEKAH Administration Morphine Sulfate 4 mg 12/26/18 17:50 01/13/19 11:13 Morphine SLOW IVP 4 mg Q4H PRN Administration Moderate to Severe Pain (6-10) Morphine Sulfate 30 mg 12/28/18 09:00 01/14/19 08:31 Ms Contin PO 30 mg Q12HR REBEKAH Administration Ondansetron HCl 4 mg 12/26/18 13:27 12/29/18 16:37 Zofran Odt PO 4 mg Q6H PRN Administration Nausea/Vomiting Ondansetron HCl 4 mg 12/26/18 13:27 01/09/19 14:42 Zofran IVP 4 mg Q6H PRN Administration Nausea/Vomiting Polyethylene Glycol 17 gm 01/01/19 09:00 01/14/19 08:31 Miralax PO 17 gm DAILY REBEKAH Administration Potassium Chloride 40 meq 01/10/19 08:00 01/14/19 11:23 K-Dur PO Not Given BID-WM REBEKAH Senna/Docusate Sodium 2 tab 12/26/18 21:00 01/14/19 08:32 Senokot S PO 2 tab BID REBEKAH Administration Simethicone 80 mg 12/28/18 20:41 12/29/18 05:54 Mylicon Chewable PO 80 mg PCHS PRN Administration Gas Pain Sodium Chloride 10 ml 01/05/19 09:00 01/14/19 08:33 Flush - Normal Saline IVF 10 ml Q12HR REBEKAH Administration - Exam Eye: PERRL, anicteric sclera Heart: RRR, no murmur, no gallops, no rubs, normal peripheral pulses Respiratory: CTAB, no wheezes, no rales, no ronchi, normal chest expansion, no tachypnea, normal percussion Gastrointestinal: soft, non-tender, non-distended, normal bowel sounds, no palpable masses, no hepatomegaly, no splenomegaly Extremities: no cyanosis, no clubbing, no edema Psychiatric: normal behavior, A&O x 3 Hosp A/P (1) Breast cancer metastasized to bone Code(s): C50.919 - MALIGNANT NEOPLASM OF UNSP SITE OF UNSPECIFIED FEMALE BREAST ; C79.51 - SECONDARY MALIGNANT NEOPLASM OF BONE Status: Acute Qualifiers: Laterality: left Qualified Code(s): C50.912 - Malignant neoplasm of unspecified site of left female breast; C79.51 - Secondary malignant neoplasm of bone (2) Physical deconditioning Code(s): R53.81 - OTHER MALAISE Status: Acute (3) Compression fracture of T11 vertebra Code(s): S22.080A - WEDGE COMPRESSION FRACTURE OF T11-T12 VERTEBRA, INIT Status: Chronic Qualifiers: Encounter type: subsequent encounter (4) Hypercalcemia of malignancy Code(s): E83.52 - HYPERCALCEMIA Status: Resolved - Plan * Encephalopathy- resolved- due to hypercalcemia * Breast cancer with bone metastasis- she is currently undergoing radiation for Thoracic spine mets. MRI revealed previously unknown metastasis to the calvarium - will discuss with Oncology how to address this * Hypercalcemia- corrected * Deconditioning- continue PT/OT and awaiting Rehab placement
[2019-01-14] MEDS: Morphine 4 MG/ML VIAL SLOW IVP PRN (20:15)
[2019-01-14] MEDS: clonazePAM 1 MG TAB PO SCH (20:16)
[2019-01-14] MEDS: Mirtazapine 15 MG TAB PO SCH (20:17)
[2019-01-14] MEDS: Enoxaparin Sodium 30 MG/0.3 ML SYRINGE SC SCH (20:17)
[2019-01-15] MEDS: HYDROcodone/Acetaminophen 10/325 mg Tablet PO PRN ×5 (00:57→19:54)
[2019-01-15 05:44] LABS: Anion Gap 11 mmol/L (10-20); BUN (Urea Nitrogen) 10 mg/dL (9.8-20.1); Calc. Creatinine Clearance 72 mL/min (70-130); Calcium 8.9 mg/dL (7.8-10.44); Carbon Dioxide 29 mmol/L (23-31); Chloride 104 mmol/L (98-107); Estimated GFR-MDRD 82; Glucose 129 mg/dL (80-115); Potassium 4.3 mmol/L (3.5-5.1); Sodium 140 mmol/L (136-145)
[2019-01-15] MEDS: Polyethylene Glycol 3350 17 GM Packet PO SCH (08:45)
[2019-01-15] MEDS: ALUMINUM SSW SCH ×4 (08:45→22:44)
[2019-01-15] MEDS: Senokot S 8.6-50 MG TAB PO SCH ×2 (08:45→19:56)
[2019-01-15] MEDS: LIDOCAINE 2% SSW SCH ×4 (08:45→22:44)
[2019-01-15] MEDS: VISCOUS SSW SCH ×4 (08:45→22:44)
[2019-01-15] MEDS: [UNRECOGNIZED DRUG - OTHER] SSW SCH ×4 (08:45→22:44)
[2019-01-15] MEDS: Carvedilol 3.125 MG TAB PO SCH ×2 (08:45→17:36)
[2019-01-15] MEDS: MAGNESIUM HYDROXIDE SSW SCH ×4 (08:45→22:44)
[2019-01-15] MEDS: Morphine ER 30 MG TAB PO SCH ×2 (08:46→19:56)
[2019-01-15] MEDS: Famotidine 20 MG TAB PO SCH ×2 (08:46→19:56)
[2019-01-15] MEDS: Bisacodyl 10 MG SUPP PR SCH (08:47)
[2019-01-15] MEDS: Potassium Chloride 20 MEQ TAB PO SCH ×2 (10:44→17:37)
--- NOTE | 2019-01-15 13:29 | PDOC.HOSPP ---
- Subjective Encounter Date: 01/15/19 Encounter Time: 13:27 Subjective: Ms. Chu was seen today in follow-up of metastatic breast cancer. She does not have any new complaints. She has been up in a chair. She says her appetite has improved some. - Objective Vital Signs & Weight: Vital Signs (12 hours) Temp Pulse Resp BP Pulse Ox 01/15/19 09:44 97.6 F 111 H 16 122/69 96 01/15/19 08:00 96 01/15/19 06:20 110 H 12 Weight Admit Weight 111 lb Weight 122 lb 14.4 oz I&O: 01/14/19 01/15/19 01/16/19 06:59 06:59 06:59 Intake Total 1230 840 Balance 1230 840 Result Diagrams: 01/13/19 09:24 01/15/19 03:30 Hospitalist ROS - Medication Medications: Active Medications Generic Name Dose Route Start Last Admin Trade Name Freq PRN Reason Stop Dose Admin Acetaminophen 650 mg 12/26/18 13:27 01/09/19 19:59 Tylenol PO 650 mg Q4H PRN Administration Headache/Fever/Mild Pain (1-3) Hydrocodone Bitart/Acetaminophen 1 tab 01/14/19 09:54 01/15/19 08:46 [place] 10/325 PO 1 tab Q4H PRN Administration Pain Albuterol/Ipratropium 3 ml 01/04/19 19:00 01/15/19 06:20 Duoneb NEB 3 ml [id number] REBEKAH Administration Bisacodyl 10 mg 12/27/18 09:00 01/15/19 08:47 Dulcolax [place] Not Given DAILY REBEKAH Calcium Carbonate 1,000 mg 12/26/18 13:27 01/08/19 22:39 Tums PO 1,000 mg Q4H PRN Administration Heartburn or Indigestion Carvedilol 3.125 mg 01/13/19 17:00 01/15/19 08:45 Coreg PO 3.125 mg BID-WM REBEKAH Administration Clonazepam 1 mg 12/26/18 21:00 01/14/19 20:16 Klonopin PO 1 mg Q24HR REBEKAH Administration Lidocaine HCl 15 ml/ Al 0 ml 01/11/19 17:00 01/15/19 08:45 Hydroxide/Mg Hydroxide 15 ml/ SSW 5 el Diphenhydramine HCl 37.5 mg ACHS REBEKAH Administration Enoxaparin Sodium 30 mg 12/31/18 21:00 01/14/19 20:17 Lovenox SC 30 mg 2100 REBEKAH Administration Famotidine 20 mg 12/31/18 09:00 01/15/19 08:46 Pepcid PO 20 mg BID REBEKAH Administration Ibuprofen 400 mg 01/09/19 10:06 01/10/19 19:57 Motrin PO 400 mg Q4H PRN Administration Fever > 101 Menthol/Methyl Salicylate 0 gm 12/28/18 18:36 12/29/18 00:27 Muscle Rub Cream (Bengay) TOP 85 gm QID PRN Administration Muscle Pain Mirtazapine 15 mg 01/12/19 21:00 01/14/19 20:17 Remeron PO 15 mg HS REBEKAH Administration Morphine Sulfate 4 mg 12/26/18 17:50 01/14/19 20:15 Morphine SLOW IVP 4 mg Q4H PRN Administration Moderate to Severe Pain (6-10) Morphine Sulfate 30 mg 12/28/18 09:00 01/15/19 08:46 Ms Contin PO 30 mg Q12HR REBEKAH Administration Ondansetron HCl 4 mg 12/26/18 13:27 12/29/18 16:37 Zofran Odt PO 4 mg Q6H PRN Administration Nausea/Vomiting Ondansetron HCl 4 mg 12/26/18 13:27 01/09/19 14:42 Zofran IVP 4 mg Q6H PRN Administration Nausea/Vomiting Polyethylene Glycol 17 gm 01/01/19 09:00 01/15/19 08:45 Miralax PO 17 gm DAILY REBEKAH Administration Potassium Chloride 40 meq 01/10/19 08:00 01/15/19 10:44 K-Dur PO Not Given BID-WM REBEKAH Senna/Docusate Sodium 2 tab 12/26/18 21:00 01/15/19 08:45 Senokot S PO 2 tab BID REBEKAH Administration Simethicone 80 mg 12/28/18 20:41 12/29/18 05:54 Mylicon Chewable PO 80 mg PCHS PRN Administration Gas Pain Sodium Chloride 10 ml 01/05/19 09:00 01/15/19 08:48 Flush - Normal Saline IVF 10 ml Q12HR REBEKAH Administration - Exam Eye: PERRL, anicteric sclera Heart: RRR, no murmur, no gallops, no rubs, normal peripheral pulses Respiratory: CTAB, no wheezes, no rales, no ronchi, normal chest expansion, no tachypnea, normal percussion Gastrointestinal: soft, non-tender, non-distended, normal bowel sounds, no palpable masses, no hepatomegaly, no splenomegaly, no bruit Extremities: no cyanosis, no clubbing, no edema Hosp A/P (1) Breast cancer metastasized to bone Code(s): C50.919 - MALIGNANT NEOPLASM OF UNSP SITE OF UNSPECIFIED FEMALE BREAST ; C79.51 - SECONDARY MALIGNANT NEOPLASM OF BONE Status: Acute Qualifiers: Laterality: left Qualified Code(s): C50.912 - Malignant neoplasm of unspecified site of left female breast; C79.51 - Secondary malignant neoplasm of bone (2) Physical deconditioning Code(s): R53.81 - OTHER MALAISE Status: Acute (3) Compression fracture of T11 vertebra Code(s): S22.080A - WEDGE COMPRESSION FRACTURE OF T11-T12 VERTEBRA, INIT Status: Chronic Qualifiers: Encounter type: subsequent encounter (4) Hypercalcemia of malignancy Code(s): E83.52 - HYPERCALCEMIA Status: Resolved - Plan * Encephalopathy- resolved * Breast cancer with bone metastasis- she is currently undergoing radiation for Thoracic spine mets. * Hypercalcemia- corrected * Deconditioning- continue PT/OT and awaiting Rehab placement
[2019-01-15] MEDS: Mirtazapine 15 MG TAB PO SCH (19:55)
[2019-01-15] MEDS: Enoxaparin Sodium 30 MG/0.3 ML SYRINGE SC SCH (19:57)
[2019-01-15] MEDS: clonazePAM 1 MG TAB PO SCH (19:57)
[2019-01-16] MEDS: HYDROcodone/Acetaminophen 10/325 mg Tablet PO PRN ×3 (04:36→17:26)
[2019-01-16] MEDS: ALUMINUM SSW SCH ×4 (09:00→16:23)
[2019-01-16] MEDS: [UNRECOGNIZED DRUG - OTHER] SSW SCH ×4 (09:00→16:23)
[2019-01-16] MEDS: Carvedilol 3.125 MG TAB PO SCH ×4 (09:00→16:18)
[2019-01-16] MEDS: Potassium Chloride 20 MEQ TAB PO SCH ×3 (09:00→16:22)
[2019-01-16] MEDS: VISCOUS SSW SCH ×4 (09:00→16:23)
[2019-01-16] MEDS: LIDOCAINE 2% SSW SCH ×4 (09:00→16:23)
[2019-01-16] MEDS: MAGNESIUM HYDROXIDE SSW SCH ×4 (09:00→16:23)
[2019-01-16] MEDS: Famotidine 20 MG TAB PO SCH ×3 (09:01→19:58)
[2019-01-16] MEDS: Bisacodyl 10 MG SUPP PR SCH ×2 (09:01→10:01)
[2019-01-16] MEDS: Polyethylene Glycol 3350 17 GM Packet PO SCH ×2 (09:01→09:58)
[2019-01-16] MEDS: Senokot S 8.6-50 MG TAB PO SCH ×3 (09:01→19:59)
[2019-01-16] MEDS: Morphine ER 30 MG TAB PO SCH ×3 (09:01→19:58)
[2019-01-16 12:10] LABS: Hemoglobin 8.5 g/dL (12.0-16.0); Mean Corpuscular HGB CONC 32.5 g/dL (32.0-36.0); Mean Corpuscular Hemoglobin 31.1 pg (27.0-31.0); Mean Corpuscular Volume 95.7 fL (78.0-98.0); Mean Platelet Volume 7.5 fL (7.4-10.4); Platelet Count 180 thou/uL (130-400); RBC Distribution Width 17.9 % (11.5-14.5); Red Blood Cell (RBC) Count 2.74 mill/uL (4.20-5.40); White Blood Cell (WBC) Count 8.6 thou/uL (4.8-10.8)
[2019-01-16 12:15] LABS: Anion Gap 12 mmol/L (10-20); BUN (Urea Nitrogen) 12 mg/dL (9.8-20.1); Calc. Creatinine Clearance 76 mL/min (70-130); Calcium 8.7 mg/dL (7.8-10.44); Carbon Dioxide 28 mmol/L (23-31); Chloride 103 mmol/L (98-107); Estimated GFR-MDRD 88; Glucose 136 mg/dL (80-115); Potassium 4.3 mmol/L (3.5-5.1); Sodium 139 mmol/L (136-145)
[2019-01-16 12:29] LABS: Band 9 % (5-11); Eosinophils 3 % (0-10); Lymphocytes 16 % (21-51); MDiff Complete? YES; Metamyelocyte 3 % (0-0); Monocytes 9 % (0-10); Myelocyte 8 % (0-0); Neutrophil 52 % (42-75); Nucleated RBC 6 % (0); Ovalocytes SLIGHT = 2-5 cells (100X) (0-1/hpf); Platelet Morphology Comment Appears Adequate; Polychromasia MODERATE = 3-4 cells (100X) (0-2/hpf)
--- NOTE | 2019-01-16 15:05 | PDOC.MOPN ---
Interval History: Doing well, plans to go to rehab today. No pain. - Vital Signs Vital Signs: Vital Signs (12 hours) Pulse Resp Pulse Ox 01/16/19 08:06 119 H 16 92 L 01/16/19 08:00 96 Weight Admit Weight 111 lb Weight 122 lb 14.4 oz - Physical Exam General: Alert, Oriented x3, No acute distress HEENT: Atraumatic, PERRLA, EOMI, Mucous membr. moist/pink Lungs: Clear to auscultation, Normal air movement Cardiovascular: Regular rate, Normal S1, Normal S2, No murmurs, Gallops, Rubs Abdomen: Normal bowel sounds, Soft, No tenderness, No hepatospenomegaly, No masses Extremities: No clubbing, No cyanosis, No edema, Normal pulses, No tenderness/ swelling Skin: No rashes, No breakdown, No significant lesion Neurological: Normal gait, Normal speech, Strength at 5/5 X4 ext, Normal tone, Sensation intact, Cranial nerves 3-12 NL, Reflexes 2+ Psych/Mental Status: Mental status NL, Mood NL - Labs Result Diagrams: 01/16/19 11:34 01/16/19 11:34 Lab results: Laboratory Results - last 24 hr 01/16/19 11:34: WBC 8.6, RBC 2.74 L, Hgb 8.5 L, Hct 26.2 L, MCV 95.7, MCH 31.1 H , MCHC 32.5, RDW 17.9 H, Plt Count 180, MPV 7.5, Neutrophils % (Manual) 52, Band Neuts % (Manual) 9, Lymphocytes % (Manual) 16 L, Monocytes % (Manual) 9, Eosinophils % (Manual) 3, Metamyelocytes % (Man) 3 H, Myelocytes % 8 H, Neutrophils # Not Reportable, Lymphocytes # Not Reportable, Nucleated RBCs # ( Man) 6 H, Plt Morphology Comment Appears Adequate, Polychromasia MODERATE = 3-4 cells H, Ovalocytes SLIGHT = 2-5 cells 01/16/19 11:34: Sodium 139, Potassium 4.3, Chloride 103, Carbon Dioxide 28, Anion Gap 12, BUN 12, Creatinine 0.68, Estimated GFR (MDRD) 88, Glucose 136 H, Calcium 8.7 Status: lab reviewed by me A/P - Problem (1) Breast cancer metastasized to bone Current Visit: Yes Code(s): C50.919 - MALIGNANT NEOPLASM OF UNSP SITE OF UNSPECIFIED FEMALE BREAST; C79.51 - SECONDARY MALIGNANT NEOPLASM OF BONE Status: Acute Qualifiers: Laterality: left Qualified Code(s): C50.912 - Malignant neoplasm of unspecified site of left female breast; C79.51 - Secondary malignant neoplasm of bone (2) Bone metastases Current Visit: Yes Code(s): C79.51 - SECONDARY MALIGNANT NEOPLASM OF BONE Status: Acute (3) Hypercalcemia of malignancy Current Visit: Yes Code(s): E83.52 - HYPERCALCEMIA Status: Resolved - Plan Plan: 1. DC to rehab 2. Follow-up Dr. Marin once discharged, call for appt
--- NOTE | 2019-01-16 15:13 | PDOC.HOSPP ---
- Subjective Encounter Date: 01/16/19 Encounter Time: 15:11 Subjective: Ms. Chu was seen today in follow-up of metastatuc breast cancer, and thoracic spine mets. She does not have any new complaints. - Objective Vital Signs & Weight: Vital Signs (12 hours) Pulse Resp Pulse Ox 01/16/19 08:06 119 H 16 92 L 01/16/19 08:00 96 Weight Admit Weight 111 lb Weight 122 lb 14.4 oz I&O: 01/15/19 01/16/19 01/17/19 06:59 06:59 06:59 Intake Total 840 1150 Balance 840 1150 Result Diagrams: 01/16/19 11:34 01/16/19 11:34 Hospitalist ROS - Medication Medications: Active Medications Generic Name Dose Route Start Last Admin Trade Name Freq PRN Reason Stop Dose Admin Acetaminophen 650 mg 12/26/18 13:27 01/09/19 19:59 Tylenol PO 650 mg Q4H PRN Administration Headache/Fever/Mild Pain (1-3) Hydrocodone Bitart/Acetaminophen 1 tab 01/14/19 09:54 01/16/19 10:24 [place] 10/325 PO 1 tab Q4H PRN Administration Pain Albuterol/Ipratropium 3 ml 01/04/19 19:00 01/16/19 15:09 Duoneb NEB Not Given [id number] REBEKAH Bisacodyl 10 mg 12/27/18 09:00 01/16/19 10:01 Dulcolax KS 10 mg DAILY REBEKAH Administration Calcium Carbonate 1,000 mg 12/26/18 13:27 01/08/19 22:39 Tums PO 1,000 mg Q4H PRN Administration Heartburn or Indigestion Carvedilol 3.125 mg 01/13/19 17:00 01/16/19 10:15 Coreg PO 3.125 mg BID-WM REBEKAH Administration Clonazepam 1 mg 12/26/18 21:00 01/15/19 19:57 Klonopin PO 1 mg Q24HR REBEKAH Administration Lidocaine HCl 15 ml/ Al 0 ml 01/11/19 17:00 01/16/19 13:25 Hydroxide/Mg Hydroxide 15 ml/ SSW 15 el Diphenhydramine HCl 37.5 mg ACHS REBEKAH Administration Enoxaparin Sodium 30 mg 12/31/18 21:00 01/15/19 19:57 Lovenox SC 30 mg 2100 REBEKAH Administration Famotidine 20 mg 12/31/18 09:00 01/16/19 09:58 Pepcid PO 20 mg BID REBEKAH Administration Ibuprofen 400 mg 01/09/19 10:06 01/10/19 19:57 Motrin PO 400 mg Q4H PRN Administration Fever > 101 Menthol/Methyl Salicylate 0 gm 12/28/18 18:36 12/29/18 00:27 Muscle Rub Cream (Bengay) TOP 85 gm QID PRN Administration Muscle Pain Mirtazapine 15 mg 01/12/19 21:00 01/15/19 19:55 Remeron PO 15 mg HS REBEKAH Administration Morphine Sulfate 4 mg 12/26/18 17:50 01/14/19 20:15 Morphine SLOW IVP 4 mg Q4H PRN Administration Moderate to Severe Pain (6-10) Morphine Sulfate 30 mg 12/28/18 09:00 01/16/19 09:59 Ms Contin PO 30 mg Q12HR REBEKAH Administration Ondansetron HCl 4 mg 12/26/18 13:27 12/29/18 16:37 Zofran Odt PO 4 mg Q6H PRN Administration Nausea/Vomiting Ondansetron HCl 4 mg 12/26/18 13:27 01/09/19 14:42 Zofran IVP 4 mg Q6H PRN Administration Nausea/Vomiting Polyethylene Glycol 17 gm 01/01/19 09:00 01/16/19 09:58 Miralax PO 17 gm DAILY REBEKAH Administration Potassium Chloride 40 meq 01/10/19 08:00 01/16/19 09:59 K-Dur PO 40 meq BID-WM REBEKAH Administration Senna/Docusate Sodium 2 tab 12/26/18 21:00 01/16/19 10:00 Senokot S PO 2 tab BID REBEKAH Administration Simethicone 80 mg 12/28/18 20:41 12/29/18 05:54 Mylicon Chewable PO 80 mg PCHS PRN Administration Gas Pain Sodium Chloride 10 ml 01/05/19 09:00 01/16/19 09:02 Flush - Normal Saline IVF Not Given Q12HR REBEKAH - Exam Eye: PERRL, anicteric sclera Heart: RRR, no murmur, no gallops, no rubs Respiratory: CTAB, no wheezes, no rales, no ronchi, normal chest expansion, no tachypnea, normal percussion Gastrointestinal: soft, non-tender, non-distended, normal bowel sounds, no palpable masses, no hepatomegaly Extremities: no cyanosis, no edema Hosp A/P (1) Breast cancer metastasized to bone Code(s): C50.919 - MALIGNANT NEOPLASM OF UNSP SITE OF UNSPECIFIED FEMALE BREAST ; C79.51 - SECONDARY MALIGNANT NEOPLASM OF BONE Status: Acute Qualifiers: Laterality: left Qualified Code(s): C50.912 - Malignant neoplasm of unspecified site of left female breast; C79.51 - Secondary malignant neoplasm of bone (2) Physical deconditioning Code(s): R53.81 - OTHER MALAISE Status: Acute (3) Compression fracture of T11 vertebra Code(s): S22.080A - WEDGE COMPRESSION FRACTURE OF T11-T12 VERTEBRA, INIT Status: Chronic Qualifiers: Encounter type: subsequent encounter (4) Hypercalcemia of malignancy Code(s): E83.52 - HYPERCALCEMIA Status: Resolved - Plan * Encephalopathy- resolved * Breast cancer with bone metastasis- she is currently undergoing radiation for Thoracic spine mets. * Hypercalcemia- corrected * She has received insurance approval to go to Rehab- will transfer today
[2019-01-16 15:46] VITALS: BP 120/72; TEMP 99.2
[2019-01-16] MEDS: Morphine 4 MG/ML VIAL SLOW IVP PRN (19:33)
[2019-01-16] MEDS: Enoxaparin Sodium 30 MG/0.3 ML SYRINGE SC SCH (19:57)
[2019-01-16] MEDS: Mirtazapine 15 MG TAB PO SCH (19:58)
[2019-01-16] MEDS: clonazePAM 1 MG TAB PO SCH (19:59)
== END 2019-01-16 21:10 | DRG 477 ==
LOC: ERS 09:39 → ERHOLD 12:17 → 2SE 14:13 → ONC 12-29 21:11
PROVIDERS: ADMIT Internal Medicine; ATTEND Internal Medicine
PROC: 0QB33ZX Excision of Left Pelvic Bone, Percutaneous Approach, Diagnostic (ICD-10-PCS; principal; 2018-12-27)
PROC: 3E0234Z Introduction of Serum, Toxoid and Vaccine into Muscle, Percutaneous Approach (ICD-10-PCS; 2018-12-27)
PROC: 0JH63WZ Insertion of Totally Implantable Vascular Access Device into Chest Subcutaneous Tissue and Fascia, Percutaneous Approach (ICD-10-PCS; 2019-01-03)
PROC: 02HV33Z Insertion of Infusion Device into Superior Vena Cava, Percutaneous Approach (ICD-10-PCS; 2019-01-03)
PROC: DPYC7ZZ Contact Radiation of Other Bone (ICD-10-PCS; 2019-01-04)
PROC: B518ZZA Fluoroscopy of Superior Vena Cava, Guidance (ICD-10-PCS; 2019-01-04)
PROC: 30233N1 Transfusion of Nonautologous Red Blood Cells into Peripheral Vein, Percutaneous Approach (ICD-10-PCS; 2019-01-10)
DX: C79.51 Secondary malignant neoplasm of bone (principal); G93.41 Metabolic encephalopathy; J96.01 Acute respiratory failure with hypoxia; N17.9 Acute kidney failure, unspecified; M84.58XA Pathological fracture in neoplastic disease, other specified site, initial encounter for fracture; Z51.5 Encounter for palliative care; C50.912 Malignant neoplasm of unspecified site of left female breast; E83.52 Hypercalcemia; E78.5 Hyperlipidemia, unspecified; G43.909 Migraine, unspecified, not intractable, without status migrainosus; K59.00 Constipation, unspecified; E86.0 Dehydration; N18.3 Chronic kidney disease, stage 3 (moderate); D63.1 Anemia in chronic kidney disease; D72.829 Elevated white blood cell count, unspecified; R00.0 Tachycardia, unspecified; F41.9 Anxiety disorder, unspecified; G89.29 Other chronic pain; E83.39 Other disorders of phosphorus metabolism; E87.6 Hypokalemia; Z87.891 Personal history of nicotine dependence; Z79.891 Long term (current) use of opiate analgesic; Z90.49 Acquired absence of other specified parts of digestive tract; Z90.710 Acquired absence of both cervix and uterus; Z92.21 Personal history of antineoplastic chemotherapy; Z90.722 Acquired absence of ovaries, bilateral; Z90.79 Acquired absence of other genital organ(s); Z23 Encounter for immunization
CPT/HCPCS: 20225; 36415; 36430; 70553; 71045; 71046; 72157; 72158; 74019; 77012; 77014; 77280; 77290; 77306; 77332; 77412; 77417; 78582; 80048; 80053; 81001; 82306; 83735; 83970; 84100; 84484; 85025; 85610; 85730; 86850; 86900; 86901; 87086; 88307; 88311; 88333; 88334; 88341; 88342; 93005; 93010; 93306; 94640; 96361; 96374; 96375; 96376; A9540; A9558; A9577; C1788; J0630; J0670; J0690; J1100; J1170; J1642; J1644; J1650; J1940; J2001; J2250; J2270; J2405; J2704; J2997; J3010; J3475; J3480; J3489; J3490; J7620; L0639; P9016; Q0162; Q0163

== ENCOUNTER 2019-01-26 12:08 | Outpatient (CLI) | payer OTHER | END 2019-01-26 12:09 | disposition home or self-care (01) | LOC: EKG 12:08 | PROVIDERS: ATTEND Internal Medicine Hematology & Oncology | DX: Z51.11 Encounter for antineoplastic chemotherapy (principal); C50.412 Malignant neoplasm of upper-outer quadrant of left female breast; C79.51 Secondary malignant neoplasm of bone | CPT/HCPCS: 93005; 93010 ==

== ENCOUNTER 2019-02-09 12:47 | Outpatient (CLI) | payer OTHER ==
--- NOTE | 2019-02-09 14:00 | RAD ---
EXAM: XR Ribs Lt>=2 View STANDARD PROVIDED CLINICAL HISTORY: Secondary malignant neoplasm of bone. Injury after a fall. Patient states bilateral rib pain. COMPARISON: Chest x-ray on 01/21/2019 FINDINGS: Again noted is a small left pleural effusion and atelectasis at the left lung base. No pneumothorax i s seen on this exam. Scarring is seen in the left perihilar region. There is a healing fracture involving the lateral left sixth rib. No additional rib fracture is appreciated. No obvious lytic or sclerotic osseous lesions are seen. Degenerative change seen in the spine. Partial visualization of a right subclavian Mediport catheter is noted. IMPRESSION: 1. Healing lateral left sixth rib fracture. 2. Left pleural effusion with linear densities in the left midlung zone left perihilar location proba jonny due to mild chronic lung changes.
--- NOTE | 2019-02-09 14:03 | RAD ---
EXAM: XR Ribs Rt>=2 view STANDARD PROVIDED CLINICAL HISTORY: Bilateral rib pain after a fall. Secondary malignant neoplasm of bone. COMPARISON: Chest x-ray on 01/21/2019. FINDINGS: Right subclavian Mediport catheter again remains in place. Persistent small right pleural effusion an d atelectasis is identified. There are several healing posterior right-sided rib fractures which involve the posterior right sixth, seventh, eighth and ninth ribs. There is also a healing fracture i nvolving the lateral right 10th rib. No pneumothorax is visualized. Degenerative changes are seen in the spine. Vascular calcifications are seen in thoracic aorta. IMPRESSION: 1. Multiple healing posterior and lateral right-sided rib fractures. 2. Persistent small right pleural effusion and atelectasis.
== END 2019-02-09 12:48 | disposition home or self-care (01) ==
LOC: BICRAD 12:47
PROVIDERS: ATTEND Internal Medicine
DX: C50.412 Malignant neoplasm of upper-outer quadrant of left female breast (principal); C79.51 Secondary malignant neoplasm of bone; S22.41XD Multiple fractures of ribs, right side, subsequent encounter for fracture with routine healing; J90 Pleural effusion, not elsewhere classified; J98.11 Atelectasis; J98.4 Other disorders of lung
CPT/HCPCS: 80053; 86300

== ENCOUNTER 2019-04-06 07:27 | Outpatient (CLI) | payer OTHER ==
--- NOTE | 2019-04-06 08:40 | ULT ---
ULTRASOUND ABDOMEN COMPLETE: DATE: 04/06/2019 HISTORY: 63-year-old female with metastatic breast cancer presents with generalized abdominal pain. TECHNIQUE: Grayscale ultrasound evaluation of the liver, gallbladder, spleen, pancreas, common duct, kidneys, ab dominal aorta, and inferior vena cava (IVC). FINDINGS: Small amount of free fluid in the peritoneal cavity. 3.5 cm right renal lower pole partially exophytic cyst. No hydronephrosis bilaterally. No splenomegaly. No major hepatic abnormality identified. No abdominal aortic aneurysm. IVC unremarkable where visualized. No pancreatic sonographic abnormality identified. Common duct caliber 4 mm. Gallbladder not visualized. IMPRESSION: 1. Small volume of ascites. 2. Status post cholecystectomy.
== END 2019-04-06 07:28 | disposition home or self-care (01) ==
LOC: ULT 07:27
PROVIDERS: ATTEND Internal Medicine Hematology & Oncology
DX: R10.9 Unspecified abdominal pain (principal); R18.8 Other ascites; C79.51 Secondary malignant neoplasm of bone; C50.412 Malignant neoplasm of upper-outer quadrant of left female breast; E78.5 Hyperlipidemia, unspecified; Z90.49 Acquired absence of other specified parts of digestive tract
CPT/HCPCS: 93975

== ENCOUNTER 2019-04-24 09:01 | Outpatient (CLI) | payer OTHER ==
--- NOTE | 2019-04-24 10:37 | CT ---
CHEST CT WITH CONTRAST ABDOMEN CT WITH CONTRAST PELVIC CT WITH CONTRAST: HISTORY: Breast cancer. Left lumpectomy. Correlation: None. COMPARISON: 12/08/2018. FINDINGS: Chest CT: Mediastinum: No mass, lymphadenopathy or hematoma. Aorta: Appropriate caliber of the thoracic and abdominal aorta. No aneurysm or dissection. Heart: Upper normal cardiac silhouette. No pericardial fluid. Trachea and central bronchi: Patent. Pleural spaces: Interval development of moderate to large bilateral pleural effusions. Right lung: Right lower lobe consolidation likely due to atelectasis. Pneumonia and/or aspiration can not be entirely excluded. Left lung:Left lower lobe consolidation may be due to atelectasis. Pneumonia and/or aspiration cannot be excluded. Calcified granulomatous nodules in the left lower lobe and left hilum are noted. Pneumothorax: None. Abdomen CT: Gallbladder: Unremarkable. Portal vein: Patent. Liver: Abnormal attenuation involving the right hepatic lobe, in the region of previously noted enhan cement may represent. There appears to be nodularity and retraction of the liver suggesting interval development of hepatic fibrosis. An enhancing mass is not appreciated. Spleen: Appropriate enhancement. Pancreas: Appropriate enhancement. Adrenal glands: Appropriate enhancement. Lymphadenopathy: No gastrohepatic, retrocrural or periportal lymphadenopathy. Kidneys: Symmetric enhancement of the kidneys. No obstructive uropathy. Stable cortical hypodensities compatible with cysts. Mesentery: Interval development of a copious amount of free fluid in the abdomen and pelvis. Alimentary canal: Gastric mucosa, duodenum and multiple normal caliber small bowel loops. Unremarkabl e ileocecal junction. Normal caliber appendix. Contrast and fecal material in a nondistended, nondilated colon. Pelvis CT: Interval development of fluid in the pelvis. Unremarkable urinary bladder. No mass, lymphadenopathy o r free air. There is diffuse edema of the soft tissues, compatible with anasarca. Osseous structures: Redemonstration of multifocal osseous metastases. Stable loss of vertebral body h eight in the thoracic spine. New/acute pathologic fractures are not appreciated. IMPRESSION: 1. Multifocal osseous metastases, redemonstrated. 2. Interval development of bilateral large pleural effusions. Adjacent lung parenchymal consolidation may be due to atelectasis, pneumonia or aspiration. 3. Interval development of a significant amount of free fluid in the abdomen and pelvis. 4. Interval development of fibrotic changes involving the liver. Results of study conveyed to Dr. Marin via [employer] 04/24/2019 10:37 AM Code CR Transcribed Date/Time: 04/24/2019 10:45 AM
--- NOTE | 2019-04-24 13:41 | NM ---
WHOLE BODY BONE SCAN: HISTORY: Right-sided breast cancer. TECHNIQUE: Patient was administered 32.20 mCi of technetium 99m MDP intravenously. Whole body imaging was perfor med after appropriate delay. COMPARISON: 12/15/2018. CORRELATION: CT chest, abdomen, and pelvis 04/24/2019. FINDINGS: There is decreased distribution of the radiotracer in the soft tissue structures, kidneys and extrare nal collecting system. Multifocal osseous metastases are noted. The overall degree and distribution is similar to the previous examination. IMPRESSION: Multifocal osseous metastases involving the calvarium, axial skeleton including the ribs and bony pel vis. Transcribed Date/Time: 04/24/2019 1:59 PM
[2019-04-24] MEDS ORDERED: Iopamidol 370 76% 100 ML VIAL ONE (14:57)
== END 2019-04-24 09:02 | disposition home or self-care (01) ==
LOC: CT 09:01
PROVIDERS: ATTEND Internal Medicine Hematology & Oncology
DX: C50.412 Malignant neoplasm of upper-outer quadrant of left female breast (principal); C79.51 Secondary malignant neoplasm of bone; J90 Pleural effusion, not elsewhere classified; K74.0 Hepatic fibrosis; R91.8 Other nonspecific abnormal finding of lung field
CPT/HCPCS: 71260; 74177; 78306; 82565; A9503; Q9967

== ENCOUNTER 2019-04-25 11:51 | Outpatient (CLI) | payer OTHER ==
[2019-04-25] MEDS ORDERED: Magnevist 469MG/ML 20 ML VIAL ONE (13:43)
--- NOTE | 2019-04-25 14:03 | MRI ---
MRI BRAIN WITH AND WITHOUT CONTRAST: DATE: 04/25/2019 HISTORY: 63-year-old female with metastatic breast cancer. C50.412 malignant neoplasm of upper outer quadrant of left female breast. C79.51 secondary malignant neoplasm of bone. COMPARISON: 01/13/2019. TECHNIQUE: Multiple sequences obtained in axial, sagittal, and coronal planes; pre and post IV injection of gado linium-based contrast agent: 10 mL MultiHance. FINDINGS: Again noted is the faint, approximately 1.5 cm, lace-like, ill-defined patch of mild enhancement, in the mid stuart anteriorly. It has not changed. It has minimally increased signal intensity on the FLAIR sequence. This is consistent with capillary telangiectasia. It is not consistent with a brain metast asis. There is no other intra-axial signal abnormality or abnormal enhancement. No restricted diffusion, re mote or recent intra-axial hemorrhage, mass effect, midline shift, or extra-axial fluid collection. V entricles are normal in size and configuration. Diffuse, innumerable, faint tiny foci of nodular enha ncement throughout the calvarium. No interval change overall. IMPRESSION: 1. The brain is essentially normal. No brain metastasis. 2. Diffuse osseous metastatic involvement of the calvarium. 3. Incidental finding of capillary telangiectasia in the stuart. 4. No interval change overall since 01/13/2019. MIAN Myrick POS: [facility]
== END 2019-04-25 11:52 | disposition home or self-care (01) ==
LOC: MRI 11:51
PROVIDERS: ATTEND Internal Medicine Hematology & Oncology
DX: C50.412 Malignant neoplasm of upper-outer quadrant of left female breast (principal); C79.51 Secondary malignant neoplasm of bone; R93.7 Abnormal findings on diagnostic imaging of other parts of musculoskeletal system; I78.1 Nevus, non-neoplastic
CPT/HCPCS: 70553; A9579

== ENCOUNTER 2019-05-03 07:37 | Day surgery (SDC) | payer OTHER ==
[2019-05-02 13:30] VITALS: BMI 18.5
[~2019-05-03 07:37] MED LIST: FLU VACC QS2019-20(6MOS UP)/PF 60 MCG/0.5 ML SYRINGE IM ONE; Prevnar 13-Val Conj/PF 0.5 ML SYRINGE IM ONE
[2019-05-03 08:00] LABS: INR-International Normal Ratio 1.2; PTT 34.4 SEC (22.9-36.1)
[2019-05-03] MEDS ORDERED: Lidocaine 1% PF 5 ML VIAL ONE (08:00)
[2019-05-03] MEDS ORDERED: Sodium Chloride 0.9% 10 ML ONE ×2 (08:00→10:25)
[2019-05-03] MEDS ORDERED: Sodium Bicarbonate 2.5 MEQ/5 ML VIAL ONE (08:00)
[2019-05-03 09:05] VITALS: BP 111/74; TEMP 99.2
[2019-05-03 10:54] LABS: Fluid, Protein 2.2 g/dL (Not Available)
[2019-05-03 10:54] LABS: Fluid, Protein 1.4 g/dL (Not Available)
--- NOTE | 2019-05-03 10:56 | ULT ---
ABDOMINAL PARACENTESIS UNDER ULTRASOUND GUIDANCE: INDICATIONS: Patient with metastatic breast cancer. Ascites. Diagnostic abdominal paracentesis is requested. FINDINGS: A four quadrant ultrasound revealed low volume ascites. A pocket of fluid in the left lower quadrant was chosen for puncture. This fluid was punctured under ultrasound guidance using a 5 Cuban Yueh cat heter, and 1 L of yellowish-cloudy acidic fluid was removed and sent to pathology. PROCEDURE IN DETAIL: A four quadrant ultrasound showed low volume ascites. The left lower quadrant was chosen for puncture . The skin was prepped and draped in a sterile manner. Local anesthesia was administered with Lidocai ne, under ultrasound guidance. A 5 Cuban Yueh catheter with needle in place was introduced into the fluid in the left lower quadrant, under ultrasound guidance. The needle was removed and the catheter was attached to suction drainage, and 620 mL of yellowish-cloudy acidic fluid was removed. Post proce dure film showed minimal residual ascites. The patient tolerated the procedure well and there were no problems or complications. POS: [facility]
--- NOTE | 2019-05-03 11:02 | ULT ---
ULTRASOUND GUIDED THORACENTESIS LEFT CHEST: INDICATIONS: Patient with metastatic breast cancer. Bilateral pleural effusions. Diagnostic thoracentesis is reque sted. FINDINGS: The patient was placed upright and ultrasound of the chest, posterior, showed bilateral pleural effus ions. The left chest was chosen for puncture, and 620 mL of dark, cloudy pleural fluid was removed fr om the left chest. The fluid was sent to the lab for diagnostic studies. PROCEDURE IN DETAIL: Ultrasound of the posterior chest revealed bilateral pleural effusions. The left hemithorax is chosen for sampling. The entry site was identified with ultrasound. The skin was then prepped and draped in a sterile manner. Local anesthesia was administered with Lidocaine, under ultrasound guidance. A 5 F rench [employer] catheter with needle in place was introduced into the pleural fluid, in the left chest, fr om a posterior approach, with ultrasound guidance. The needle was removed and the catheter was attach ed to suction and drainage and 620 mL of dark, cloudy fluid removed. Post procedure ultrasound showed minimal residual effusion. The patient tolerated the procedure well. The patient was sent for a post procedure chest x-ray in good condition. POS: [facility]
[2019-05-03 11:24] LABS: RBC Count-Automated (BF) 2571 /cumm; WBC/Nucleated-Auto (BF) 250 uL
[2019-05-03 11:25] LABS: RBC Count-Automated (BF) 549 /cumm; WBC/Nucleated-Auto (BF) 58 uL
--- NOTE | 2019-05-03 11:26 | RAD ---
CHEST TWO VIEWS: INDICATIONS: Post left chest thoracentesis exam. TECHNIQUE: Upright inspiration and expiration views were obtained. FINDINGS: Bilateral pleural effusions are noted, smaller on the left. The patient is post left chest thoracente sis. No evidence of pneumothorax. There are scattered calcified nodular opacities and interstitial pr ominence associated with bilateral effusions. IMPRESSION: No evidence of post procedure pneumothorax. POS: [facility]
[2019-05-03 12:00] LABS: BF Color Yellow; Body Fluid Source Ascites Body Fluid; Clarity Hazy (Clear); Tube # EDTA
[2019-05-03 12:00] LABS: BF Color Yellow; Body Fluid Source Thoracentesis Fluid; Clarity Hazy (Clear); Tube # EDTA
[2019-05-03 12:45] LABS: BF Segmented Neutrophils 1 %; Cell Count Non Hematic 23 %; Lymphocytes 76 %
[2019-05-03 12:47] LABS: BF Segmented Neutrophils 3 %; Cell Count Non Hematic 85 %; Lymphocytes 12 %
== END 2019-05-03 10:45 | disposition home or self-care (01) ==
LOC: ULT 07:37
PROVIDERS: ATTEND Internal Medicine Hematology & Oncology
PROC: BW40ZZZ Ultrasonography of Abdomen (ICD-10-PCS; principal; 2019-05-03)
PROC: 0W9G3ZZ Drainage of Peritoneal Cavity, Percutaneous Approach (ICD-10-PCS; principal; 2019-05-03)
PROC: BB4BZZZ Ultrasonography of Pleura (ICD-10-PCS; principal; 2019-05-03)
PROC: 0BJQ3ZZ Inspection of Pleura, Percutaneous Approach (ICD-10-PCS; principal; 2019-05-03)
DX: C79.81 Secondary malignant neoplasm of breast (principal); C80.1 Malignant (primary) neoplasm, unspecified; R18.8 Other ascites; J91.0 Malignant pleural effusion; E78.5 Hyperlipidemia, unspecified; Z79.899 Other long term (current) drug therapy; Z80.1 Family history of malignant neoplasm of trachea, bronchus and lung; Z80.49 Family history of malignant neoplasm of other genital organs; Z87.891 Personal history of nicotine dependence
CPT/HCPCS: 36415; 49083; 71045; 76942; 82945; 83615; 84157; 85060; 85610; 85730; 88112; 88305; 88341; 88342; 89051; J1642; J2001

== ENCOUNTER 2019-07-18 09:58 | Outpatient (CLI) | payer OTHER ==
--- NOTE | 2019-07-18 11:49 | MRI ---
BRAIN MRI WITH AND WITHOUT CONTRAST: Date: 07/18/2019 COMPARISON: 04/25/2019. HISTORY: Breast cancer, re-evaluate pontine enhancement. TECHNIQUE: Multiplanar, multisequence MR imaging of the brain provided with and without contrast. FINDINGS: The axial gradient echo imaging demonstrates no evidence for acute intracranial hemorrhage. The diffu marcelo-weighted imaging demonstrates no evidence for acute infarction. No midline shift or mass effect is seen. There is no ventricular enlargement. There is mild mucosal thickening involving the alveolar recess of the right maxillary sinus. Imaged p aranasal sinuses and mastoid air cells appear grossly unremarkable otherwise. Arterial flow-voids at the axial level of the skull base appear grossly unremarkable on the T2-weight ed imaging. There is a vague, faint area of enhancement involving the ventral aspect of the stuart just to the left of midline, less conspicuous than on the 04/25/2019 examination. There is no FLAIR or T2 correlate. This is felt to most likely represent a benign vascular lesion such as a capillary telangiectasia. Postcontrast imaging appears grossly unremarkable otherwise. Overall signal intensity within the calvarium is heterogeneous with areas of scattered subcentimeter calvarial enhancement, as well as a focus of decreased T1 and T2 signal in the left parietal region s uggesting a sclerotic metastatic focus. IMPRESSION: 1. No convincing evidence for intra-axial metastatic disease. Faint, ill-defined area of enhancement within the stuart is less conspicuous than on the prior examination. Please see above discussion. 2. Abnormal appearance of the calvarium as detailed above, suggesting osseous metastatic disease. POS: [facility]
== END 2019-07-18 09:59 | disposition home or self-care (01) ==
LOC: MRI 09:58
PROVIDERS: ATTEND Internal Medicine Hematology & Oncology
DX: C50.412 Malignant neoplasm of upper-outer quadrant of left female breast (principal); C79.51 Secondary malignant neoplasm of bone; R93.7 Abnormal findings on diagnostic imaging of other parts of musculoskeletal system
CPT/HCPCS: 70553

== ENCOUNTER 2019-07-20 10:07 | Outpatient (CLI) | payer OTHER ==
--- NOTE | 2019-07-20 13:13 | CT ---
CT CHEST AND ABDOMEN AND PELVIS WITH IV ENHANCEMENT: Oral contrast was administered INDICATION: Breast cancer. Bone metastasis. Assess response to treatment. Comparison made to CT chest, abdomen, and pelvis dated 04/24/2019. FINDINGS: CT CHEST: Large bilateral pleural effusions again noted, not significantly changed in size and appearance. Asso ciated compressive lung atelectasis is again seen, stable in appearance. The mediastinum is unremarkable. There are numerous dense opacities seen in the left perihilar region . Some of these appear to be within the bronchial tree. This is stable. Has there been prior barium a spiration? Diffuse osseous metastatic disease involving the bony thorax is stable in appearance. All visualized vertebra and ribs are involved. IMPRESSION: Stable chest findings from prior exam. The large bilateral pleural effusions and lung atelectasis sharath ears stable. CT ABDOMEN AND PELVIS: Moderate to large volume ascites is again seen throughout the abdomen and pelvis, similar to the prio r exam without significant change. Liver, spleen, pancreas, and kidneys unremarkable. The renal cystic lesions are again noted. No hydro nephrosis. Small bowel loops are normal caliber. Large volume stool throughout the colon. Aorta normal caliber. No mass or adenopathy. Diffuse osseous metastatic disease again noted, stable in appearance. IMPRESSION: Stable abdominopelvic findings. The moderate to large volume ascites is unchanged in appearance and t he diffuse osseous metastatic disease is again noted. POS: [facility]
--- NOTE | 2019-07-20 14:22 | NM ---
Exam: Nuclear medicine whole body bone scan COMPARISON: 04/24/2019 HISTORY: Breast cancer with osseous metastases TECHNIQUE: Patient was administered 32.2 mCi of technetium 99m MDP intravenously. Three-hour delayed images were performed FINDINGS: Redemonstration of multifocal osseous metastases involving the calvarium, ribs, thoracic an d lumbar spine. Uptake in the bony pelvis and proximal bilateral hips is felt to be due to metastases. Correlation made with CT performed on 07/20/2019 demonstrates diffuse osseous sclerosis. Ad ditional uptake in both shoulders is felt to be due to degenerative change. IMPRESSION: Multifocal osseous metastases.
== END 2019-07-20 10:08 | disposition home or self-care (01) ==
LOC: CT 10:07
PROVIDERS: ATTEND Internal Medicine Hematology & Oncology
DX: C50.412 Malignant neoplasm of upper-outer quadrant of left female breast (principal); C79.51 Secondary malignant neoplasm of bone; J90 Pleural effusion, not elsewhere classified; J98.11 Atelectasis; R18.8 Other ascites
CPT/HCPCS: 71260; 74177; 78306; A9503

== ENCOUNTER 2019-09-11 09:50 | Day surgery (SDC) | payer OTHER ==
[2019-09-08 16:13] VITALS: BMI 18.5
[2019-09-11] MEDS ORDERED: Sodium Bicarbonate 2.5 MEQ/5 ML VIAL ONE (10:16)
[2019-09-11] MEDS ORDERED: Lidocaine 1% PF 5 ML VIAL ONE (10:16)
[2019-09-11 10:21] LABS: PTT 33.2 sec (22.9-36.1)
--- NOTE | 2019-09-11 12:44 | RAD ---
CHEST 1 VIEW: Date: 09/11/2019 INDICATION: History of dyspnea and desaturation. COMPARISON: CT chest, abdomen, and pelvis dated 07/20/2019. FINDINGS: There is persistent small to moderate left and tiny right pleural effusion. There is persistent opaci ty in the left lower lobe, likely reflective of volume loss. There are areas of subsegmental volume l oss within the right mid lung. This is superimposed on mild scattered emphysema. There is a right debbie st wall port in place. There are surgical clips within the upper abdomen consistent with cholecystect guillermo. Chronic vascular changes are similar appearing. IMPRESSION: 1. Small residual left and tiny right pleural effusion. This has decreased in size from the comparis on of 07/20/2019. 2. Persistent left basilar and right mid lung subsegmental atelectasis. 3. COPD change. POS: [facility]
[2019-09-11] MEDS ORDERED: Albumin 25% 100 ML ONE (13:04)
[2019-09-11] MEDS ORDERED: Sodium Chloride 0.9% 10 ML ONE (13:30)
[2019-09-11 13:43] VITALS: BP 111/70; TEMP 98.5
--- NOTE | 2019-09-11 16:01 | ULT ---
Ultrasound-guided paracentesis: HISTORY: Symptomatic ascites and history of breast cancer. FINDINGS: Informed consent obtained prior to the procedure. Preprocedural imaging demonstrated intrap eritoneal free fluid. An area was marked in the left lower quadrant, and then meticulously prepped and draped in normal archana rile fashion and anesthetized with 1% buffered lidocaine. With direct sonographic guidance, a 19-gauge needle and 5 Luxembourgish Yueh catheter were advanced into the abdomen. After the return of fluid, the catheter was advanced, and the needle was removed. Approximately 6 L of slightly cloudy straw-colored fluid was aspirated. The introducer sheath was rem cuauhtemoc, and hemostasis was achieved with direct pressure. A dry sterile dressing was placed. Post procedure, the patient did complain of shortness of breath upon upright positioning. The patient 's oxygen saturation was mildly diminished from baseline at 88%. Patient's vital signs were otherwise within normal limits without change in blood pressure. Patient did demonstrate tachycardia, but this was unchanged from preprocedure heart rate. As a conservative measure, 25 g of albumin was administered intravenously. Patient was monitored in the radiology department with improvement in symptoms, and patient eventually returned to baseline without shortness of breath upon upright positioning. Patient noted that she was at baseline status after observation for an additional 30 min utes. A chest radiograph was also obtained at this time which demonstrated a moderate size left pleural effusion, but this pleural effusion was seen on a CT of thorax on 07/20/2019. There was also ev idence of a small to moderate size right pleural effusion on the prior CT exam which is not appreciated on this single frontal view of the chest. The patient remained stable on upright positioning with vital signs unchanged from preprocedure and n o further complaints of shortness of breath. As result, the patient was discharged in stable condition. IMPRESSION: Technically successful ultrasound-guided paracentesis.
== END 2019-09-11 14:45 | disposition home or self-care (01) ==
LOC: ULT 09:50
PROVIDERS: ATTEND Internal Medicine Hematology & Oncology
PROC: BW40ZZZ Ultrasonography of Abdomen (ICD-10-PCS; principal; 2019-09-11)
PROC: 0W9G3ZZ Drainage of Peritoneal Cavity, Percutaneous Approach (ICD-10-PCS; principal; 2019-09-11)
DX: R18.8 Other ascites (principal); J90 Pleural effusion, not elsewhere classified; F41.9 Anxiety disorder, unspecified; K21.9 Gastro-esophageal reflux disease without esophagitis; D64.9 Anemia, unspecified; Z85.3 Personal history of malignant neoplasm of breast; Z87.891 Personal history of nicotine dependence
CPT/HCPCS: 36415; 49083; 71045; 85610; 85730; J1642; J2001; P9047

== ENCOUNTER 2019-09-25 08:37 | Day surgery (SDC) | payer OTHER ==
[2019-09-22 10:08] VITALS: BMI 18.5
[2019-09-25] MEDS ORDERED: Prevnar 13-Val Conj/PF 0.5 ML SYRINGE IM ONE (09:00)
[2019-09-25] MEDS ORDERED: Sodium Bicarbonate 2.5 MEQ/5 ML VIAL ONE (09:15)
[2019-09-25] MEDS ORDERED: Lidocaine 1% PF 5 ML VIAL ONE (09:15)
--- NOTE | 2019-09-25 10:36 | ULT ---
Exam: Ultrasound guided paracentesis HISTORY: Ascites COMPARISON: 09/11/2019 FINDINGS: Successful ultrasound-guided paracentesis. Total of 4 L of yellow color ascites was aspirat ed. TECHNIQUE: Consent obtained reformatory ultrasound-guided paracentesis. Right lower quadrant was deem ed appropriate. Skin was prepped and draped in a sterile fashion. 1% lidocaine, buffered with sodium bicarbonate was used for local anesthesia. Under ultrasound guidance, a 5 Spanish 7 cm Yueh cat heter is advanced in the peritoneal space. A total of 4 L of yellow color ascites was aspirated. No immediate or postprocedural complications IMPRESSION: Successful ultrasound-guided paracentesis.
[2019-09-25 11:31] VITALS: BP 106/65; TEMP 98
== END 2019-09-25 10:20 | disposition home or self-care (01) ==
LOC: ULT 08:37
PROVIDERS: ATTEND Internal Medicine Hematology & Oncology
PROC: BW40ZZZ Ultrasonography of Abdomen (ICD-10-PCS; principal; 2019-09-25)
PROC: 0W9G3ZZ Drainage of Peritoneal Cavity, Percutaneous Approach (ICD-10-PCS; principal; 2019-09-25)
DX: R18.8 Other ascites (principal); F41.9 Anxiety disorder, unspecified; D64.9 Anemia, unspecified; Z87.891 Personal history of nicotine dependence
CPT/HCPCS: 49083; J2001

== ENCOUNTER 2019-10-05 08:04 | Day surgery (SDC) | payer OTHER ==
[~2019-10-05 08:04] MED LIST changes: -FLU VACC QS2019-20(6MOS UP)/PF 60 MCG/0.5 ML SYRINGE IM ONE
[2019-10-05] MEDS ORDERED: Sodium Bicarbonate 2.5 MEQ/5 ML VIAL ONE (08:18)
[2019-10-05 10:06] VITALS: BMI 14.9
--- NOTE | 2019-10-05 10:06 | ULT ---
ULTRASOUND-GUIDED PARACENTESIS THERAPEUTIC: DATE: 10/05/2019 HISTORY: 64-year-old female with symptomatic ascites: Abdominal distention. Metastatic breast cancer. TECHNIQUE: Signed informed consent obtained. A four-quadrant survey of abdomen performed. Site selected for puncture: Left lower quadrant Overlying skin prepared and draped in usual sterile fashion. 25-gauge needle used to apply buffered lidocaine superficially and deeply. 5 Seneg[place]e Yueh catheter with stylette advanced into the pocket of free intraperitoneal fluid. After drainage, the Yueh catheter was removed. Patient tolerated the procedure well. No complications. FINDINGS: Volume of ascites prior to procedure:large. Volume of ascites fluid in the drainage pocket after drainage:moderate. Volume of ascites fluid drained:4600 mL Appearance of ascites fluid:nonhemorrhagic, straw-colored. IMPRESSION: Successful therapeutic paracentesis, with drainage of 4.6 L of ascites fluid.
[2019-10-05 10:08] VITALS: BP 110/71; TEMP 97.6
== END 2019-10-05 09:50 | disposition home or self-care (01) ==
LOC: ULT 08:04
PROVIDERS: ATTEND Internal Medicine Hematology & Oncology
PROC: 0W9G3ZZ Drainage of Peritoneal Cavity, Percutaneous Approach (ICD-10-PCS; principal; 2019-10-05)
PROC: BW40ZZZ Ultrasonography of Abdomen (ICD-10-PCS; principal; 2019-10-05)
DX: R18.8 Other ascites (principal); C50.412 Malignant neoplasm of upper-outer quadrant of left female breast; E78.5 Hyperlipidemia, unspecified; D64.9 Anemia, unspecified; Z79.899 Other long term (current) drug therapy; Z87.891 Personal history of nicotine dependence; C79.51 Secondary malignant neoplasm of bone; C50.319 Malignant neoplasm of lower-inner quadrant of unspecified female breast
CPT/HCPCS: 49083; 80053; 82248; 83615; 84100; 84550

== ENCOUNTER 2019-10-24 09:19 | Outpatient (CLI) | payer OTHER ==
--- NOTE | 2019-10-24 10:47 | CT ---
EXAM: CT of the chest with contrast CT of the abdomen and pelvis with contrast HISTORY: Malignancy COMPARISON: 07/20/2019 TECHNIQUE: 1. Multiple contiguous axial images were obtained in a CT the chest with contrast. Coronal and sagitt al reformats were performed. 2. Multiple contiguous axial images were obtained and a CT of the abdomen and pelvis with contrast. C oronal and sagittal reformats were performed. FINDINGS: CT CHEST: HEART: Normal in size without focal cardiac abnormality MEDIASTINUM: No hilar or mediastinal lymphadenopathy. LUNGS: No focal infiltrates, nodules, or masses. PLEURAL SPACE: Moderate stable bilateral pleural effusions CHEST WALL SOFT TISSUES: The Mediport is unchanged in position. CT ABDOMEN/PELVIS: ABDOMEN: LIVER: There is atrophy of the left lobe of the liver. A surgical clip is seen in the region of brandi hepatis. No lesions are seen in the right lobe of the liver. BILE DUCTS: Normal caliber. GALLBLADDER: No calcified gallstones. Normal caliber wall. PANCREAS: within normal limits. SPLEEN: within normal limits. ADRENALS: within normal limits. KIDNEYS: Cysts in both kidneys measuring up to 3.2 cm in size. PELVIS: REPRODUCTIVE ORGANS: No pelvic masses. URETERS: within normal limits. BLADDER: within normal limits. PERITONEUM: There is a large amount of ascites which is stable. BOWEL: Normal caliber. MESENTERY AND RETROPERITONEUM: No enlarged mesenteric or retroperitoneal lymph nodes. VESSELS: Normal. ABDOMINAL WALL: within normal limits. OSSEOUS STRUCTURES: Diffuse sclerotic lesions in the bones are consistent with diffuse osseous metast atic disease. IMPRESSION: 1. Diffuse osseous metastatic disease 2. Bilateral pleural effusions 2. Large ascites 4. Bilateral renal cysts 5. Atrophy of the left lobe of the liver.
--- NOTE | 2019-10-24 13:54 | NM ---
WHOLE BODY BONE SCAN: HISTORY: Malignant neoplasm of upper outer quadrant of the left female breast RADIOPHARMACEUTICAL: 30 mCi technetium 99m-MDP injected intravenously COMPARISON:07/20/2019 CORRELATION: CT chest, abdomen and pelvis from today FINDINGS: Multifocal osseous metastatic disease involving the calvarium, ribs, thoracolumbar spine, calvarium, pelvis and proximal femurs are again seen. There scattered degenerative activity in the appendicular skeleton. Tracer excretion through the kidneys is within normal limits. IMPRESSION: Stable extensive osseous metastatic disease.
[2019-10-24] MEDS ORDERED: Iopamidol 370 76% 100 ML VIAL ONE (16:26)
== END 2019-10-24 09:20 | disposition home or self-care (01) ==
LOC: CT 09:19
PROVIDERS: ATTEND Internal Medicine Hematology & Oncology
DX: C50.412 Malignant neoplasm of upper-outer quadrant of left female breast (principal); C79.51 Secondary malignant neoplasm of bone; C22.9 Malignant neoplasm of liver, not specified as primary or secondary; J90 Pleural effusion, not elsewhere classified; R18.8 Other ascites; N28.1 Cyst of kidney, acquired; K72.90 Hepatic failure, unspecified without coma
CPT/HCPCS: 71260; 74177; 78306; A9503; J1642; Q9967

== ENCOUNTER 2019-10-25 10:13 | Day surgery (SDC) | payer OTHER ==
[2019-10-25] MEDS ORDERED: Sodium Bicarbonate 2.5 MEQ/5 ML VIAL ONE (10:59)
[2019-10-25] MEDS ORDERED: Lidocaine 1% PF 5 ML VIAL ONE (10:59)
[2019-10-25 12:31] VITALS: BP 127/75; TEMP 98.4; BMI 14.4
--- NOTE | 2019-10-25 13:32 | ULT ---
Sonographic guided paracentesis HISTORY: Recurrent ascites. FINDINGS: After explaining the procedure and answering all questions, limited sonographic survey show ed a large amount of free fluid throughout the abdomen. Sterile technique, buffered local anesthesia, sonographic guidance, and a right lateral approach were used to carefully advance a 19-gauge Yueh needle and catheter into the free fluid. Catheter was left to drain a total volume of 3.2 L of milky yellow liquid. Catheter was removed with moderate amount of free fluid remaining. Patient tolerated the procedure well and was dismissed in good condition. IMPRESSION : Technically successful sonographic guided paracentesis. Patient was limited to 3.2 L given last week's discomfort and difficulty standing after drainage of 5 L. Moderate amount of free fluid remains.
== END 2019-10-25 12:05 | disposition home or self-care (01) ==
LOC: ULT 10:13
PROVIDERS: ATTEND Internal Medicine Hematology & Oncology
PROC: 0W9G3ZZ Drainage of Peritoneal Cavity, Percutaneous Approach (ICD-10-PCS; principal; 2019-10-25)
PROC: BW40ZZZ Ultrasonography of Abdomen (ICD-10-PCS; principal; 2019-10-25)
DX: R18.8 Other ascites (principal); Z79.899 Other long term (current) drug therapy
CPT/HCPCS: 49083; J1642

== ENCOUNTER 2019-11-01 10:36 | Day surgery (SDC) | payer OTHER ==
[2019-11-01] MEDS ORDERED: Sodium Bicarbonate 2.5 MEQ/5 ML VIAL ONE (10:39)
--- NOTE | 2019-11-01 12:00 | ULT ---
Sonographic guided paracentesis HISTORY: Recurrent ascites. FINDINGS: After swelling the procedure and answering all questions, sonographic survey showed a large amount of free fluid throughout the abdomen. Sterile technique, buffered local anesthesia, sonographic guidance, and a left lateral approach were used to carefully advance a 19-gauge Yueh needle and catheter into the free fluid. Catheter was left to drain a total volume of 3.2 L cloudy yellow liquid. Patient was limited to 3.2 L because of difficulty in the past with tachycardia after drainage. A large amount of free fluid remaining. Patient tolerated the procedure well and was returned in unchanged condition. IMPRESSION : Technically successful sonographic guided paracentesis. 3.2 L.
[2019-11-01 12:47] VITALS: BP 126/82; TEMP 98.5; BMI 14.9
== END 2019-11-01 12:20 | disposition home or self-care (01) ==
LOC: ULT 10:36
PROVIDERS: ATTEND Internal Medicine Hematology & Oncology
PROC: BW40ZZZ Ultrasonography of Abdomen (ICD-10-PCS; principal; 2019-11-01)
PROC: 0W9G3ZZ Drainage of Peritoneal Cavity, Percutaneous Approach (ICD-10-PCS; principal; 2019-11-01)
DX: R18.8 Other ascites (principal); F41.9 Anxiety disorder, unspecified; K21.9 Gastro-esophageal reflux disease without esophagitis; D64.9 Anemia, unspecified; Z79.899 Other long term (current) drug therapy; Z87.891 Personal history of nicotine dependence
CPT/HCPCS: 49083

== ENCOUNTER 2019-11-02 11:51 | Outpatient (CLI) | payer OTHER ==
[2019-11-02 16:21] LABS: #Basophils 0.1 thou/uL (0.0-0.2); #Lymphocytes 1.1 thou/uL (1.20-3.40); #Neutrophils 7.1 thou/uL (1.40-6.50); %Basophils 0.9 % (0.0-1.0); %Eosinophils 0.4 % (0.0-10.0); %Lymphocytes 11.4 % (21.0-51.0); %Monocytes 11.1 % (0.0-10.0); %Neutrophils 76.2 % (42.0-75.0); Hemoglobin 12.1 g/dL (12.0-16.0); Mean Corpuscular HGB CONC 32.2 g/dL (32.0-36.0); Mean Corpuscular Hemoglobin 32.3 pg (27.0-31.0); Mean Platelet Volume 7.5 fL (7.4-10.4); Platelet Count 239 thou/uL (130-400); RBC Distribution Width 15.6 % (11.5-14.5); Red Blood Cell (RBC) Count 3.74 mill/uL (4.20-5.40); White Blood Cell (WBC) Count 9.3 thou/uL (4.8-10.8)
[2019-11-02 16:31] LABS: Anion Gap 16 mmol/L (10-20); BUN (Urea Nitrogen) 14 mg/dL (9.8-20.1); Calc. Creatinine Clearance 0 mL/min (70-130); Calcium 8.1 mg/dL (7.8-10.44); Carbon Dioxide 29 mmol/L (23-31); Chloride 93 mmol/L (98-107); Estimated GFR-MDRD 54; Glucose 441 mg/dL (80-115); Potassium 4.2 mmol/L (3.5-5.1); Sodium 134 mmol/L (136-145)
[2019-11-03 11:46] LABS: SARS-CoV-2 MS2 Positive; SARS-CoV-2 N Gene Negative; SARS-CoV-2 S Gene Negative; SARS-CoV-2 orf1ab Negative
== END 2019-11-02 11:52 | disposition home or self-care (01) ==
LOC: LABBT 11:51
PROVIDERS: ATTEND Specialist
DX: Z01.818 Encounter for other preprocedural examination (principal); Z11.59 Encounter for screening for other viral diseases; C50.919 Malignant neoplasm of unspecified site of unspecified female breast; C79.51 Secondary malignant neoplasm of bone; R18.0 Malignant ascites
CPT/HCPCS: 80048; 85025; 87635; 93005; 93010; U0003

== ENCOUNTER 2019-11-06 07:10 | Day surgery (SDC) | payer OTHER ==
[2019-11-03 13:40] VITALS: BMI 14.2
--- NOTE | 2019-11-06 07:56 | RAD ---
EXAM: CHEST TWO VIEWS 11/06/2019 7:53 AM HISTORY: Preop evaluation COMPARISON: January 21, 2019 FINDINGS: Lungs: There is persistent left basilar atelectasis Heart: Normal in size and contour. Pulmonary Vessels: Normal. Costophrenic Angles: Mild left pleural effusion persists. Small right pleural effusion has resolved Pneumothorax: None. Osseous Structures: Intact. Additional Findings: Surgical clips within the upper abdomen and right chest wall port are stable. IMPRESSION: Persistent small left pleural effusion with basilar atelectasis. Resolution of previously seen small right pleural effusion.
[2019-11-06] MEDS ORDERED: Succinylcholine Chloride 20 MG/ML 10 ml SYRINGE FS ONE (09:52)
[2019-11-06] MEDS ORDERED: Fentanyl 100 MCG/2 ML VIAL ONE (11:24)
[2019-11-06] MEDS ORDERED: Bupivacaine PF 0.5% 30 ML VIAL ONE (11:42)
[2019-11-06] MEDS ORDERED: Lidocaine 1% w/Epinephrine 1:100K 20 ML VIAL ONE (11:42)
[2019-11-06] MEDS ORDERED: Ketamine 50 MG/ML (10ML VIAL) ONE (11:45)
--- NOTE | 2019-11-06 13:02 | OP ---
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 PROCEDURE PERFORMED: Laparoscopic placement of PleurX catheter, intra-abdominal, cuffed tunneled catheter. ANESTHESIA: General, local with 0.5% Marcaine 30 mL, mixed with 1% Xylocaine with epinephrine 20 mL. DESCRIPTION OF PROCEDURE: The patient was taken to the operating room where under general anesthesia, left lateral subcostal incision made. Pneumoperitoneum to 15 mmHg obtained with a Veress needle, replacing with a 5 port and suction placed, evacuated 3 L of ascites fluid. Video laparoscope inserted and the laparoscopic suction directed in the pelvis and the right abdomen, evacuating more ascites fluid, total volume evacuated probably 6.5 to 7 L. Stab incision was made in the right lower quadrant and planned catheter exit site and a counter incision was made just medial and inferior. Using the tunneling device, the PleurX cuffed catheter was placed with the cuff beneath the skin exit site and catheter tunneled to the medial counter incision and then the introducer sheath introduced subcutaneously and directed caudally in the abdominal wall, visualized laparoscopically, penetrating the pelvis dependently. The catheter then placed through the Peel-Away sheath. Peel-Away sheath removed. Catheter was noted to be in good position. This was flushed with heparinized saline solution. Subcutaneous tissue was approximated with 3-0 Monocryl, skin with subdermal Monocryl, and [place] glue and sterile dressings applied. The left lateral subcostal incision after evacuation of pneumoperitoneum was removed and the fascia approximated with figure-eight suture of 0 Vicryl UR needle. The subcutaneous tissue with 4-0 Monocryl and skin with subdermal Monocryl, and [place] glue and sterile dressing applied. The patient tolerated the procedure well. Job ID: [id number]
[2019-11-06] MEDS ORDERED: HYDROcodone/Acetaminophen 5/325 mg Tablet ONE (17:17)
== END 2019-11-06 17:35 | disposition home or self-care (01) ==
LOC: SDC 07:10
PROVIDERS: ATTEND Specialist
PROC: 0WHG43Z Insertion of Infusion Device into Peritoneal Cavity, Percutaneous Endoscopic Approach (ICD-10-PCS; principal; 2019-11-06)
DX: C50.919 Malignant neoplasm of unspecified site of unspecified female breast (principal); C79.51 Secondary malignant neoplasm of bone; R18.0 Malignant ascites; E78.5 Hyperlipidemia, unspecified; Z79.899 Other long term (current) drug therapy; Z87.891 Personal history of nicotine dependence
CPT/HCPCS: 71046; C1729; J0690; J1642; J3010; S0020